=== PATIENT | male | born 1955 | race Caucasian/White ===

== ENCOUNTER 2016-08-24 08:29 | Outpatient (RCR) | payer OTHER ==
--- OUTSIDE RECORDS SUMMARY | 2016-05-29 09:39 | XMS REPORT | Continuity of Care Document ---
Author Author [facility] Organization [facility] Address Unknown Phone Unavailable Care Team Providers Care Tankage Grinder Name Role Phone AMBROSIO LILLY MD PCP Insurance Providers Payer Name Policy Number Subscriber Name Relationship [employer]IGNA [id number] Fabrice Lopez 19 Self / Same As Patient Advance Directives Directive Response Recorded Date/Time Advance Directives No 05/19/16 6:22pm Health Care Power of Law Reporter No 05/19/16 6:22pm Resuscitation Status Full Code 05/19/16 6:22pm Chief Complaint and Reason for Visit Chief Complaint Dental Problems/Pain Reason for Visit Dental abscess Problems Active Problems Medical Problem Onset Date Status Dental abscess Unknown Acute Medications Current Home Medications Medication Dose Units Route Directions Days/Qty Instructions Start Date Lisinopril 5 Mg 5 Mg Oral Daily 01/11/16 Insulin Glargine,Hum.rec.anlog 100 Unit/1 Ml 25 Unit Sub-Q Bedtime 01/11/16 Carbamazepine 200 Mg 200 Mg Oral Twice A Day 01/11/16 Insulin Glargine,Hum.rec.anlog 100 Unit/1 Ml 10 Unit Sub-Q Daily Hydrocodone/Acetaminophen 1 Each 2 Tab Oral Every 4HRS as needed for Pain 01/11/16 Omeprazole 20 Mg 20 Mg Oral Daily 01/11/16 Hydrocodone/Acetaminophen 1 Each 1 Each Oral Every 4HRS as needed for Pain 30 01/28/16 Amoxicillin/Potassium Clav 1 Each 1 Each Oral Twice A Day for Infection 20 05/19/16 Tramadol Hcl 50 Mg 50 Mg Oral Every 4HRS 20 05/19/16 Ondansetron 4 Mg 4 Mg Oral Every 4HRS for Nausea/Vomiting 10 05/19/16 Social History Social History Problem Response Recorded Date/Time Alcohol Use Denies Use 01/28/2016 9:46am Recreational Drug Use No 01/28/2016 9:46am Recent Foreign Travel No 05/19/2016 6:22pm Recent Infectious Disease Exposure No 05/19/2016 6:22pm Hospitalization with Isolation Denies 05/19/2016 6:22pm Smoking Status Current Everyday Smoker 05/19/2016 6:22pm Type Used Cigarettes 05/19/2016 6:22pm Recent Hopitalizations Yes 05/19/2016 6:22pm Hospitalization with Isolation Denies 05/19/2016 6:22pm Query Response Start Date Stop Date Smoking Status Current Everyday Smoker Hospital Discharge Instructions No hospital discharge instructions. Plan of Care Discharge Date 05/19/16 6:50pm Disposition 01 HOME, SELF-CARE Condition at Discharge Stable Instructions/Education Provided Dental Abscess (ED) Prescriptions See Medication Section Referrals ANAYA MANDEL - Primary Care Physician AMBROSIO LILLY MD - Primary Care Physician Additional Instructions/Education FREQUENT SALT WATER SWISHES TYLENOL AND MOTRIN NEEDED FOR PAIN OR FEVER FOLLOW UP WITH YOUR DR ON SUNDAY FOR FURTHER CARE All discharge instructions reviewed with patient and/or family. Voiced understanding. Functional Status No functional status results. Allergies, Adverse Reactions, Alerts No known allergies. Immunizations No immunization records. Vital Signs Acute Vital Signs Vital Response Date/Time Temperature (Fahrenheit) 97.7 degrees F (97.6 - 99.5) 05/19/2016 6:22pm Temperature (Calculated Celsius) 36.62881 degrees C (36.4 - 37.5) 05/19/2016 6:22pm Temperature Source Tympanic 05/19/2016 6:22pm Pulse Rate (adult) 103 bpm (60 - 90) 05/19/2016 6:22pm Respiratory Rate 20 bpm (12 - 24) 05/19/2016 6:22pm O2 Sat by Pulse Oximetry 96 % (88 - 100) 05/19/2016 6:22pm Blood Pressure 183/105 mm Hg 05/19/2016 6:22pm Blood Pressure Mean 131 mm Hg 05/19/2016 6:22pm Pain Numeric Pain Scale 7 05/19/2016 6:22pm Height (Feet) 5 feet 05/19/2016 6:22pm Height (Inches) 10.00 inches 05/19/2016 6:22pm Height (Calculated Centimeters) 177.586153 cm 05/19/2016 6:22pm Weight (Pounds) 200 pounds 05/19/2016 6:22pm Weight (Ounces) 0 oz 05/19/2016 6:22pm Weight (Calculated Grams) 85491.551 gm 05/19/2016 6:22pm Weight (Calculated Kilograms) 90.752380 kilograms 05/19/2016 6:22pm Calculated BMI 27.3 05/19/2016 6:22pm Capillary Refill Capillary Refill Less Than 3 Seconds 05/19/2016 6:22pm Results Laboratory Results Test Name Result Units Flags Reference Collection Date/Time Result Date/ Time Comments White Blood Count 5.2 10^3/uL 4.3-11.0 04/18/2016 1:37pm 04/18/2016 1: 51pm Red Blood Count 5.03 10^6/uL 4.35-5.85 04/18/2016 1:37pm 04/18/2016 1: 51pm Hemoglobin 15.7 G/DL 13.3-17.7 04/18/2016 1:37pm 04/18/2016 1:51pm Hematocrit 45 % 40-54 04/18/2016 1:37pm 04/18/2016 1:51pm Mean Corpuscular Volume 90 FL 80-99 04/18/2016 1:37pm 04/18/2016 1: 51pm Mean Corpuscular Hemoglobin 31 PG 25-34 04/18/2016 1:37pm 04/18/2016 1: 51pm Mean Corpuscular Hemoglobin Concent 35 G/DL 32-36 04/18/2016 1:37pm 1:51pm Red Cell Distribution Width 14.7 % H 10.0-14.5 04/18/2016 1:37pm 2015 1:51pm Platelet Count 126 10^3/uL L 130-400 04/18/2016 1:37pm 04/18/2016 1:51pm Mean Platelet Volume 9.5 FL 7.4-10.4 04/18/2016 1:37pm 04/18/2016 1: 51pm Neutrophils (%) (Auto) 39 % L 42-75 04/18/2016 1:37pm 04/18/2016 1:51pm Lymphocytes (%) (Auto) 45 % H 12-44 04/18/2016 1:37pm 04/18/2016 1:51pm Monocytes (%) (Auto) 15 % H 0-12 04/18/2016 1:37pm 04/18/2016 1:51pm Eosinophils (%) (Auto) 1 % 0-10 04/18/2016 1:37pm 04/18/2016 1:51pm Basophils (%) (Auto) 1 % 0-10 04/18/2016 1:37pm 04/18/2016 1:51pm Neutrophils # (Auto) 2.1 X 10^3 1.8-7.8 04/18/2016 1:37pm 04/18/2016 1: 51pm Lymphocytes # (Auto) 2.3 X 10^3 1.0-4.0 04/18/2016 1:37pm 04/18/2016 1: 51pm Monocytes # (Auto) 0.8 X 10^3 0.0-1.0 04/18/2016 1:37pm 04/18/2016 1: 51pm Eosinophils # (Auto) 0.0 10^3/uL 0.0-0.3 04/18/2016 1:37pm 04/18/2016 1 :51pm Basophils # (Auto) 0.0 10^3/uL 0.0-0.1 04/18/2016 1:37pm 04/18/2016 1: 51pm Sodium Level 131 MMOL/L L 135-145 04/18/2016 1:37pm 04/18/2016 2:18pm Potassium Level 4.3 MMOL/L 3.6-5.0 04/18/2016 1:37pm 04/18/2016 2:18pm Chloride Level 98 MMOL/L 98-107 04/18/2016 1:37pm 04/18/2016 2:18pm Carbon Dioxide Level 25 MMOL/L 21-32 04/18/2016 1:37pm 04/18/2016 2: 18pm Anion Gap 8 MMOL/L 5-14 04/18/2016 1:37pm 04/18/2016 2:18pm Blood Urea Nitrogen 10 MG/DL 7-18 04/18/2016 1:37pm 04/18/2016 2:18pm Creatinine 0.81 MG/DL 0.60-1.30 04/18/2016 1:37pm 04/18/2016 2:18pm BUN/Creatinine Ratio 12 04/18/2016 1:37pm 04/18/2016 2:18pm Estimat Glomerular Filtration Rate > 60 04/18/2016 1:37pm 2015 2:18pm GFR INTERPRETIVE DATA UNITS FOR ESTIMATED GFR (eGFR): mL/min/1.73 M2 REFERENCE RANGE FOR ESTIMATED GFR (eGFR) eGFR NORMAL eGFR >60 MODERATELY DECREASED eGFR 30-59 SEVERLY DECREASED eGFR 15-29 KIDNEY FAILURE <15 (OR DIALYSIS) Glucose Level 347 MG/DL H 70-105 04/18/2016 1:37pm 04/18/2016 2:18pm Calcium Level 8.8 MG/DL 8.5-10.1 04/18/2016 1:37pm 04/18/2016 2:18pm Magnesium Level 1.7 MG/DL L 1.8-2.4 03/01/2016 11:1503/01/2016 11: 42am Total Bilirubin 0.4 MG/DL 0.1-1.0 03/01/2016 11:1503/01/2016 11: 42am Alkaline Phosphatase 129 U/L 40-136 03/01/2016 11:1503/01/2016 11: 42am Aspartate Amino Transf (AST/SGOT) 30 U/L 5-34 03/01/2016 11:152015 11:42am Alanine Aminotransferase (ALT/SGPT) 40 U/L 0-55 03/01/2016 11:1501/2016 11:42am Lactate Dehydrogenase 225 U/L H 125-220 03/01/2016 11:1503/01/2016 11: 42am Total Protein 6.6 G/DL 6.4-8.2 03/01/2016 11:15am 03/01/2016 11:42am Albumin 3.6 G/DL 3.2-4.5 03/01/2016 11:15am 03/01/2016 11:42am Pending Laboratory Results Test Name Collection Date/Time Procedures No known history of procedures. Encounters Encounter Location Arrival/Admit Date Discharge/Depart Date Attending Provider Departed Emergency Room [facility] 05/19/16 5:55pm 05/19 6:50pm AMBROSIO HANSEN DO Registered Recurring [facility] 05/17/16 10:08am ANAYA MANDEL Discharged Recurring [facility] 01/26/16 9:15am 11:59pm ANAYA MANDEL Recent Diagnosis
[2016-05-30 14:42] LABS: BASOPHILS % (AUTO) 0 % (0-10); EOSINOPHILS # (AUTO) 0.1 10^3/uL (0.0-0.3); EOSINOPHILS % (AUTO) 1 % (0-10); LYMPHOCYTES # (AUTO) 2.1 X 10^3 (1.0-4.0); LYMPHOCYTES % (AUTO) 25 % (12-44); MEAN CORPUSCULAR HEMOGLOBIN 32 PG (25-34); MEAN CORPUSCULAR HGB CONC 36 G/DL (32-36); MEAN CORPUSCULAR VOLUME 89 FL (80-99); MEAN PLATELET VOLUME 9.4 FL (7.4-10.4); MONOCYTES # (AUTO) 0.9 X 10^3 (0.0-1.0); MONOCYTES % (AUTO) 11 % (0-12); NEUTROPHILS # (AUTO) 5.3 X 10^3 (1.8-7.8); NEUTROPHILS % (AUTO) 63 % (42-75); PLATELET COUNT 216 10^3/uL (130-400); RED BLOOD COUNT 4.72 10^6/uL (4.35-5.85); RED CELL DISTRIBUTION WIDTH 13.4 % (10.0-14.5); WHITE BLOOD COUNT 8.5 10^3/uL (4.3-11.0)
[2016-05-30 15:08] LABS: ALANINE AMINOTRANSFERASE 35 U/L (0-55); ALBUMIN 3.1 G/DL (3.2-4.5); ANION GAP 10 MMOL/L (5-14); ASPARTATE AMINO TRANSFERASE 28 U/L (5-34); BILIRUBIN,TOTAL 0.4 MG/DL (0.1-1.0); BLOOD UREA NITROGEN 11 MG/DL (7-18); BUN/CREATININE RATIO 14; CALCIUM 8.8 MG/DL (8.5-10.1); CARBON DIOXIDE 22 MMOL/L (21-32); CHLORIDE 99 MMOL/L (98-107); CREATININE SERUM 0.78 MG/DL (0.60-1.30); GFR ESTIMATED > 60; GLUCOSE 325 MG/DL (70-105); LACTATE DEHYDROGENASE 317 U/L (125-220); MAGNESIUM 1.8 MG/DL (1.8-2.4); POTASSIUM 4.2 MMOL/L (3.6-5.0); SODIUM 131 MMOL/L (135-145); TOTAL PROTEIN 6.4 G/DL (6.4-8.2)
[2016-06-16 10:57] LABS: BASOPHILS % (AUTO) 0 % (0-10); EOSINOPHILS % (AUTO) 0 % (0-10); LYMPHOCYTES # (AUTO) 0.5 X 10^3 (1.0-4.0); LYMPHOCYTES % (AUTO) 5 % (12-44); MEAN CORPUSCULAR HEMOGLOBIN 31 PG (25-34); MEAN CORPUSCULAR HGB CONC 35 G/DL (32-36); MEAN CORPUSCULAR VOLUME 88 FL (80-99); MEAN PLATELET VOLUME 9.6 FL (7.4-10.4); MONOCYTES # (AUTO) 0.1 X 10^3 (0.0-1.0); MONOCYTES % (AUTO) 1 % (0-12); NEUTROPHILS # (AUTO) 10.5 X 10^3 (1.8-7.8); NEUTROPHILS % (AUTO) 94 % (42-75); PLATELET COUNT 195 10^3/uL (130-400); RED BLOOD COUNT 5.48 10^6/uL (4.35-5.85); RED CELL DISTRIBUTION WIDTH 13.2 % (10.0-14.5); WHITE BLOOD COUNT 11.1 10^3/uL (4.3-11.0)
[2016-06-16 11:27] LABS: ALANINE AMINOTRANSFERASE 36 U/L (0-55); ALBUMIN 3.7 G/DL (3.2-4.5); ANION GAP 10 MMOL/L (5-14); ASPARTATE AMINO TRANSFERASE 28 U/L (5-34); BILIRUBIN,TOTAL 0.6 MG/DL (0.1-1.0); BLOOD UREA NITROGEN 18 MG/DL (7-18); BUN/CREATININE RATIO 20; CALCIUM 9.1 MG/DL (8.5-10.1); CARBON DIOXIDE 24 MMOL/L (21-32); CHLORIDE 98 MMOL/L (98-107); CREATININE SERUM 0.92 MG/DL (0.60-1.30); GFR ESTIMATED > 60; LACTATE DEHYDROGENASE 274 U/L (125-220); MAGNESIUM 1.8 MG/DL (1.8-2.4); POTASSIUM 5.1 MMOL/L (3.6-5.0); SODIUM 132 MMOL/L (135-145); TOTAL PROTEIN 7.6 G/DL (6.4-8.2)
[2016-06-16 11:30] LABS: GLUCOSE 523 MG/DL (70-105)
[2016-06-22 12:40] LABS: BASOPHILS % (AUTO) 0 % (0-10); EOSINOPHILS % (AUTO) 0 % (0-10); LYMPHOCYTES # (AUTO) 0.5 X 10^3 (1.0-4.0); LYMPHOCYTES % (AUTO) 6 % (12-44); MEAN CORPUSCULAR HEMOGLOBIN 32 PG (25-34); MEAN CORPUSCULAR HGB CONC 36 G/DL (32-36); MEAN CORPUSCULAR VOLUME 89 FL (80-99); MEAN PLATELET VOLUME 10.1 FL (7.4-10.4); MONOCYTES # (AUTO) 0.1 X 10^3 (0.0-1.0); MONOCYTES % (AUTO) 2 % (0-12); NEUTROPHILS # (AUTO) 7.9 X 10^3 (1.8-7.8); NEUTROPHILS % (AUTO) 92 % (42-75); PLATELET COUNT 170 10^3/uL (130-400); RED BLOOD COUNT 5.22 10^6/uL (4.35-5.85); RED CELL DISTRIBUTION WIDTH 12.5 % (10.0-14.5); WHITE BLOOD COUNT 8.6 10^3/uL (4.3-11.0)
[2016-06-22 12:56] LABS: ANION GAP 9 MMOL/L (5-14); BLOOD UREA NITROGEN 21 MG/DL (7-18); BUN/CREATININE RATIO 22; CARBON DIOXIDE 24 MMOL/L (21-32); CHLORIDE 96 MMOL/L (98-107); CREATININE SERUM 0.94 MG/DL (0.60-1.30); GFR ESTIMATED > 60; POTASSIUM 4.5 MMOL/L (3.6-5.0); SODIUM 129 MMOL/L (135-145)
[2016-06-22 12:59] LABS: GLUCOSE 500 MG/DL (70-105)
[2016-06-29 08:53] LABS: BASOPHILS % (AUTO) 0 % (0-10); EOSINOPHILS % (AUTO) 0 % (0-10); LYMPHOCYTES # (AUTO) 0.5 X 10^3 (1.0-4.0); LYMPHOCYTES % (AUTO) 11 % (12-44); MEAN CORPUSCULAR HEMOGLOBIN 32 PG (25-34); MEAN CORPUSCULAR HGB CONC 36 G/DL (32-36); MEAN CORPUSCULAR VOLUME 89 FL (80-99); MEAN PLATELET VOLUME 9.4 FL (7.4-10.4); MONOCYTES # (AUTO) 0.1 X 10^3 (0.0-1.0); MONOCYTES % (AUTO) 2 % (0-12); NEUTROPHILS # (AUTO) 4.2 X 10^3 (1.8-7.8); NEUTROPHILS % (AUTO) 87 % (42-75); PLATELET COUNT 159 10^3/uL (130-400); RED BLOOD COUNT 5.22 10^6/uL (4.35-5.85); RED CELL DISTRIBUTION WIDTH 13.2 % (10.0-14.5); WHITE BLOOD COUNT 4.8 10^3/uL (4.3-11.0)
[2016-06-29 09:22] LABS: ANION GAP 11 MMOL/L (5-14); BLOOD UREA NITROGEN 11 MG/DL (7-18); BUN/CREATININE RATIO 14; CALCIUM 9.3 MG/DL (8.5-10.1); CARBON DIOXIDE 20 MMOL/L (21-32); CHLORIDE 101 MMOL/L (98-107); CREATININE SERUM 0.78 MG/DL (0.60-1.30); GFR ESTIMATED > 60; GLUCOSE 279 MG/DL (70-105); POTASSIUM 4.3 MMOL/L (3.6-5.0); SODIUM 132 MMOL/L (135-145)
[2016-07-06 09:08] LABS: BASOPHILS % (AUTO) 1 % (0-10); EOSINOPHILS % (AUTO) 1 % (0-10); LYMPHOCYTES % (AUTO) 40 % (12-44); MEAN CORPUSCULAR HEMOGLOBIN 32 PG (25-34); MEAN CORPUSCULAR HGB CONC 36 G/DL (32-36); MEAN CORPUSCULAR VOLUME 90 FL (80-99); MEAN PLATELET VOLUME 9.9 FL (7.4-10.4); MONOCYTES # (AUTO) 0.4 X 10^3 (0.0-1.0); MONOCYTES % (AUTO) 14 % (0-12); NEUTROPHILS # (AUTO) 1.2 X 10^3 (1.8-7.8); NEUTROPHILS % (AUTO) 45 % (42-75); PLATELET COUNT 106 10^3/uL (130-400); RED BLOOD COUNT 4.68 10^6/uL (4.35-5.85); RED CELL DISTRIBUTION WIDTH 13.9 % (10.0-14.5); WHITE BLOOD COUNT 2.6 10^3/uL (4.3-11.0)
[2016-07-06 09:44] LABS: ANION GAP 9 MMOL/L (5-14); BLOOD UREA NITROGEN 12 MG/DL (7-18); BUN/CREATININE RATIO 16; CALCIUM 8.6 MG/DL (8.5-10.1); CARBON DIOXIDE 24 MMOL/L (21-32); CHLORIDE 101 MMOL/L (98-107); CREATININE SERUM 0.74 MG/DL (0.60-1.30); GFR ESTIMATED > 60; GLUCOSE 282 MG/DL (70-105); SODIUM 134 MMOL/L (135-145)
[2016-07-13 09:40] LABS: BASOPHILS % (AUTO) 1 % (0-10); EOSINOPHILS % (AUTO) 1 % (0-10); LYMPHOCYTES # (AUTO) 1.1 X 10^3 (1.0-4.0); LYMPHOCYTES % (AUTO) 31 % (12-44); MEAN CORPUSCULAR HEMOGLOBIN 32 PG (25-34); MEAN CORPUSCULAR HGB CONC 35 G/DL (32-36); MEAN CORPUSCULAR VOLUME 89 FL (80-99); MONOCYTES # (AUTO) 0.9 X 10^3 (0.0-1.0); MONOCYTES % (AUTO) 25 % (0-12); NEUTROPHILS # (AUTO) 1.6 X 10^3 (1.8-7.8); NEUTROPHILS % (AUTO) 43 % (42-75); PLATELET COUNT 105 10^3/uL (130-400); RED BLOOD COUNT 5.14 10^6/uL (4.35-5.85); RED CELL DISTRIBUTION WIDTH 14.3 % (10.0-14.5); WHITE BLOOD COUNT 3.7 10^3/uL (4.3-11.0)
[2016-07-13 10:08] LABS: ALANINE AMINOTRANSFERASE 45 U/L (0-55); ALBUMIN 3.6 G/DL (3.2-4.5); ANION GAP 8 MMOL/L (5-14); ASPARTATE AMINO TRANSFERASE 44 U/L (5-34); BILIRUBIN,TOTAL 0.5 MG/DL (0.1-1.0); BLOOD UREA NITROGEN 15 MG/DL (7-18); BUN/CREATININE RATIO 20; CALCIUM 8.8 MG/DL (8.5-10.1); CARBON DIOXIDE 26 MMOL/L (21-32); CHLORIDE 100 MMOL/L (98-107); CREATININE SERUM 0.76 MG/DL (0.60-1.30); GFR ESTIMATED > 60; GLUCOSE 174 MG/DL (70-105); LACTATE DEHYDROGENASE 394 U/L (125-220); MAGNESIUM 1.7 MG/DL (1.8-2.4); POTASSIUM 3.9 MMOL/L (3.6-5.0); SODIUM 134 MMOL/L (135-145)
[2016-07-19 08:53] LABS: BASOPHILS # (AUTO) 0.1 10^3/uL (0.0-0.1); BASOPHILS % (AUTO) 1 % (0-10); EOSINOPHILS # (AUTO) 0.1 10^3/uL (0.0-0.3); EOSINOPHILS % (AUTO) 1 % (0-10); LYMPHOCYTES # (AUTO) 1.1 X 10^3 (1.0-4.0); LYMPHOCYTES % (AUTO) 17 % (12-44); MEAN CORPUSCULAR HEMOGLOBIN 31 PG (25-34); MEAN CORPUSCULAR HGB CONC 35 G/DL (32-36); MEAN CORPUSCULAR VOLUME 89 FL (80-99); MONOCYTES # (AUTO) 0.5 X 10^3 (0.0-1.0); MONOCYTES % (AUTO) 8 % (0-12); NEUTROPHILS # (AUTO) 4.7 X 10^3 (1.8-7.8); NEUTROPHILS % (AUTO) 73 % (42-75); PLATELET COUNT 141 10^3/uL (130-400); RED BLOOD COUNT 4.96 10^6/uL (4.35-5.85); RED CELL DISTRIBUTION WIDTH 14.1 % (10.0-14.5); WHITE BLOOD COUNT 6.4 10^3/uL (4.3-11.0)
[2016-07-19 09:14] LABS: ANION GAP 9 MMOL/L (5-14); BLOOD UREA NITROGEN 12 MG/DL (7-18); BUN/CREATININE RATIO 16; CALCIUM 8.9 MG/DL (8.5-10.1); CARBON DIOXIDE 24 MMOL/L (21-32); CHLORIDE 102 MMOL/L (98-107); CREATININE SERUM 0.73 MG/DL (0.60-1.30); GFR ESTIMATED > 60; GLUCOSE 139 MG/DL (70-105); POTASSIUM 4.1 MMOL/L (3.6-5.0); SODIUM 135 MMOL/L (135-145)
[2016-07-27 08:50] LABS: BASOPHILS % (AUTO) 1 % (0-10); EOSINOPHILS % (AUTO) 1 % (0-10); LYMPHOCYTES # (AUTO) 1.5 X 10^3 (1.0-4.0); LYMPHOCYTES % (AUTO) 30 % (12-44); MEAN CORPUSCULAR HEMOGLOBIN 32 PG (25-34); MEAN CORPUSCULAR HGB CONC 36 G/DL (32-36); MEAN CORPUSCULAR VOLUME 89 FL (80-99); MEAN PLATELET VOLUME 9.3 FL (7.4-10.4); MONOCYTES # (AUTO) 0.6 X 10^3 (0.0-1.0); MONOCYTES % (AUTO) 12 % (0-12); NEUTROPHILS # (AUTO) 2.8 X 10^3 (1.8-7.8); NEUTROPHILS % (AUTO) 56 % (42-75); PLATELET COUNT 149 10^3/uL (130-400); RED BLOOD COUNT 4.86 10^6/uL (4.35-5.85); RED CELL DISTRIBUTION WIDTH 14.4 % (10.0-14.5)
[2016-07-27 09:13] LABS: ANION GAP 10 MMOL/L (5-14); BLOOD UREA NITROGEN 13 MG/DL (7-18); BUN/CREATININE RATIO 17; CALCIUM 8.8 MG/DL (8.5-10.1); CARBON DIOXIDE 24 MMOL/L (21-32); CHLORIDE 103 MMOL/L (98-107); CREATININE SERUM 0.76 MG/DL (0.60-1.30); GFR ESTIMATED > 60; GLUCOSE 181 MG/DL (70-105); POTASSIUM 3.7 MMOL/L (3.6-5.0); SODIUM 137 MMOL/L (135-145)
[2016-08-03 08:49] LABS: BASOPHILS % (AUTO) 1 % (0-10); EOSINOPHILS # (AUTO) 0.1 10^3/uL (0.0-0.3); EOSINOPHILS % (AUTO) 1 % (0-10); LYMPHOCYTES # (AUTO) 1.4 X 10^3 (1.0-4.0); LYMPHOCYTES % (AUTO) 26 % (12-44); MEAN CORPUSCULAR HEMOGLOBIN 32 PG (25-34); MEAN CORPUSCULAR HGB CONC 36 G/DL (32-36); MEAN CORPUSCULAR VOLUME 89 FL (80-99); MEAN PLATELET VOLUME 9.2 FL (7.4-10.4); MONOCYTES # (AUTO) 0.7 X 10^3 (0.0-1.0); MONOCYTES % (AUTO) 13 % (0-12); NEUTROPHILS # (AUTO) 3.2 X 10^3 (1.8-7.8); NEUTROPHILS % (AUTO) 59 % (42-75); PLATELET COUNT 142 10^3/uL (130-400); RED CELL DISTRIBUTION WIDTH 14.6 % (10.0-14.5); WHITE BLOOD COUNT 5.4 10^3/uL (4.3-11.0)
[2016-08-03 09:43] LABS: ANION GAP 10 MMOL/L (5-14); BLOOD UREA NITROGEN 10 MG/DL (7-18); BUN/CREATININE RATIO 14; CALCIUM 8.8 MG/DL (8.5-10.1); CARBON DIOXIDE 24 MMOL/L (21-32); CHLORIDE 103 MMOL/L (98-107); CREATININE SERUM 0.72 MG/DL (0.60-1.30); GFR ESTIMATED > 60; GLUCOSE 119 MG/DL (70-105); POTASSIUM 3.9 MMOL/L (3.6-5.0); SODIUM 137 MMOL/L (135-145)
[2016-08-10 09:40] LABS: BASOPHILS % (AUTO) 0 % (0-10); EOSINOPHILS # (AUTO) 0.1 10^3/uL (0.0-0.3); EOSINOPHILS % (AUTO) 1 % (0-10); LYMPHOCYTES # (AUTO) 1.1 X 10^3 (1.0-4.0); LYMPHOCYTES % (AUTO) 16 % (12-44); MEAN CORPUSCULAR HEMOGLOBIN 31 PG (25-34); MEAN CORPUSCULAR HGB CONC 35 G/DL (32-36); MEAN CORPUSCULAR VOLUME 88 FL (80-99); MEAN PLATELET VOLUME 9.5 FL (7.4-10.4); MONOCYTES # (AUTO) 0.9 X 10^3 (0.0-1.0); MONOCYTES % (AUTO) 12 % (0-12); NEUTROPHILS # (AUTO) 5.1 X 10^3 (1.8-7.8); NEUTROPHILS % (AUTO) 71 % (42-75); PLATELET COUNT 158 10^3/uL (130-400); RED BLOOD COUNT 5.24 10^6/uL (4.35-5.85); RED CELL DISTRIBUTION WIDTH 14.9 % (10.0-14.5); WHITE BLOOD COUNT 7.2 10^3/uL (4.3-11.0)
[2016-08-10 10:07] LABS: ALANINE AMINOTRANSFERASE 44 U/L (0-55); ALBUMIN 3.5 G/DL (3.2-4.5); ANION GAP 7 MMOL/L (5-14); ASPARTATE AMINO TRANSFERASE 49 U/L (5-34); BILIRUBIN,TOTAL 0.6 MG/DL (0.1-1.0); BLOOD UREA NITROGEN 13 MG/DL (7-18); BUN/CREATININE RATIO 15; CALCIUM 8.8 MG/DL (8.5-10.1); CARBON DIOXIDE 24 MMOL/L (21-32); CHLORIDE 103 MMOL/L (98-107); CREATININE SERUM 0.85 MG/DL (0.60-1.30); GFR ESTIMATED > 60; GLUCOSE 316 MG/DL (70-105); LACTATE DEHYDROGENASE 504 U/L (125-220); MAGNESIUM 1.7 MG/DL (1.8-2.4); POTASSIUM 4.3 MMOL/L (3.6-5.0); SODIUM 134 MMOL/L (135-145); TOTAL PROTEIN 6.5 G/DL (6.4-8.2)
[2016-08-17 09:46] LABS: BASOPHILS % (AUTO) 1 % (0-10); EOSINOPHILS # (AUTO) 0.1 10^3/uL (0.0-0.3); EOSINOPHILS % (AUTO) 2 % (0-10); LYMPHOCYTES % (AUTO) 17 % (12-44); MEAN CORPUSCULAR HEMOGLOBIN 32 PG (25-34); MEAN CORPUSCULAR HGB CONC 36 G/DL (32-36); MEAN CORPUSCULAR VOLUME 89 FL (80-99); MEAN PLATELET VOLUME 9.5 FL (7.4-10.4); MONOCYTES # (AUTO) 0.6 X 10^3 (0.0-1.0); MONOCYTES % (AUTO) 11 % (0-12); NEUTROPHILS # (AUTO) 4.1 X 10^3 (1.8-7.8); NEUTROPHILS % (AUTO) 69 % (42-75); PLATELET COUNT 150 10^3/uL (130-400); RED BLOOD COUNT 4.87 10^6/uL (4.35-5.85); RED CELL DISTRIBUTION WIDTH 14.1 % (10.0-14.5); WHITE BLOOD COUNT 5.9 10^3/uL (4.3-11.0)
[2016-08-17 10:06] LABS: ANION GAP 9 MMOL/L (5-14); BLOOD UREA NITROGEN 15 MG/DL (7-18); BUN/CREATININE RATIO 17; CALCIUM 8.6 MG/DL (8.5-10.1); CARBON DIOXIDE 25 MMOL/L (21-32); CHLORIDE 99 MMOL/L (98-107); CREATININE SERUM 0.86 MG/DL (0.60-1.30); GFR ESTIMATED > 60; GLUCOSE 331 MG/DL (70-105); POTASSIUM 4.3 MMOL/L (3.6-5.0); SODIUM 133 MMOL/L (135-145)
[~2016-08-24] VITALS: Ht 175.3 cm; Wt 88.5 kg
[~2016-08-24 08:29] MED LIST: AMOX-358 PO; APIX5TAB PO; CARB-88 PO; CARB200T2 PO; CARB400T8 PO; CARBOPLATIN IV SCH; DILT300C51 PO; FAMOTIDINE 20MG/2ML IV (CANCER CTR) IV SCH; FLUO20TA28 PO; FURO20TA4 PO; HYDR-3454 PO; HYDR-3812 PO; HYDR-757 PO; INSU100V16 SQ; INSU100V6 SQ; LISI-556 PO; NORMAL SALINE IV SCH; NS IV 1000 ML (CANCER CTR) 1,000 ML ONE; NS IV 1000 ML (CANCER CTR) IV SCH; NS IV 500 ML (CANCER CENTER) 500 ML ONE; OMEP20CA6 PO; OMEP40CA36 PO; ONDA4TAB8 PO; ONDA8TAB6 PO; ONDN4T PO; PACLITAXEL SEMI SYNTHETIC IV SCH; PALONOSETRON 0.25 MG, DEXAMETHASONE 10 MG/NS 50 ML IVPB IV PRN; SUCR1TAB PO; TRAM-42 PO; TRAM50TA2 PO; [UNRECOGNIZED DRUG - OTHER] IV SCH; diphenhydrAMINE 25 MG TAB (BENADRYL) CANCER CENTER PO SCH; diphenhydrAMINE 50 MG/ML INJ (CANCER CENTER) IV PRN; diphenhydrAMINE 50 MG/ML INJ (CANCER CENTER) ONE; inSUlin (REGULAR) HUMAN 1 UNIT/0.01 ML (CHARGE PER UNIT) SC ONE
[2016-08-24 08:47] LABS: BASOPHILS % (AUTO) 1 % (0-10); EOSINOPHILS # (AUTO) 0.1 10^3/uL (0.0-0.3); EOSINOPHILS % (AUTO) 2 % (0-10); LYMPHOCYTES # (AUTO) 1.3 X 10^3 (1.0-4.0); LYMPHOCYTES % (AUTO) 23 % (12-44); MEAN CORPUSCULAR HEMOGLOBIN 32 PG (25-34); MEAN CORPUSCULAR HGB CONC 36 G/DL (32-36); MEAN CORPUSCULAR VOLUME 89 FL (80-99); MEAN PLATELET VOLUME 9.9 FL (7.4-10.4); MONOCYTES # (AUTO) 0.6 X 10^3 (0.0-1.0); MONOCYTES % (AUTO) 11 % (0-12); NEUTROPHILS # (AUTO) 3.6 X 10^3 (1.8-7.8); NEUTROPHILS % (AUTO) 63 % (42-75); PLATELET COUNT 184 10^3/uL (130-400); RED BLOOD COUNT 4.76 10^6/uL (4.35-5.85); RED CELL DISTRIBUTION WIDTH 14.5 % (10.0-14.5); WHITE BLOOD COUNT 5.7 10^3/uL (4.3-11.0)
[2016-08-24 09:17] LABS: ANION GAP 8 MMOL/L (5-14); BLOOD UREA NITROGEN 13 MG/DL (7-18); BUN/CREATININE RATIO 19; CALCIUM 8.9 MG/DL (8.5-10.1); CARBON DIOXIDE 25 MMOL/L (21-32); CHLORIDE 98 MMOL/L (98-107); CREATININE SERUM 0.69 MG/DL (0.60-1.30); GFR ESTIMATED > 60; GLUCOSE 186 MG/DL (70-105); POTASSIUM 3.9 MMOL/L (3.6-5.0); SODIUM 131 MMOL/L (135-145)
[2016-10-06] MEDS ORDERED: FENT1PAT10 TOP (10:48)
== END 2016-08-27 | disposition home or self-care (01) ==
LOC: ONC 08:29
PROVIDERS: ATTEND Internal Medicine Hematology & Oncology
DX: Z51.11 Encounter for antineoplastic chemotherapy (principal); Z51.0 Encounter for antineoplastic radiation therapy; C34.02 Malignant neoplasm of left main bronchus; C77.1 Secondary and unspecified malignant neoplasm of intrathoracic lymph nodes; G40.909 Epilepsy, unspecified, not intractable, without status epilepticus; E11.9 Type 2 diabetes mellitus without complications; F17.210 Nicotine dependence, cigarettes, uncomplicated
CPT/HCPCS: 36415; 36591; 77336; 77412; 77417; 80048; 80053; 83615; 83735; 85025; 96372; 96375; 96413; 96417; 99213

== ENCOUNTER → 2016-08-30 | Outpatient (CLI) | payer OTHER ==
[~2016-08-30] MED LIST changes: -CARBOPLATIN IV SCH; +DILT300C36 PO; -FAMOTIDINE 20MG/2ML IV (CANCER CTR) IV SCH; +FENT1PAT10 TOP; +FENT1PAT8 TD; +FENT1PAT9 TD; +FURO-124 PO; +FURO-125 PO; +LACT10SO PO; -NORMAL SALINE IV SCH; -NS IV 1000 ML (CANCER CTR) 1,000 ML ONE; -NS IV 1000 ML (CANCER CTR) IV SCH; -NS IV 500 ML (CANCER CENTER) 500 ML ONE; +ONDA8TAB9 SL; +OXYC10TA7 PO; -PACLITAXEL SEMI SYNTHETIC IV SCH; -PALONOSETRON 0.25 MG, DEXAMETHASONE 10 MG/NS 50 ML IVPB IV PRN; +PANT40TA2 PO; +PANT40TA3 PO; +POTA-51 PO; +PROM25TA14 PO; +RELISTOR12 SQ; +SUCR1TAB36 PO; -[UNRECOGNIZED DRUG - OTHER] IV SCH; -diphenhydrAMINE 25 MG TAB (BENADRYL) CANCER CENTER PO SCH; -diphenhydrAMINE 50 MG/ML INJ (CANCER CENTER) IV PRN; -diphenhydrAMINE 50 MG/ML INJ (CANCER CENTER) ONE; -inSUlin (REGULAR) HUMAN 1 UNIT/0.01 ML (CHARGE PER UNIT) SC ONE
--- OUTSIDE RECORDS SUMMARY | 2016-08-30 06:48 | XMS REPORT | Continuity of Care Document ---
Author Author [facility] Organization [facility] Address Unknown Phone Unavailable Care Team Providers Care Dedicated Driver Name Role Phone AMBROSIO LILLY MD PCP Insurance Providers Payer Name Policy Number Subscriber Name Relationship [employer] [id number] Fabrice Lopez 19 Self / Same As Patient Advance Directives Directive Response Recorded Date/Time Advance Directives No 05/19/16 6:22pm Health Care Power of After School Caregiver No 05/19/16 6:22pm Resuscitation Status Full Code [...] - 99.5) 05/19/2016 6:22pm Temperature (Calculated Celsius) 36.29629 degrees C (36.4 - 37.5) 05/19/2016 6:22pm [...] 10.00 inches 05/19/2016 6:22pm Height (Calculated Centimeters) 177.481194 cm 05/19/2016 6:22pm Weight (Pounds) 200 pounds 05/19/2016 6:22pm Weight (Ounces) 0 oz 05/19/2016 6:22pm Weight (Calculated Grams) 45592.551 gm 05/19/2016 6:22pm Weight (Calculated Kilograms) 90.044850 kilograms 05/19/2016 6:22pm Calculated BMI 27.3 05/19/2016 [...] Date Attending Provider Departed Emergency Room [facility] 05/19/16 5:55pm 05/19 6:50pm AMBROSIO HANSEN DO Registered Recurring [facility] 05/17/16 10:08am ANAYA MANDEL Discharged Recurring [facility] 01/26/16 9:15am 11:59pm ANAYA MANDEL Recent Diagnosis
--- NOTE | 2016-08-30 11:48 | Diagnostic Imaging Report ---
PROCEDURE: US Gallbladder. INDICATION: History of small cell lung cancer. Right upper quadrant pain X3 months increasing severity. Recent CT imaging demonstrated new hepatic metastasis. TECHNIQUE: Multiple grayscale sonographic images were obtained of the right upper quadrant of the abdomen. CORRELATION STUDY: CT 08/25/2016 FINDINGS: LIVER: The liver measures 21 cm. There are multiple solid masses within the liver. There appear to be at least 3 or 4 within the right lobe and at least one within the left lobe. Largest measuring 6.0 x 4.8 x 5.0 cm. GALLBLADDER: Gallbladder is present demonstrates a rather significant gallbladder wall thickening at 7 mm. Suggestion of a mass near the gallbladder neck measuring 3.1 x 1.7 x 1.9 cm. Additional mass in the lexus hepatis that may be reflective of a lymph node measuring 3.5 x 3.7 x 4.0 cm. COMMON BILE DUCT: Upper limits of normal at 6 mm. RIGHT KIDNEY: Measures 12.7 cm. No hydronephrosis. PANCREAS: Largely obscured. OTHER: No significant right upper quadrant ascites. IMPRESSION: 1. Enlarged liver with multiple hepatic masses most compatible with metastatic disease. 2. Abnormal gallbladder wall thickening without definitive shadowing gallstones or significant bile duct dilatation. This finding is nonspecific. However there are at least 2 masses in and around the gallbladder neck and lexus hepatic region likely enlarged lymph nodes. Possibility that this results in some obstruction at the level of the gallbladder neck not excluded. If further assessment is desired, nuclear medicine HIDA scan recommended. Dictated by: Dictated on workstation # [id number]
== END ==
LOC: RAD 06:45
PROVIDERS: ATTEND Nurse Practitioner Adult Health
DX: R10.11 Right upper quadrant pain (principal); R93.8 Abnormal findings on diagnostic imaging of other specified body structures
CPT/HCPCS: 76705

== ENCOUNTER 2016-09-24 14:46 | Inpatient (IN) | payer OTHER ==
[~2016-09-24] VITALS: Ht 177.8 cm; Wt 82.6 kg
[~2016-09-24 14:46] MED LIST changes: -DILT300C36 PO; -FENT1PAT10 TOP; -FENT1PAT8 TD; -FENT1PAT9 TD; -FURO-124 PO; -FURO-125 PO; -LACT10SO PO; -ONDA8TAB9 SL; -OXYC10TA7 PO; -PANT40TA2 PO; -PANT40TA3 PO; -POTA-51 PO; -PROM25TA14 PO; -RELISTOR12 SQ; -SUCR1TAB36 PO
--- OUTSIDE RECORDS SUMMARY | 2016-09-24 14:53 | XMS REPORT | Continuity of Care Document ---
Author Author [facility] Organization [facility] Address Unknown Phone Unavailable Care Team Providers Care Street Light Lamp Cleaner Name Role Phone AMBROSIO LILLY MD PCP Insurance Providers Payer Name Policy Number Subscriber Name Relationship [employer] [id number] Fabrice Lopez 19 Self / Same As Patient Advance Directives Directive Response Recorded Date/Time Advance Directives No 05/19/16 6:22pm Health Care Power of Bible Teacher No 05/19/16 6:22pm Resuscitation Status Full Code [...] - 99.5) 05/19/2016 6:22pm Temperature (Calculated Celsius) 36.78385 degrees C (36.4 - 37.5) 05/19/2016 6:22pm [...] 10.00 inches 05/19/2016 6:22pm Height (Calculated Centimeters) 177.662675 cm 05/19/2016 6:22pm Weight (Pounds) 200 pounds 05/19/2016 6:22pm Weight (Ounces) 0 oz 05/19/2016 6:22pm Weight (Calculated Grams) 29655.551 gm 05/19/2016 6:22pm Weight (Calculated Kilograms) 90.557097 kilograms 05/19/2016 6:22pm Calculated BMI 27.3 05/19/2016 [...] Date Attending Provider Departed Emergency Room [facility] 05/19/16 5:55pm 05/19 6:50pm AMBROSIO HANSEN DO Registered Recurring [facility] 05/17/16 10:08am ANAYA MANDEL Discharged Recurring [facility] 01/26/16 9:15am 11:59pm ANAYA MANDEL Recent Diagnosis
[2016-09-24 15:29] LABS: BASOPHILS % (AUTO) 0 % (0-10); EOSINOPHILS % (AUTO) 0 % (0-10); LYMPHOCYTES # (AUTO) 1.4 X 10^3 (1.0-4.0); LYMPHOCYTES % (AUTO) 17 % (12-44); MEAN CORPUSCULAR HEMOGLOBIN 32 PG (25-34); MEAN CORPUSCULAR HGB CONC 36 G/DL (32-36); MEAN CORPUSCULAR VOLUME 89 FL (80-99); MEAN PLATELET VOLUME 9.4 FL (7.4-10.4); MONOCYTES % (AUTO) 13 % (0-12); NEUTROPHILS # (AUTO) 5.6 X 10^3 (1.8-7.8); NEUTROPHILS % (AUTO) 69 % (42-75); PLATELET COUNT 292 10^3/uL (130-400); RED BLOOD COUNT 4.86 10^6/uL (4.35-5.85); RED CELL DISTRIBUTION WIDTH 14.6 % (10.0-14.5)
[2016-09-24 15:43] LABS: ALANINE AMINOTRANSFERASE 50 U/L (0-55); ALBUMIN 3.4 G/DL (3.2-4.5); ANION GAP 12 MMOL/L (5-14); ASPARTATE AMINO TRANSFERASE 54 U/L (5-34); BLOOD UREA NITROGEN 11 MG/DL (7-18); BUN/CREATININE RATIO 14; CALCIUM 8.8 MG/DL (8.5-10.1); CARBON DIOXIDE 24 MMOL/L (21-32); CHLORIDE 96 MMOL/L (98-107); CREATININE SERUM 0.76 MG/DL (0.60-1.30); GFR ESTIMATED > 60; GLUCOSE 129 MG/DL (70-105); POTASSIUM 3.9 MMOL/L (3.6-5.0); SODIUM 132 MMOL/L (135-145); TOTAL PROTEIN 6.5 G/DL (6.4-8.2)
[2016-09-24] MEDS: NS IV 1000 ML 1,000 ML IV SCH ×2 (15:44→18:23)
[2016-09-24] MEDS ORDERED: PROMETHAZINE INJ 25 MG/ML (PHENERGAN) AMP IVP ONE (15:45)
--- NOTE | 2016-09-24 15:48 | ED General ---
General Chief Complaint: Abdominal/GI Problems Stated Complaint: VOMITING/ABD PAIN Nursing Triage Note: AMB TO ROOM PMH OF CA LUNG WITH METS TO LIVER. HAS NOT BEEN ABLE TO EAT HAS FULL FEELING IN ABD ALL TIME. Nursing Sepsis Screen: No Definite Risk Source of Information: Patient, Family Exam Limitations: No Limitations History of Present Illness Time Seen by Provider: 15:43 Initial Comments The patient is a 61-year-old white male known to me from a previous admission. 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 In addition to the lung mass and multiple nodes involved in the chest, there are increasing nodules in the right lobe of the liver. He reports that he feels nauseated all the time. When he eats he immediately feels as if he is full. He has trouble with constipation and regrets having stopped taking the MiraLAX he had been using. It is noted after reviewing the August 25 CT scan that even though he had been 12 hours or more from a feeding, his stomach appeared to be full of food matter. He has stopped taking his morphine for 5 days ago because he thought it was not helping with regard to pain and that it was making him feel more nauseated. Timing/Duration: Other (progressive for weeks) Associated Systoms: Loss of Appetite Malaise Nausea/Vomiting Weakness Allergies and Home Medications Allergies Coded Allergies: No Known Drug Allergies (Unverified , 01/11/16) Home Medications Amoxicillin/Potassium Clav 1 Each Tablet #20 1 TAB PO BID (Reported) FILLED #20 TABLETS 05-19-16 Apixaban 5 Mg Tablet #60 5 MG PO BID Prescribed by: BRANDI COLBERT on 05/24/16 1052 Carbamazepine 400 Mg Tab.er.12h 400 MG PO BID (Reported) Diltiazem HCl 300 Mg Cap.er.24h #30 300 MG PO DAILY Prescribed by: BRANDI COLBERT on 05/24/16 1052 Fluoxetine HCl 20 Mg Tablet 20 MG PO DAILY (Reported) Furosemide 20 Mg Tablet 20 MG PO DAILY PRN PRN EDEMA (Reported) Hydrocodone/Acetaminophen 1 Each Tablet 1-2 TAB PO Q4H PRN PRN PAIN (Reported) Insulin Aspart 100 Unit/1 Ml Susp SQ AC PRN PRN PER SLIDING SCALE (Reported) Insulin Glargine,Hum.rec.anlog 100 Unit/1 Ml Vial 30 UNIT SQ BID (Reported) Lisinopril 5 Mg Tablet 5 MG PO DAILY (Reported) Omeprazole 40 Mg Capsule.dr 40 MG PO DAILY (Reported) Ondansetron HCl 4 Mg Tab 4 MG PO Q4H PRN PRN NAUSEA (Reported) Sucralfate 1 Gm Tablet 1 GM PO QID (Reported) Tramadol HCl 50 Mg Tablet 50 MG PO Q4H PRN PRN PAIN (Reported) Constitutional: see HPI EENTM: no symptoms reported Respiratory: dyspnea on exertion short of breath Cardiovascular: no symptoms reported Gastrointestinal: abdominal pain constipation nausea vomiting other (early satiety) Genitourinary: decreased output Musculoskeletal: muscle weakness Skin: no symptoms reported Psychiatric/Neurological: No Symptoms Reported Past Hnddibe-Twdvjg-Kpxkps Hx Patient Social History Alcohol Use: Denies Use Recreational Drug Use: No Smoking Status: Current Everyday Smoker Type Used: Cigarettes Recent Foreign Travel: No Contact w/Someone Who Travel: No Recent Infectious Disease Expo: No Recent Hopitalizations: No Physical Abuse Screen: No Sexual Abuse: No Immunizations Up To Date Tetanus Booster (TDap): Less than 5yrs PED Vaccines UTD: Yes Date of Pneumonia Vaccine: December 25, 2012 Seasonal Allergies Seasonal Allergies: Yes Surgeries HX Surgeries: Yes (INGUINAL HERNIA, LEFT SHOULDER FX, bronchoscopy 01/10/16) Surgeries: Abdominal, Orthopedic Respiratory Hx Respiratory Disorders: Yes (SMALL CELL LUNG CANCER) Respiratory Disorders: COPD Cardiovascular Hx Cardiac Disorders: Yes Cardiac Disorders: Hypertension Neurological Hx Neurological Disorders: No Neurological Disorders: Seizure Disorder Reproductive System Hx Reproductive Disorders: No Genitourinary Hx Genitourinary Disorders: No Gastrointestinal Hx Gastrointestinal Disorders: Yes Gastrointestinal Disorders: Gastroesophageal Reflux Musculoskeletal Hx Musculoskeletal Disorders: No Endocrine Hx Endocrine Disorders: Yes Endocrine Disorders: Diabetes, Insulin dep HEENT HX ENT Disorders: No Loss of Vision: Denies Hearing Impairment: Denies Cancer Hx Cancer: Yes Cancer: Lung Psychosocial Hx Psychiatric Problems: No Integumentary HX Skin/Integumentary Disorder: No Blood Transfusions Hx Blood Disorders: No Adverse Reaction to a Blood Tr: No Family Medical History Significant Family History: Cancer Family Medial History: Diabetes mellitus 19 MOTHER, Onset:40's - 50 FH: COPD (chronic obstructive pulmonary disease) 19 FATHER, , Onset:60 years & older 19 MOTHER, Onset:60 years & older FH: stroke G8 SISTER, , Age:62, Onset:60 years & older Physical Exam Vital Signs Vital Sign - Last 12Hours 09/24/16 14:50 Temp 98.6 Pulse 83 Resp 18 B/P 137/93 Capillary Refill : Less Than 3 Seconds General Appearance: Other (appears in declining health and energy since I last saw him in June) Eyes: Bilateral Eye Normal Inspection HEENT: Normal ENT Inspection Neck: Normal Inspection Respiratory: Decreased Breath Sounds Cardiovascular: Regular Rate, Rhythm No Edema No Gallop No JVD No Murmur Normal Peripheral Pulses Gastrointestinal: Other Back: Normal Inspection Extremity: Normal Capillary Refill Normal Inspection Normal Range of Motion Non Tender No Calf Tenderness No Pedal Edema Skin: Other (sallow) Progress/Results/Core Measures Results/Orders Lab Results Laboratory Tests Test 09/24/16 15:17 Range/Units Alanine Aminotransferase (ALT/SGPT) 50 0-55 U/L Albumin 3.4 3.2-4.5 G/DL Alkaline Phosphatase 485 H 40-136 U/L Anion Gap 12 5-14 MMOL/L Aspartate Amino Transf (AST/SGOT) 54 H 5-34 U/L BUN/Creatinine Ratio 14 Basophils # (Auto) 0.0 0.0-0.1 10^3/uL Basophils (%) (Auto) 0 0-10 % Blood Urea Nitrogen 11 7-18 MG/DL Calcium Level 8.8 8.5-10.1 MG/DL Carbon Dioxide Level 24 21-32 MMOL/L Chloride Level 96 L 98-107 MMOL/L Creatinine 0.76 0.60-1.30 MG/DL Eosinophils # (Auto) 0.0 0.0-0.3 10^3/uL Eosinophils (%) (Auto) 0 0-10 % Estimat Glomerular Filtration Rate > 60 Glucose Level 129 H 70-105 MG/DL Hematocrit 43 40-54 % Hemoglobin 15.5 13.3-17.7 G/DL Lymphocytes # (Auto) 1.4 1.0-4.0 X 10^3 Lymphocytes (%) (Auto) 17 12-44 % Mean Corpuscular Hemoglobin 32 25-34 PG Mean Corpuscular Hemoglobin Concent 36 32-36 G/DL Mean Corpuscular Volume 89 80-99 FL Mean Platelet Volume 9.4 7.4-10.4 FL Monocytes # (Auto) 1.0 0.0-1.0 X 10^3 Monocytes (%) (Auto) 13 H 0-12 % Neutrophils # (Auto) 5.6 1.8-7.8 X 10^3 Neutrophils (%) (Auto) 69 42-75 % Platelet Count 292 130-400 10^3/uL Potassium Level 3.9 3.6-5.0 MMOL/L Red Blood Count 4.86 4.35-5.85 10^6/uL Red Cell Distribution Width 14.6 H 10.0-14.5 % Sodium Level 132 L 135-145 MMOL/L Total Bilirubin 2.0 H 0.1-1.0 MG/DL Total Protein 6.5 6.4-8.2 G/DL White Blood Count 8.0 4.3-11.0 10^3/uL My Orders Orders-BRANDI COLBERT MD Cbc With Automated Diff (09/24/16 15:03) Comprehensive Metabolic Panel (09/24/16 15:03) Ua Culture If Indicated (09/24/16 15:03) Saline Lock/Iv-Start (09/24/16 15:21) Promethazine Injection (Phenergan Injec (09/24/16 15:45) Ns Iv 1000 Ml (Sodium Chloride 0.9%) (09/24/16 15:45) Chest 1 View, Ap/Pa Only (09/24/16 15:38) Abdomen/Kub 1view (09/24/16 15:38) Medications Given in ED Current Medications Medications Dose Ordered Sig/Nohemy Route Start Time Stop Time Status Last Admin Dose Admin Promethazine HCl 25 mg ONCE ONCE IVP 09/24/16 15:45 09/24/16 15:46 DC 09/24/16 15:44 25 MG Vital Signs/I&O Vital Sign - Last 12Hours 09/24/16 14:50 Temp 98.6 Pulse 83 Resp 18 B/P 137/93 Blood Pressure Mean: 108 Departure Communication Progress Notes Discussed with Dr. Jesus at 1600. The patient will be admitted for hydration and pain management. 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 Referrals: AMBROSIO LILLY MD (PCP/Family) Primary Care Physician ODGERS,BRANDI K MD Sep 24, 2016 15:48
--- NOTE | 2016-09-24 16:37 | Diagnostic Imaging Report ---
INDICATION: Lung cancer with metastatic disease of the liver. Currently on chemotherapy. Unable to eat. Has full filling in abdomen all the Time. TECHNIQUE: Two supine views of the abdomen, 4:09 p.m. CORRELATION STUDY: None. FINDINGS: There are scattered gas-filled loops of bowel present. High degree obstruction does not appear to be present. However, there is suggestion of slight wall thickening about portions of the descending colon. No evidence for free intraperitoneal air on supine imaging. IMPRESSION: Scattered gas-filled loops of bowel are present in a nonobstructive pattern. There is, however, a question of wall thickening in the expected location of the descending colon, nonspecific. Dictated by: Dictated on workstation # [id number]
[2016-09-24 16:45] VITALS: BP 182/99
--- NOTE | 2016-09-24 16:55 | Diagnostic Imaging Report ---
INDICATION: Lung cancer with known metastasis to the liver. Unable to eat. Currently on chemotherapy. TECHNIQUE: Single view chest, 4:07 p.m. CORRELATION STUDY: 05/22/2016. FINDINGS: Right IJ Cpzvtx-I-[id number] catheter tip over the low SVC. The previously noted masslike density in the left hilum has significantly improved. Only slight fullness of the left hilum is present on followup. Very questionable nodular density in the right lung base. Heart size, mediastinum and vasculature are within normal limits. IMPRESSION: 1. When compared with prior chest radiograph of April 2016, left hilar mass has shown significant improvement. Very questionable nodular density in the right lung base. No infiltrate (however, it was noted on interval CT imaging of the chest that there are adverse changes of the appearance the chest. Therefore, if further assessment is desired, short-term followup repeat CT imaging would be recommended.) Dictated by: Dictated on workstation # [id number]
[2016-09-24] MEDS ORDERED: OXYC10TA7 PO (17:10)
[2016-09-24] MEDS ORDERED: APIX5TAB PO (17:10)
[2016-09-24 17:20] VITALS: BP 184/104
[2016-09-24] MEDS ORDERED: SCOPOLAMINE 1.5 MG (TRANSDERM-SCOP) PATCH TD ONE (17:30)
[2016-09-24] MEDS ORDERED: fentaNYL PATCH 25 MCG (DURAGESIC) TD SCH (17:30)
[2016-09-24] MEDS ORDERED: ONDANSETRON 4 MG/2 ML (SDV) Z0FRAN IVP PRN (17:30)
[2016-09-24] MEDS ORDERED: fentaNYL INJECTION 100 MCG/2 ML AMP IVP PRN (17:30)
[2016-09-24] MEDS ORDERED: fentaNYL PATCH 25 MCG (DURAGESIC) ONE (17:31)
[2016-09-24] MEDS ORDERED: METHYLNALTREXONE 12 MG/0.6 ML (RELISTOR) VIAL SQ ONE ×2 (17:33→21:15)
[2016-09-24] MEDS ORDERED: NS IV 1000 ML 1,000 ML IV SCH (17:35)
[2016-09-24] MEDS: NITROGLYCERIN 2% OINT 1 GM UNIT DOSE PACKET TOP SCH ×2 (17:44→23:41)
[2016-09-24] MEDS: METOCLOPRAMIDE INJ 10 MG/2 ML (REGLAN) IVP SCH ×2 (17:44→23:41)
[2016-09-24] MEDS ORDERED: METOCLOPRAMIDE INJ 10 MG/2 ML (REGLAN) IV PRN (17:45)
[2016-09-24] MEDS ORDERED: NALOXONE 0.4 MG/ML 1 ML (NARCAN) VIAL IV PRN (17:45)
[2016-09-24] MEDS ORDERED: ONDANSETRON 4 MG/2 ML (SDV) Z0FRAN IV PRN (17:45)
[2016-09-24] MEDS ORDERED: diphenhydrAMINE 50 MG/ML INJ (BENADRYL) IV PRN (17:45)
[2016-09-24] MEDS: HYDROmorphone PCA 0.2 MG/ML 30 ML (DILAUDID) IV PRN (18:22)
[2016-09-24] MEDS ORDERED: NON-FORMULARY MEDICATION 1 EA EA (Oxycodone HCl 10 MG) PO SCH (18:45)
[2016-09-24 20:00] VITALS: BP 131/62
[2016-09-24] MEDS: APIXABAN 5 MG (ELIQUIS) TABLET PO SCH (21:00)
[2016-09-24] MEDS ORDERED: CARBAMAZEPINE 400 MG PO SCH (21:00)
[2016-09-24] MEDS ORDERED: INSULIN GLARGINE HUM REC ANLOG 30 UNIT SQ SCH (21:00)
[2016-09-24] MEDS ORDERED: PROMETHAZINE INJ 25 MG/ML (PHENERGAN) AMP IV PRN (21:15)
[2016-09-25] VITALS: BP 117/55
[2016-09-25 04:00] VITALS: BP 135/68
[2016-09-25] MEDS: METOCLOPRAMIDE INJ 10 MG/2 ML (REGLAN) IVP SCH (05:26)
[2016-09-25] MEDS: NITROGLYCERIN 2% OINT 1 GM UNIT DOSE PACKET TOP SCH ×4 (05:31→23:45)
[2016-09-25] MEDS: NS IV 1000 ML 1,000 ML IV SCH ×2 (05:48→22:47)
[2016-09-25 08:00] VITALS: BP 157/84
[2016-09-25] MEDS: HYDROmorphone PCA 0.2 MG/ML 30 ML (DILAUDID) IV PRN ×2 (08:32→20:55)
[2016-09-25] MEDS: FLUoxetine HCL 20 MG (PROzac) CAP PO SCH (09:00)
[2016-09-25] MEDS: APIXABAN 5 MG (ELIQUIS) TABLET PO SCH (09:00)
[2016-09-25] MEDS ORDERED: FLUOXETINE HCL 20 MG PO SCH (09:00)
[2016-09-25] MEDS ORDERED: lisINopril 5 MG (PRINIVIL) TABLET PO SCH (09:00)
[2016-09-25] MEDS: SENNA W/DOCUSATE (SENOKOT S) TABLET PO SCH (09:00)
[2016-09-25] MEDS ORDERED: CATHETER FLUSH 10 ML SYR IV PRN (11:15)
[2016-09-25] MEDS: inSUlin DETERMIR 1 UNIT/0.01 ML (LEVEMIR) CHARGE PER UNIT SQ SCH ×2 (11:23→20:21)
[2016-09-25 12:00] VITALS: BP 155/85
--- NOTE | 2016-09-25 12:57 | History & Physical-Hospitalist ---
HPI History of Present Illness: HPI/Chief Complaint The patient's a 61-year-old white male known to me from an admission in late April. He has a small cell carcinoma of the lung. At that time it was nearly occluding his left pulmonary artery. Subsequent chemotherapy and radiation have improved that situation. He presented to the emergency room with a complaint of inability to eat, pain, and misery. He is been taking narcotics for his pain relief principally of his bony metastases. He had been taking MiraLAX previously but stopped it and now regrets this. He had also been taking morphine Contin and had stopped at about 5 days previously. He had some symptoms which seem to be that of withdrawal. He had had a CT scan for extended disease measurement on 08/25. I reviewed this and also noted that at that time despite having been 12 hours or more without eating he had a stomach full of food material and content throughout the bowel. He reports that he has been only able to take a small amount of fluid or chicken noodle soup and then feels full and may regurgitate. He was clearly dehydrated and constipated and was admitted for medication adjustment and measures to reduce his obstipation which may be narcotic induced Source: family Exam Limitations: no limitations Date Seen 09/25/16 Attending Physician Felicia Jesus Lisa A MD Referring Physician Date of Admission Sep 24, 2016 at 16:17 Home Medications & Allergies Home Medications Reviewed patient Home Medication Reconciliation Form Allergies Coded Allergies: No Known Drug Allergies (Unverified , 01/11/16) Past Jtqaoak-Tiwxhj-Wpyjpj Hx Patient Social History Alcohol Use: Denies Use Recreational Drug Use: No Smoking Status: Current Everyday Smoker Type Used: Cigarettes Physical Abuse Screen: No Sexual Abuse: No Recent Foreign Travel: No Contact w/other who traveled: No Recent Hopitalizations: No Recent Infectious Disease Expo: No Immunizations Up To Date Tetanus Booster (TDap): Less than 5yrs Date of Pneumonia Vaccine: December 25, 2012 Date of Influenza Vaccine: May 22, 2016 Seasonal Allergies Seasonal Allergies: Yes Surgeries HX Surgeries: Yes (INGUINAL HERNIA, LEFT SHOULDER FX, bronchoscopy 01/10/16) Surgeries: Abdominal, Orthopedic Respiratory Hx Respiratory Disorders: Yes (SMALL CELL LUNG CANCER) Cardiovascular Hx Cardiovascular Disorders: Yes Cardiac Disorders: Hypertension Neurological Hx Neurological Disorders: No Neurological Disorders: Seizure Disorder Reproductive System Hx Reproductive Disorders: No Genitourinary Hx Genitourinary Disorders: No Gastrointestinal Hx Gastrointestinal Disorders: Yes Gastrointestinal Disorders: Gastroesophageal Reflux Musculoskeletal Hx Musculoskeletal Disorders: No Endocrine Hx Endocrine Disorders: Yes Endocrine Disorders: Diabetes, Insulin dep HEENT HX ENT Disorders: No Loss of Vision: Denies Hearing Impairment: Denies Cancer Hx Cancer: Yes Cancer: Liver, Lung Psychosocial Hx Psychiatric Problems: No Behavioral Health Disorders: Depression Integumentary HX Skin/Integumentary Disorder: No Blood Transfusions Hx Blood Disorders: No Adverse Reaction to a Blood Tr: No Family Medical History Significant Family History: Cancer Family Hx: Diabetes mellitus 19 MOTHER, Onset:40's - 50 FH: COPD (chronic obstructive pulmonary disease) 19 FATHER, , Onset:60 years & older 19 MOTHER, Onset:60 years & older FH: stroke G8 SISTER, , Age:62, Onset:60 years & older Review of Systems Constitutional: see HPI EENTM: no symptoms reported Respiratory: dyspnea on exertion Cardiovascular: no symptoms reported Gastrointestinal: constipation loss of appetite nausea vomiting Genitourinary: decreased output Musculoskeletal: no symptoms reported Skin: no symptoms reported Psychiatric/Neurological: Depressed Physical Exam Physical Exam Vital Signs Vital Sign - Last 12Hours 09/24/16 09/24/16 14:50 16:39 Temp 98.6 Pulse 83 Resp 18 B/P 137/93 Pulse Ox 96 O2 Delivery Room Air Capillary Refill : Less Than 3 Seconds General Appearance: Mild Distress Eyes: Bilateral Eye Normal Inspection HEENT: Normal ENT Inspection Neck: Normal Inspection Respiratory: Decreased Breath Sounds (distant) Cardiovascular: Regular Rate, Rhythm No Edema No Gallop No JVD No Murmur Normal Peripheral Pulses Gastrointestinal: Other (the abdomen appeared distended. Bowel sounds were hypoactive. There is generalized tenderness to palpation.) Back: Normal Inspection No CVA Tenderness No Vertebral Tenderness Extremity: Normal Capillary Refill Normal Inspection Normal Range of Motion Non Tender No Calf Tenderness No Pedal Edema Neurologic/Psychiatric: Alert Oriented x3 No Motor/Sensory Deficits Normal Mood/Affect Skin: Normal Color Warm/Dry Lymphatic: No Adenopathy Results Results/Procedures Lab Laboratory Tests 09/24/16 15:17 Assessment/Plan Admission Diagnosis 1.small cell carcinoma lung with metastases. 2.chronic pain secondary to number 1. 3.dehydration. 4.suspect narcotic related constipation. Assessment and Plan Adjustment of medications for better pain relief and better ability to eat and stool Clinical Quality Measures DVT/VTE Risk/Contraindication: Risk Factor Score Per Nursin RFS Level Per Nursing on Admit: 4+=Very High BRANDI COLBERT MD Sep 25, 2016 12:56
[2016-09-25] MEDS: inSUlin ASPART (NovoLOG) 1 UNIT/0.01 ML (CHARGE PER UNIT) SC SCH ×2 (15:00→19:30)
--- NOTE | 2016-09-25 16:07 | Consultation ---
History of Present Illness History of Present Illness Patient Consulted On(aayush/time) 09/25/16 15:54 Date of Admission 09/24/16 History of Present Illness This is a 61 year old male who was seen with Dr. Cabral. Patient reports that in December 2015 he was diagnosed with small cell lung cancer and has had radiation treatment as well as ongoing chemotherapy. He reports that a CT scan in July 2016 showed liver metastasis and increasing size of lung masses. He reports that approx 1 week ago he started to feel ill with fatigue and loss of appetite. He reports that this progressed to episodes of Nausea and vomiting 5 days ago. He also reports epigastric fullness sensation and therefore has not felt like eating much. He denies any hematemesis as well as no blood or dark stools. He does report issues with constipation but reports that he has been on narcotic pain medication. He reports that he does have reflux and will have episodes of regurgitation. He did have a gallbladder U/S performed which he reports was negative other than 2 liver masses near his gallbladder. Patient reports that he gets full with small amounts of food or liquids. He reports today that he is feeling better and did have a BM yesterday as well today. Patient also says that he has RUQ pain but says that is the side he has the liver masses on. He denies any fever/chills. He is ambulating without difficulty. He reports that he continues to smoke 2-3 ppd. Allergies and Home Medications Allergies Coded Allergies: No Known Drug Allergies (Unverified , 01/11/16) Home Medications Apixaban 5 Mg Tablet 2.5 MG PO BID (Reported) takes 1/2 tab of 5 mg tabs BID Carbamazepine 400 Mg Tab.er.12h 400 MG PO BID (Reported) Fluoxetine HCl 20 Mg Tablet 20 MG PO DAILY (Reported) Insulin Aspart 100 Unit/1 Ml Susp SQ AC PRN PRN PER SLIDING SCALE (Reported) Insulin Glargine,Hum.rec.anlog 100 Unit/1 Ml Vial 30 UNIT SQ BID (Reported) Lisinopril 5 Mg Tablet 5 MG PO DAILY (Reported) Oxycodone HCl 10 Mg Tablet 10 MG PO Q6H (Reported) takes at 06,12,18,00 Past Xxknqrn-Euayca-Yfsbkw Hx Patient Social History Alcohol Use: Denies Use Recreational Drug Use: No Smoking Status: Current Everyday Smoker Type Used: Cigarettes Recent Foreign Travel: No Contact w/Someone Who Travel: No Recent Infectious Disease Expo: No Recent Hopitalizations: No Physical Abuse Screen: No Sexual Abuse: No Immunizations Up To Date Tetanus Booster (TDap): Less than 5yrs PED Vaccines UTD: Yes Date of Pneumonia Vaccine: December 25, 2012 Date of Influenza Vaccine: May 22, 2016 Seasonal Allergies Seasonal Allergies: Yes Surgeries HX Surgeries: Yes (INGUINAL HERNIA, LEFT SHOULDER FX, bronchoscopy 01/10/16) Surgeries: Abdominal, Orthopedic Respiratory Hx Respiratory Disorders: Yes (SMALL CELL LUNG CANCER) Respiratory Disorders: COPD Cardiovascular Hx Cardiac Disorders: Yes Cardiac Disorders: Hypertension Neurological Hx Neurological Disorders: No Neurological Disorders: Seizure Disorder Reproductive System Hx Reproductive Disorders: No Genitourinary Hx Genitourinary Disorders: No Gastrointestinal Hx Gastrointestinal Disorders: Yes Gastrointestinal Disorders: Gastroesophageal Reflux Musculoskeletal Hx Musculoskeletal Disorders: No Endocrine Hx Endocrine Disorders: Yes Endocrine Disorders: Diabetes, Insulin dep HEENT HX ENT Disorders: No Loss of Vision: Denies Hearing Impairment: Denies Cancer Hx Cancer: Yes Cancer: Liver, Lung Psychosocial Hx Psychiatric Problems: No Behavioral Health Disorders: Depression Integumentary HX Skin/Integumentary Disorder: No Blood Transfusions Hx Blood Disorders: No Adverse Reaction to a Blood Tr: No Family Medical History Significant Family History: Cancer Family Medial History: Diabetes mellitus 19 MOTHER, Onset:40's - 50 FH: COPD (chronic obstructive pulmonary disease) 19 FATHER, , Onset:60 years & older 19 MOTHER, Onset:60 years & older FH: stroke G8 SISTER, , Age:62, Onset:60 years & older Review of Systems-General Constitutional: No chills, No fever, other (Fatigue) EENTM: no symptoms reported Respiratory: no symptoms reported Cardiovascular: no symptoms reported Gastrointestinal: abdominal pain (RUQ) constipationNo hematemesis, heartburn loss of appetiteNo melena, nausea vomiting Genitourinary: no symptoms reported Musculoskeletal: no symptoms reported Skin: no symptoms reported Psychiatric/Neurological: No Symptoms Reported Physical Exam-General Problems Physical Exam Vital Signs Vital Sign - Last 12Hours 09/24/16 09/24/16 14:50 16:39 Temp 98.6 Pulse 83 Resp 18 B/P 137/93 Pulse Ox 96 O2 Delivery Room Air Capillary Refill : Less Than 3 Seconds General Appearance: WD/WN no apparent distress HEENT: PERRL/EOMI Neck: non-tender full range of motion supple Respiratory: no respiratory distress no accessory muscle use Cardiovascular: regular rate, rhythm Gastrointestinal: soft tenderness (RUQ) Back: normal inspection no CVA tenderness Extremities: normal range of motion normal inspection no pedal edema normal capillary refill Neurologic/Psychiatric: alert oriented x 3 Skin: normal color warm/dry Assessment/Plan Assessment/Plan Admission Diagnosis/Plan A 61 year old male with small cell lung cancer with liver metastasis, GERD, RUQ pain, N/V, constipation, Early Satiety. VSS. IV fluids. Pain and nausea medication. PUD prophylaxis. clear liquids. Hold anticoag. Will schedule for EGD with possible dilatation, possible PEG tube tomorrow. Clinical Quality Measures DVT/VTE Risk/Contraindication: Risk Factor Score Per Nursin RFS Level Per Nursing on Admit: 4+=Very High Copy Copies To 1: ANETA CABRAL MD Copies To 2: AMBROSIO LILLY MD, DUSTIN L APRN Sep 25, 2016 4:06 pm
[2016-09-25 16:30] VITALS: BP 158/86
[2016-09-25] MEDS: lisINopril 5 MG (PRINIVIL) TABLET PO SCH (18:30)
[2016-09-25] MEDS ORDERED: PATIENT MAY USE OWN MED,SINGLE MED PO SCH (18:30)
[2016-09-25 19:30] VITALS: BP 142/78
[2016-09-25] MEDS: PANTOPRAZOLE 40 MG/10 ML (PROTONIX) VIAL IV SCH (20:20)
[2016-09-25] MEDS: CARBAMAZEPINE 400 MG PO SCH (20:20)
[2016-09-26] VITALS: BP 157/81
[2016-09-26 04:00] VITALS: BP 130/82
[2016-09-26] MEDS: inSUlin ASPART (NovoLOG) 1 UNIT/0.01 ML (CHARGE PER UNIT) SC SCH ×4 (05:03→21:10)
[2016-09-26] MEDS: NITROGLYCERIN 2% OINT 1 GM UNIT DOSE PACKET TOP SCH ×4 (06:09→23:52)
[2016-09-26 08:00] VITALS: BP 156/87
[2016-09-26] MEDS: PANTOPRAZOLE 40 MG/10 ML (PROTONIX) VIAL IV SCH ×2 (08:40→21:10)
[2016-09-26] MEDS: NS IV 1000 ML 1,000 ML IV SCH (08:40)
[2016-09-26] MEDS ORDERED: PATIENT MAY USE OWN MED,SINGLE MED PO SCH ×2 (09:00)
[2016-09-26] MEDS: D5 NS 1000 ML IV SOLUTION 1,000 ML IV SCH ×2 (10:34→21:10)
[2016-09-26] MEDS: HYDROmorphone PCA 0.2 MG/ML 30 ML (DILAUDID) IV PRN ×2 (11:22→23:59)
[2016-09-26 12:00] VITALS: BP 178/88
--- NOTE | 2016-09-26 12:31 | Progress Note-Hospitalist ---
Standard Progress Note Progress Notes/Assess & Plan Date Seen 09/26/16 Diagnosis 1.small cell carcinoma lung with metastases. 2.chronic pain secondary to number 1. 3.dehydration. 4.suspect narcotic related constipation. Assess & Plan/Chief Complaint The patient seems to be in better spirits today. He has been fearful of eating to this point although he has been taking clear liquids. He is to have a upper endoscopy by Dr. Montes this afternoon. Hopefully this will clear up any issues about obstruction. He reports he is still passing gas but has had no stools. Physical exam: He is in good spirits. Lungs are distant but clear. CV showed a tachycardia with the rate in the 110 range. Abdomen was soft and no tympany was noted. Bowel sounds remain hypoactive. Impression: Small cell carcinoma lung with metastases 2.chronic pain secondary to number 1. 3.narcotic bowel versus extrinsic obstruction of the esophagus. 4.diabetes mellitus. Plan: EGD this afternoon. 2.hold insulin until cleared by Dr. Montes. Labs Laboratory Tests 09/24/16 15:17 BRANDI COLBERT MD Sep 26, 2016 12:31
--- NOTE | 2016-09-26 12:33 | Conscious Sedation/ASA ---
Conscious Sedation Pre-Proced Time Reviewed: 12:00 ASA Class: 3 Airway Mallampati Classification: (venetie ira appropriate class) I. II. III, IV Lungs Heart ASA score ASA 1: a normal healthy patient ASA 2: a patient with a mild systemic disease (mid diabetes, controlled hypertension, obesity ASA 3: a patient with a severe systemic disease that limits activity (angina , COPD, prior Myocardial infarction) ASA 4: a patient with an incapacitating disease that is a constant threat to life (CHF, renal failure) ASA 5: a moribund patient not expected to survive 24 hrs. (ruptured aneurysm) ASA 6: a declared brain patient whose organs are being harvested. For emergent operations, add the letter E after the classification Grade 2 Sedation Plan: Analgesia, Amnesia, Plan communicated to team members, Discussed options with patient/fam, Discussed risks with patient/fam Note The patient is an appropriate candidate to undergo the planned procedure, sedation, and anesthesia. The patient immediately re-assessed prior to indication. ANETA CABRAL MD Sep 26, 2016 12:33 pm
--- NOTE | 2016-09-26 12:33 | Progress Note-Pre Operative ---
Pre-Operative Progress Note H&P Reviewed The H&P was reviewed, patient examined and no changes noted. Date H&P Reviewed: Sep 26, 2016 Time H&P Reviewed: 12:00 Pre-Operative Diagnosis: dysphagia with hx metastatic lung cancer ANETA CABRAL MD Sep 26, 2016 12:33 pm
[2016-09-26] MEDS: MIDAZOLAM 10 MG/2 ML (VERSED) VIAL IV PRN ×2 (12:35→12:40)
[2016-09-26] MEDS ORDERED: MIDAZOLAM 2 MG/2 ML (VERSED) VIAL ONE ×3 (12:38)
--- NOTE | 2016-09-26 13:16 | Progress Note-Post Operative ---
Post-Operative Progess Note Pre-Operative Diagnosis dysphagia with hx metastatic lung cancer Post-Operative Diagnosis reflux esophagitis(class B-C), small-moderate HH(2.5cm), moderate gastritis. no tumors/obstruction. Post-Op Procedure Note Date of Procedure: Sep 26, 2016 Name of Procedure: EGD with bx Anesthesia Type CS Estimated blood loss (mL): minimal Specimen(s) collected GE jxn, antrum ANETA CABRAL MD Sep 26, 2016 1:16 pm
[2016-09-26] MEDS ORDERED: HURRICAINE EXT TUBE (BENZOCAINE) XX ONE (14:15)
[2016-09-26] MEDS: lisINopril 5 MG (PRINIVIL) TABLET PO SCH (14:17)
[2016-09-26] MEDS: CARBAMAZEPINE 400 MG PO SCH ×2 (14:17→21:14)
[2016-09-26] MEDS: FLUoxetine HCL 20 MG (PROzac) CAP PO SCH (14:26)
[2016-09-26] MEDS: SENNA W/DOCUSATE (SENOKOT S) TABLET PO SCH (14:26)
[2016-09-26 16:25] VITALS: BP 147/76
[2016-09-26] MEDS: SUCRALFATE 1 GM (CARAFATE) TAB PO SCH ×2 (16:38→21:09)
[2016-09-26] MEDS ORDERED: ACETAMINOPHEN 325 MG TABLET/CAPLET (TYLENOL) PO PRN (16:45)
[2016-09-26] MEDS ORDERED: FURO-125 PO (18:04)
[2016-09-26] MEDS ORDERED: FUROSEMIDE 20 MG (LASIX) TAB PO PRN (18:15)
[2016-09-26 19:30] VITALS: BP 142/82
[2016-09-26] MEDS: APIXABAN 5 MG (ELIQUIS) TABLET PO SCH (21:00)
[2016-09-26] MEDS: inSUlin DETERMIR 1 UNIT/0.01 ML (LEVEMIR) CHARGE PER UNIT SQ SCH (21:10)
[2016-09-27] VITALS: BP 105/60
[2016-09-27 04:00] VITALS: BP 146/71
[2016-09-27] MEDS: inSUlin ASPART (NovoLOG) 1 UNIT/0.01 ML (CHARGE PER UNIT) SC SCH ×2 (06:00→10:17)
[2016-09-27] MEDS: SUCRALFATE 1 GM (CARAFATE) TAB PO SCH ×2 (06:02→11:32)
[2016-09-27] MEDS: NITROGLYCERIN 2% OINT 1 GM UNIT DOSE PACKET TOP SCH (06:02)
[2016-09-27] MEDS: D5 NS 1000 ML IV SOLUTION 1,000 ML IV SCH (06:08)
[2016-09-27 08:00] VITALS: BP 141/85
[2016-09-27] MEDS: inSUlin DETERMIR 1 UNIT/0.01 ML (LEVEMIR) CHARGE PER UNIT SQ SCH (08:48)
[2016-09-27] MEDS: SENNA W/DOCUSATE (SENOKOT S) TABLET PO SCH (08:53)
[2016-09-27] MEDS: PANTOPRAZOLE 40 MG/10 ML (PROTONIX) VIAL IV SCH (08:53)
[2016-09-27] MEDS: APIXABAN 5 MG (ELIQUIS) TABLET PO SCH (08:54)
[2016-09-27] MEDS: CARBAMAZEPINE 400 MG PO SCH (08:55)
[2016-09-27] MEDS: lisINopril 5 MG (PRINIVIL) TABLET PO SCH (08:56)
[2016-09-27] MEDS: FLUoxetine HCL 20 MG (PROzac) CAP PO SCH (08:57)
[2016-09-27] MEDS ORDERED: METHYLNALTREXONE 12 MG/0.6 ML (RELISTOR) VIAL SQ SCH (09:00)
[2016-09-27] MEDS ORDERED: RELISTOR12 SQ (11:01)
[2016-09-27] MEDS ORDERED: FENT1PAT8 TD (11:01)
[2016-09-27] MEDS ORDERED: HEParin (CENTRAL IV FLUSH) 500 UNIT/5 ML SYR IV NR (11:40)
--- NOTE | 2016-09-27 12:01 | OPERATIVE REPORT ---
PROCEDURE PHYSICIAN: ANETA MONTES DATE OF PROCEDURE: 09/24/2016 ATTENDING PRIMARY CARE PHYSICIAN: Dr. Danitza Barnes. ADMITTING PHYSICIAN: Dr. Jesus. PREOPERATIVE DIAGNOSIS: Metastatic small cell lung cancer with dysphagia. POSTOPERATIVE DIAGNOSES: 1. Reflux esophagitis, between class B and C. 2. Small to moderate sized hiatal hernia, 2.5 cm in size. 3. Moderate severity gastritis. 4. The pylorus and duodenum appeared normal with no distal obstructions. PROCEDURE: EGD with biopsy. SURGEON: Dr. Montes. ANESTHESIA: Conscious sedation. ESTIMATED BLOOD LOSS: Minimal. FINDINGS: 1. Reflux esophagitis, between class B and C. 2. Small to moderate size hiatal hernia, approximately 2.5 cm in size. There were no ulcers or strictures throughout the esophagus, as well as no tumors. 3. Moderate severity gastritis. 4. The pylorus and duodenum appeared normal with no distal obstructions. DISPOSITION: The patient tolerated the procedure well. BRIEF HISTORY: Mr. Fabrice Noriega is a 61-year-old male who developed a cough, sputum production, as well as chest discomfort around December 2015. He was found to have a small cell lung cancer. He then underwent chemotherapy as well as radiation. He reports that he had initial responsive, however, this second round the chemotherapy he did not. Follow-up CT scan did show worsening disease of bilateral lung, as well as to the liver. He reports that he has had a long-standing history of smoking and does smoke 2 to 3 packs a day and continues to smoke. He does have a history of gastroesophageal reflux disease as well. She reports in the past several months he has had worsening dysphagia and states that he will take in a food bolus and will feel a sensation of early satiety, as well as epigastric and substernal pressure sensation which was then reduced over time. He does not report any episodes of sridhar nausea or vomiting as well as no hematemesis, no coffee-ground emesis. PROCEDURE: The patient was brought to the endoscopy suite, laid in left lateral decubitus position. After adequate IV pain and sedative medications and conscious sedation anesthesia, the mouthpiece was applied. The endoscope was placed in the mouth, visualizing the pharynx and hypopharyngeal region. Vocal cords, epiglottis and vallecula identified and appeared to be normal. The endoscope was then gently intubated into the esophageal opening and the esophagus insufflated. The endoscope was then advanced through the first, second, and 3rd portions of the esophagus. There was no extrinsic compressive type of symptoms for many mediastinal tumors, as well as no strictures or any obvious tumors. At the GE junction, the GE junction was intrathoracic consistent with a hiatal hernia. There was no distal esophageal stricture. There was a reflux esophagitis, between class B and C. A biopsy was taken with forceps and electrocautery with visualization of good hemostasis. The endoscope was then easily advanced in the stomach and endoscope retroflexed visualizing a hiatal hernia which was small to moderate in size and approximately 2.5 cm. Again, no strictures identified, as well as no tumors. There was moderate severity gastritis. There were no ulcers, polyps or any neoplasms identified. A biopsy was taken of the stomach antrum, with forceps and cautery with visualization of good hemostasis. The endoscope was then advanced through the pylorus and the first and second portions of duodenum which appeared normal with no distal obstructions. The endoscope was then slowly withdrawn while taking a second look and suctioning residual air with no additional findings. The patient tolerated well. We will have him continue with medical management with the necessary lifestyle and diet accommodation including smoking cessation as well as avoidance of caffeinated beverages, spicy, greasy and acidic foods. He also needs to take in small, more frequent meals, avoidance of eating at night, as well as head elevation while lying supine. There is a possibility that he has developed a motility disorder from his previous chemotherapy as well as a tumor within the mediastinum causing traction however and if his symptoms worsened then he may need an upper GI swallow study. In the meantime we will increase his Protonix to 40 mg b.i.d. as well as start Carafate 1 gram q.i.d. for the next 2 weeks then on a p.r.n. basis. Job ID: [id number] Dictated Date: 09/26/2016 13:11:00 Inspector Scales Date: 09/27/2016 11:48:44 / marco
[2016-09-27 12:10] VITALS: BP 141/85
--- NOTE | 2016-09-28 14:25 | Physician Query-General Query ---
Physician Query-General Query to Physician: Please give final diagnosis thank you PHYSICIAN RESPONSE: Based on the clinical findings in the record, please respond to the query above on this document as an addendum. Possible, probable, or questionable diagnosis can be coded for INPATIENTS ONLY. Physician Response: Physician Response Small cell carcinoma of the lung with multiple bony metastases. 2.chronic pain secondary to number 1. 3.opiate-induced bowel hypomotility and distention. 4.dehydration secondary to number 3 If you have questions please contact: Shop Welder: Ext: Thank you for your time and cooperation. Clinical Credit Department Manager/Shop Welder This is a permanent part of the medical record BRENNAN ADAIR Sep 28, 2016 14:25 BRANDI COLBERT MD Oct 18, 2016 11:46
--- NOTE | 2016-10-18 15:32 | Discharge Summary-Hospitalist ---
Diagnosis/Chief Complaint Date of Admission Sep 24, 2016 at 16:45 Date of Discharge Sep 27, 2016 at 12:10 Discharge Date: Sep 27, 2016 Admission Diagnosis 1.small cell carcinoma lung with metastases. 2.chronic pain secondary to number 1. 3.dehydration. 4.suspect narcotic related constipation. Discharge Diagnosis Adjustment of medications for better pain relief and better ability to eat and stool Reason Hospital Visit/Course The patient's a 61-year-old white male known to me from an admission in late April. He has a small cell carcinoma of the lung. At that time it was nearly occluding his left pulmonary artery. Subsequent chemotherapy and radiation have improved that situation. He presented to the emergency room with a complaint of inability to eat, pain, and misery. He is been taking narcotics for his pain relief principally of his bony metastases. He had been taking MiraLAX previously but stopped it and now regrets this. He had also been taking morphine Contin and had stopped at about 5 days previously. He had some symptoms which seem to be that of withdrawal. He had had a CT scan for extent of disease measurement on 08/25. I reviewed this and also noted that at that time despite having been 12 hours or more without eating he had a stomach full of food material and content throughout the bowel. He reports that he has been only able to take a small amount of fluid or chicken noodle soup and then feels full and may regurgitate. He was clearly dehydrated and constipated and was admitted for medication adjustment and measures to reduce his obstipation which may be narcotic induced The patient was seen in consultation by Dr. Montes of the surgery service. He was placed on Relistor hoping to improve his bowel performance. His pain medications were addressed. Dr. Montes performed upper endoscopy on 09/27 and found evidence of distal esophagitis and also of gastritis. The patient reported that he felt considerably better and was ready for a trial to return to his home. The only addition to his medication was that of the Relistor and a PPI. He was to follow-up with oncology as previously scheduled. Discharge Summary Discharge Physical Examination Allergies: Coded Allergies: No Known Drug Allergies (Unverified , 01/11/16) Discharge Home Medications: Active Scripts Active Promethazine Tablet (Promethazine HCl) 25 Mg Tablet 25 Mg PO Q6H PRN Zofran Odt (Ondansetron) 8 Mg Tab.rapdis 8 Mg SL Q6H PRN Fentanyl Patch 75MCG (Fentanyl) 1 Each Patch.td72 150 Mcg TOP Q72H 30 Days Potassium Chloride 20 Meq Tablet.er 20 Meq PO DAILY Lasix (Furosemide) 40 Mg Tablet 40 Mg PO DAILY Cardizem Cd (Diltiazem HCl) 300 Mg Cap.er.24h 300 Mg PO DAILY Reported Zofran (Ondansetron HCl) 4 Mg Tab 4 Mg PO Q4H PRN Oxycodone HCl 10 Mg Tablet 10 Mg PO 0000,0600,1200,1800 Carafate (Sucralfate) 1 Gm Tablet 1 Gm PO ACHS PRN Protonix (Pantoprazole Sodium) 40 Mg Tablet.dr 40 Mg PO DAILY Lactulose 10 Gm/15 Ml Solution 15-30 Ml PO DAILY PRN NEW MEDICATION, HAS NOT STARTED Eliquis (Apixaban) 5 Mg Tablet 2.5 Mg PO BID takes 1/2 tab of 5 mg tabs BID Carbamazepine ER (Carbamazepine) 400 Mg Tab.er.12h 400 Mg PO BID Fluoxetine HCl 20 Mg Tablet 20 Mg PO DAILY Lisinopril 5 Mg Tablet 5 Mg PO DAILY LAST FILLED 05-08-16 #90 Instructions to patient/family Please see electonic discharge instructions given to patient. Clinical Quality Measures DVT/VTE Risk/Contraindication: Risk Factor Score Per Nursin RFS Level Per Nursing on Admit: 4+=Very High BRANDI COLBERT MD Oct 18, 2016 15:32
== END 2016-09-27 12:10 | disposition home or self-care (01) | DRG 181 ==
LOC: EDUNIT# 14:46 → ER 14:48 → UNDOADMOB 16:17 → 4TH 16:17 → UNDOADMIN 16:45 → OBSVTOIN 16:45 → 4TH 16:45 → INTOOBSV 16:45 → UNDODISIN 09-27 12:10
PROVIDERS: ADMIT Internal Medicine; ATTEND Internal Medicine
PROC: 0DB Gastrointestinal System, Excision (ICD-10-PCS; principal; 2016-09-24)
PROC: 0DB64ZX Excision of Stomach, Percutaneous Endoscopic Approach, Diagnostic (ICD-10-PCS; 2016-09-24)
DX: C34.12 Malignant neoplasm of upper lobe, left bronchus or lung (principal); C79.51 Secondary malignant neoplasm of bone; C78.7 Secondary malignant neoplasm of liver and intrahepatic bile duct; G89.3 Neoplasm related pain (acute) (chronic); K59.03 Drug induced constipation; T40.605A Adverse effect of unspecified narcotics, initial encounter; E86.0 Dehydration; K21.0 Gastro-esophageal reflux disease with esophagitis; K44.9 Diaphragmatic hernia without obstruction or gangrene; K29.70 Gastritis, unspecified, without bleeding; J44.9 Chronic obstructive pulmonary disease, unspecified; I10 Essential (primary) hypertension; G40.909 Epilepsy, unspecified, not intractable, without status epilepticus; E11.9 Type 2 diabetes mellitus without complications; F17.210 Nicotine dependence, cigarettes, uncomplicated; Z79.4 Long term (current) use of insulin
CPT/HCPCS: 36415; 71010; 74000; 80053; 82962; 85025; 88305; 96361; 96374

== ENCOUNTER 2016-09-30 11:49 | Inpatient (IN) | payer OTHER ==
[~2016-09-30] VITALS: Ht 177.8 cm; Wt 82.3 kg
[~2016-09-30 11:49] MED LIST changes: +FENT1PAT8 TD; +FURO-125 PO; +OXYC10TA7 PO; +RELISTOR12 SQ
--- OUTSIDE RECORDS SUMMARY | 2016-09-30 11:53 | XMS REPORT | Continuity of Care Document ---
Author Author [facility] Organization [facility] Address Unknown Phone Unavailable Care Team Providers Care Implementation Specialist Name Role Phone AMBROSIO LILLY MD PCP Insurance Providers Payer Name Policy Number Subscriber Name Relationship [employer] [id number] Fabrice Lopez 19 Self / Same As Patient Advance Directives Directive Response Recorded Date/Time Advance Directives No 05/19/16 6:22pm Health Care Power of Social Sciences Chair No 05/19/16 6:22pm Resuscitation Status Full Code [...] - 99.5) 05/19/2016 6:22pm Temperature (Calculated Celsius) 36.00110 degrees C (36.4 - 37.5) 05/19/2016 6:22pm [...] 10.00 inches 05/19/2016 6:22pm Height (Calculated Centimeters) 177.129609 cm 05/19/2016 6:22pm Weight (Pounds) 200 pounds 05/19/2016 6:22pm Weight (Ounces) 0 oz 05/19/2016 6:22pm Weight (Calculated Grams) 21084.551 gm 05/19/2016 6:22pm Weight (Calculated Kilograms) 90.621278 kilograms 05/19/2016 6:22pm Calculated BMI 27.3 05/19/2016 [...] Date Attending Provider Departed Emergency Room [facility] 05/19/16 5:55pm 05/19 6:50pm AMBROSIO HANSEN DO Registered Recurring [facility] 05/17/16 10:08am ANAYA MANDEL Discharged Recurring [facility] 01/26/16 9:15am 11:59pm ANAYA MANDEL Recent Diagnosis
[2016-09-30] MEDS ORDERED: ONDANSETRON 4 MG/2 ML (SDV) Z0FRAN ONE (12:04)
[2016-09-30] MEDS ORDERED: NS IV 1000 ML 1,000 ML IV SCH (12:15)
[2016-09-30] MEDS ORDERED: ONDANSETRON 4 MG/2 ML (SDV) Z0FRAN IVP ONE (12:15)
--- NOTE | 2016-09-30 12:31 | Diagnostic Imaging Report ---
INDICATION: Generalized abdominal pain. COMPARISON: 09/24/2016. FINDINGS: Acute abdominal series demonstrates new atelectasis in the right base. Small effusion is noted. Underlying infiltrate not excluded. There is no pneumothorax. The bowel gas pattern is nondistended. There is no free air. The osseous structures are age-appropriate. No abnormal calcifications. IMPRESSION: 1. Small effusion atelectasis and likely infiltrate, right lung base. Followup recommended. 2. Nondistended bowel gas pattern without evidence of free air. Dictated by: Dictated on workstation # [id number]
--- NOTE | 2016-09-30 12:43 | ED Cough/URI ---
General Chief Complaint: Respiratory Problems Stated Complaint: SOA Nursing Triage Note: PT AMBULATED TO ROOM 5 CO OF SOA, PEDAL EDEMA, ABD PAIN CONSTIPATION. PT HAS LUNG CA. PT WAS RELEASED FROM HOSPITAL ON SUNDAY OF THIS WEEK Source: patient, family Exam Limitations: no limitations History of Present Illness Time seen by provider: 12:46 Initial Comments This 61-year-old white male presents with complaint of peripheral edema, shortness of breath and constipation that has been present for the last 3 days. Patient has a history of cancer of the lung. Patient was discharged from the hospital 4 days ago. The patient denies fever, chills, productive cough, hematemesis or black or tarry stools. The patient has had small stools over the last 3 days. However he feels constipated. Patient has had nausea and benign emesis. Allergies and Home Medications Allergies Coded Allergies: No Known Drug Allergies (Unverified , 01/11/16) Home Medications Apixaban 5 Mg Tablet 2.5 MG PO BID (Reported) takes 1/2 tab of 5 mg tabs BID Carbamazepine 400 Mg Tab.er.12h 400 MG PO BID (Reported) Fentanyl 1 Each Patch.td72 15Days 50 MCG TD Q72H Prescribed by: BRANDI COLBERT on 09/27/16 1101 Fluoxetine HCl 20 Mg Tablet 20 MG PO DAILY (Reported) Furosemide 20 Mg Tablet #1 20 MG PO PRN Prescribed by: DAGOBERTO CHONG on 09/26/16 1804 Insulin Aspart 100 Unit/1 Ml Susp SQ AC PRN PRN PER SLIDING SCALE (Reported) Lisinopril 5 Mg Tablet 5 MG PO DAILY (Reported) Methylnaltrexone 12 Mg/0.6 Ml Vial 15Days 12 MG SQ Q48H@09 Prescribed by: BRANDI COLBERT on 09/27/16 1101 Oxycodone HCl 10 Mg Tablet 10 MG PO Q6H (Reported) takes at 06,12,18,00 Constitutional: No chills, No fever, weakness EENTM: No ear pain, No hearing loss, No hoarseness Respiratory: cough short of breath Cardiovascular: No chest pain, No palpitations Gastrointestinal: abdominal painNo diarrhea, nausea vomiting Genitourinary: dysuria frequency Musculoskeletal: back pain joint pain Skin: rash Psychiatric/Neurological: No Symptoms Reported Hematologic/Lymphatic: See HPI Easy Bleeding Past Hwaenht-Xwesxd-Mzsmhr Hx Patient Social History Alcohol Use: Denies Use Recreational Drug Use: No Smoking Status: Current Everyday Smoker Type Used: Cigarettes Recent Foreign Travel: No Contact w/Someone Who Travel: No Recent Infectious Disease Expo: No Recent Hopitalizations: No Immunizations Up To Date Tetanus Booster (TDap): Less than 5yrs PED Vaccines UTD: Yes Date of Pneumonia Vaccine: December 25, 2012 Date of Influenza Vaccine: May 22, 2016 Seasonal Allergies Seasonal Allergies: Yes Surgeries HX Surgeries: Yes (INGUINAL HERNIA, LEFT SHOULDER FX, bronchoscopy 01/10/16) Surgeries: Abdominal, Orthopedic Respiratory Hx Respiratory Disorders: Yes (SMALL CELL LUNG CANCER) Respiratory Disorders: COPD Cardiovascular Hx Cardiac Disorders: Yes Cardiac Disorders: Hypertension Neurological Hx Neurological Disorders: No Neurological Disorders: Seizure Disorder Reproductive System Hx Reproductive Disorders: No Genitourinary Hx Genitourinary Disorders: No Gastrointestinal Hx Gastrointestinal Disorders: Yes Gastrointestinal Disorders: Gastroesophageal Reflux Musculoskeletal Hx Musculoskeletal Disorders: No Endocrine Hx Endocrine Disorders: Yes Endocrine Disorders: Diabetes, Insulin dep HEENT HX ENT Disorders: No Loss of Vision: Denies Hearing Impairment: Denies Cancer Hx Cancer: Yes Cancer: Liver, Lung Psychosocial Hx Psychiatric Problems: No Behavioral Health Disorders: Depression Integumentary HX Skin/Integumentary Disorder: No Blood Transfusions Hx Blood Disorders: No Adverse Reaction to a Blood Tr: No Family Medical History Significant Family History: Cancer Family Medial History: Diabetes mellitus 19 MOTHER, Onset:40's - 50 FH: COPD (chronic obstructive pulmonary disease) 19 FATHER, , Onset:60 years & older 19 MOTHER, Onset:60 years & older FH: stroke G8 SISTER, , Age:62, Onset:60 years & older Physical Exam Vital Signs Vital Sign - Last 12Hours 09/30/16 11:50 Temp 97.8 Pulse 107 Resp 18 B/P 144/108 Pulse Ox 96 O2 Delivery Room Air Capillary Refill : Less Than 3 Seconds General Appearance: cachetic moderate distress Eyes: Bilateral Eye Normal Inspection HEENT: normal ENT inspection Neck: supple normal inspection Respiratory: decreased breath sounds Cardiovascular: regular rate, rhythm no murmur Gastrointestinal: distended tenderness Extremities: normal range of motion non-tender Neurologic/Psychiatric: no motor/sensory deficits normal mood/affect oriented x 3 Skin: normal color warm/dry Progress/Results/Core Measures Results/Orders Lab Results Laboratory Tests Test 09/30/16 12:00 09/30/16 12:46 09/30/16 13:02 Range/Units B-Type Natriuretic Peptide 51.5 <100.0 PG/ML Basophils # (Auto) 0.0 0.0-0.1 10^3/uL Basophils (%) (Auto) 0 0-10 % Eosinophils # (Auto) 0.0 0.0-0.3 10^3/uL Eosinophils (%) (Auto) 1 0-10 % Hematocrit 43 40-54 % Hemoglobin 15.7 13.3-17.7 G/DL Lymphocytes # (Auto) 1.0 1.0-4.0 X 10^3 Lymphocytes (%) (Auto) 12 12-44 % Mean Corpuscular Hemoglobin 32 25-34 PG Mean Corpuscular Hemoglobin Concent 36 32-36 G/DL Mean Corpuscular Volume 89 80-99 FL Mean Platelet Volume 9.0 7.4-10.4 FL Monocytes # (Auto) 1.3 H 0.0-1.0 X 10^3 Monocytes (%) (Auto) 15 H 0-12 % Neutrophils # (Auto) 6.1 1.8-7.8 X 10^3 Neutrophils (%) (Auto) 73 42-75 % Platelet Count 325 130-400 10^3/uL Red Blood Count 4.89 4.35-5.85 10^6/uL Red Cell Distribution Width 13.8 10.0-14.5 % White Blood Count 8.4 4.3-11.0 10^3/uL Alanine Aminotransferase (ALT/SGPT) 34 0-55 U/L Albumin 3.3 3.2-4.5 G/DL Alkaline Phosphatase 430 H 40-136 U/L Anion Gap 16 H 5-14 MMOL/L Aspartate Amino Transf (AST/SGOT) 43 H 5-34 U/L BUN/Creatinine Ratio 11 Blood Urea Nitrogen 7 7-18 MG/DL Calcium Level 8.8 8.5-10.1 MG/DL Carbon Dioxide Level 26 21-32 MMOL/L Chloride Level 94 L 98-107 MMOL/L Creatinine 0.62 0.60-1.30 MG/DL Estimat Glomerular Filtration Rate > 60 Glucose Level 113 H 70-105 MG/DL Lipase 12 8-78 U/L Potassium Level 3.1 L 3.6-5.0 MMOL/L Sodium Level 136 135-145 MMOL/L Total Bilirubin 1.4 H 0.1-1.0 MG/DL Total Protein 6.5 6.4-8.2 G/DL D-Dimer 1.01 H 0.00-0.49 UG/ML INR Comment 0.8-1.4 Lactic Acid Level 1.3 0.5-2.0 MMOL/L Prothrombin Time > 100.0 *H 12.2-14.7 SEC My Orders Orders-MATT ROCHA MD Ondansetron Injection (Zofran Injectio (09/30/16 12:04) Acute Abd Series (09/30/16 12:06) Ua Culture If Indicated (09/30/16 12:06) Protime With Inr (09/30/16 12:06) BNP (09/30/16 12:06) Fibrin Degradation Products (09/30/16 12:06) Ondansetron Injection (Zofran Injectio (09/30/16 12:15) Ns Iv 1000 Ml (Sodium Chloride 0.9%) (09/30/16 12:15) Cbc With Automated Diff (09/30/16 12:41) Blood Culture (09/30/16 12:44) Lactic Acid Analyzer (09/30/16 12:44) Fentanyl Injection (Sublimaze Injection (09/30/16 13:00) Fentanyl Injection (Sublimaze Injection (09/30/16 12:49) Comprehensive Metabolic Panel (09/30/16 12:46) Lipase (09/30/16 12:46) Ceftriaxone Injection (Rocephin Injectio (09/30/16 15:30) Azithromycin 500 Mg Iv (1x Dos (09/30/16 15:30) Medications Given in ED Current Medications Medications Dose Ordered Sig/Nohemy Route Start Time Stop Time Status Last Admin Dose Admin Fentanyl Citrate 50 mcg ONCE ONCE IVP 09/30/16 13:00 09/30/16 13:01 DC 09/30/16 13:02 50 MCG Ondansetron HCl 8 mg ONCE ONCE IVP 09/30/16 12:15 09/30/16 12:16 DC 09/30/16 12:12 8 MG Vital Signs/I&O Vital Sign - Last 12Hours 09/30/16 11:50 Temp 97.8 Pulse 107 Resp 18 B/P 144/108 Pulse Ox 96 O2 Delivery Room Air Blood Pressure Mean: 120 Progress Note : Time: 15:23 Progress Note The patient had a right lower lobe infiltrate. His pro time was greater than 100 and his INR was greater than 15. Telephone consultation was undertaken with Dr. Crum who is kind enough to admit the patient. Departure Communication Time/Spoke to Admitting Phy: 15:[address] Crum. Impression Impression: Primary Impression: Pneumonia Qualified Code: J18.1 - Lobar pneumonia, unspecified organism Additional Impression: PT prolonged Disposition: ADMITTED INPATIENT Condition: Improved Decision to Admit Reason: Admit from ER (General) Decision to Admit/Date: Sep 30, 2016 Time/Decision to Admit Time: 15:25 Departure-Patient Inst. Referrals: AMBROSIO LILLY MD (PCP/Family) Primary Care Physician MATT ROCHA MD Sep 30, 2016 12:43
[2016-09-30] MEDS ORDERED: fentaNYL INJECTION 100 MCG/2 ML AMP ONE (12:49)
[2016-09-30 13:00] LABS: MEAN CORPUSCULAR VOLUME 89 FL (80-99)
[2016-09-30] MEDS ORDERED: fentaNYL INJECTION 100 MCG/2 ML AMP IVP ONE (13:00)
[2016-09-30 13:01] LABS: RED CELL DISTRIBUTION WIDTH 13.8 % (10.0-14.5)
[2016-09-30 13:02] LABS: BASOPHILS % (AUTO) 0 % (0-10)
[2016-09-30 13:04] LABS: EOSINOPHILS % (AUTO) 1 % (0-10)
[2016-09-30 13:18] LABS: WHITE BLOOD COUNT 8.4 10^3/uL (4.3-11.0)
[2016-09-30 13:19] LABS: RED BLOOD COUNT 4.89 10^6/uL (4.35-5.85)
[2016-09-30 13:22] LABS: MEAN CORPUSCULAR HEMOGLOBIN 32 PG (25-34); MEAN CORPUSCULAR HGB CONC 36 G/DL (32-36); PLATELET COUNT 325 10^3/uL (130-400)
[2016-09-30 13:23] LABS: LYMPHOCYTES % (AUTO) 12 % (12-44); MONOCYTES % (AUTO) 15 % (0-12); NEUTROPHILS % (AUTO) 73 % (42-75)
[2016-09-30 13:24] LABS: MONOCYTES # (AUTO) 1.3 X 10^3 (0.0-1.0); NEUTROPHILS # (AUTO) 6.1 X 10^3 (1.8-7.8)
[2016-09-30 13:36] LABS: PROTHROMBIN TIME PATIENT > 100.0 SEC (12.2-14.7)
[2016-09-30 13:45] LABS: ALANINE AMINOTRANSFERASE 34 U/L (0-55); ALBUMIN 3.3 G/DL (3.2-4.5); ANION GAP 16 MMOL/L (5-14); ASPARTATE AMINO TRANSFERASE 43 U/L (5-34); BILIRUBIN,TOTAL 1.4 MG/DL (0.1-1.0); BLOOD UREA NITROGEN 7 MG/DL (7-18); BUN/CREATININE RATIO 11; CALCIUM 8.8 MG/DL (8.5-10.1); CARBON DIOXIDE 26 MMOL/L (21-32); CHLORIDE 94 MMOL/L (98-107); CREATININE SERUM 0.62 MG/DL (0.60-1.30); GFR ESTIMATED > 60; GLUCOSE 113 MG/DL (70-105); POTASSIUM 3.1 MMOL/L (3.6-5.0); SODIUM 136 MMOL/L (135-145); TOTAL PROTEIN 6.5 G/DL (6.4-8.2)
[2016-09-30 14:01] LABS: LIPASE 12 U/L (8-78)
[2016-09-30] MEDS ORDERED: cefTRIAXone INJECTION 2,000 MG in NS (IVPB) 50 ML IV ONE (15:30)
[2016-09-30] MEDS ORDERED: AZITHROMYCIN IV ADD-VANTAGE 500 MG in SODIUM CHLORIDE (ADD-VANTAGE) 250 ML IV ONE (15:30)
[2016-09-30] MEDS ORDERED: NS (IVPB) 0 ML ONE (15:48)
[2016-09-30 16:15] VITALS: BP 176/80
[2016-09-30] MEDS: NS IV 1000 ML 1,000 ML IV SCH ×2 (16:30→20:18)
[2016-09-30] MEDS ORDERED: PANT40TA3 PO (17:06)
[2016-09-30] MEDS ORDERED: SUCR1TAB36 PO (17:09)
[2016-09-30] MEDS: AZITHROMYCIN IV ADD-VANTAGE 500 MG in SODIUM CHLORIDE (ADD-VANTAGE) 250 ML IV SCH (17:11)
[2016-09-30] MEDS ORDERED: LACT10SO PO (17:17)
[2016-09-30] MEDS ORDERED: ONDN4T PO (17:17)
[2016-09-30] MEDS: PSYLLIUM POWDER (METAMUCIL) 5.8 GM PACKET PO SCH ×2 (17:34→20:20)
[2016-09-30] MEDS ORDERED: fentaNYL PATCH 25 MCG (DURAGESIC) TD SCH (19:15)
[2016-09-30] MEDS ORDERED: NON-FORMULARY MEDICATION 1 EA EA (Oxycodone HCl 10 MG) PO SCH (19:15)
[2016-09-30 19:39] VITALS: BP 147/86
[2016-09-30] MEDS: SUCRALFATE 1 GM (CARAFATE) TAB PO SCH (20:18)
[2016-09-30] MEDS ORDERED: APIXABAN 5 MG (ELIQUIS) TABLET PO SCH (21:00)
[2016-09-30] MEDS: inSUlin (REGULAR) HUMAN 1 UNIT/0.01 ML (CHARGE PER UNIT) SC SCH (21:00)
[2016-09-30] MEDS ORDERED: CARBAMAZEPINE 400 MG PO SCH (21:00)
[2016-09-30] MEDS: carBAMazepine 200 MG (TEGretol) TAB PO SCH (21:56)
[2016-09-30 23:30] VITALS: BP 171/94
[2016-10-01] MEDS ORDERED: NON-FORMULARY MEDICATION 1 EA EA (Oxycodone HCl 10 MG) PO SCH
[2016-10-01 04:00] VITALS: BP 147/85
[2016-10-01] MEDS: NS IV 1000 ML 1,000 ML IV SCH ×2 (05:32→16:18)
[2016-10-01 05:41] LABS: BASOPHILS % (AUTO) 0 % (0-10); EOSINOPHILS % (AUTO) 1 % (0-10); LYMPHOCYTES # (AUTO) 1.2 X 10^3 (1.0-4.0); LYMPHOCYTES % (AUTO) 17 % (12-44); MEAN CORPUSCULAR HEMOGLOBIN 31 PG (25-34); MEAN CORPUSCULAR HGB CONC 35 G/DL (32-36); MEAN CORPUSCULAR VOLUME 89 FL (80-99); MEAN PLATELET VOLUME 8.8 FL (7.4-10.4); MONOCYTES # (AUTO) 1.2 X 10^3 (0.0-1.0); MONOCYTES % (AUTO) 18 % (0-12); NEUTROPHILS # (AUTO) 4.5 X 10^3 (1.8-7.8); NEUTROPHILS % (AUTO) 65 % (42-75); PLATELET COUNT 293 10^3/uL (130-400); RED BLOOD COUNT 4.54 10^6/uL (4.35-5.85)
[2016-10-01 05:53] LABS: PROTHROMBIN TIME PATIENT 12.6 SEC (12.2-14.7)
[2016-10-01 06:00] LABS: ALANINE AMINOTRANSFERASE 33 U/L (0-55); ALBUMIN 3.1 G/DL (3.2-4.5); ANION GAP 11 MMOL/L (5-14); ASPARTATE AMINO TRANSFERASE 43 U/L (5-34); BILIRUBIN,TOTAL 1.3 MG/DL (0.1-1.0); BLOOD UREA NITROGEN 5 MG/DL (7-18); BUN/CREATININE RATIO 8; CALCIUM 8.5 MG/DL (8.5-10.1); CARBON DIOXIDE 28 MMOL/L (21-32); CHLORIDE 97 MMOL/L (98-107); CREATININE SERUM 0.61 MG/DL (0.60-1.30); GFR ESTIMATED > 60; GLUCOSE 78 MG/DL (70-105); SODIUM 136 MMOL/L (135-145)
[2016-10-01] MEDS: inSUlin (REGULAR) HUMAN 1 UNIT/0.01 ML (CHARGE PER UNIT) SC SCH ×4 (06:00→22:02)
--- NOTE | 2016-10-01 07:37 | Diagnostic Imaging Report ---
CLINICAL INDICATION: Followup pneumonia. Exam: Chest x-ray PA and lateral views. Comparisons: Chest x-ray dated 09/24/2016. Findings: There is interval decreased conspicuity of the previously seen nodular area in the right lung base. Stable appearance of the bilateral hilar regions with no developing mass like changes seen. There is interval development of mild atelectasis versus infiltrate in the lateral right lung base. Remainder of the lungs are clear. There is no pleural effusion or pneumothorax. Pulmonary vasculature and cardiac silhouette is within normal limits. Again seen [id number] overlying right chest with tip in the distal superior vena cava region. There are small degenerative spurs involving the thoracic spine. IMPRESSION: 1: There is interval development of a small area of atelectasis versus infiltrate in the lateral right lung base. 2: Decreased conspicuity involving the nodular area overlying the right lung base. 3: The remainder of this exam shows no significant interval change compared to the prior study of comparison. Dictated by: Dictated on workstation # [id number]
[2016-10-01 08:00] VITALS: BP 171/85
[2016-10-01] MEDS: fentaNYL INJECTION 100 MCG/2 ML AMP IVP PRN ×6 (08:18→23:36)
[2016-10-01] MEDS: cefTRIAXone 1 GM/NS 50 ML IVPB IV SCH ×2 (09:42)
[2016-10-01] MEDS: PSYLLIUM POWDER (METAMUCIL) 5.8 GM PACKET PO SCH (09:42)
[2016-10-01] MEDS: PANTOPRAZOLE 40 MG (PROTONIX) TAB PO SCH (09:42)
[2016-10-01] MEDS: SUCRALFATE 1 GM (CARAFATE) TAB PO SCH ×4 (09:42→22:02)
[2016-10-01] MEDS: lisINopril 5 MG (PRINIVIL) TABLET PO SCH (09:43)
[2016-10-01] MEDS: carBAMazepine 200 MG (TEGretol) TAB PO SCH ×4 (09:43→21:59)
[2016-10-01] MEDS: BISACODYL 10 MG SUPP (DULCOLAX) PR SCH (09:43)
[2016-10-01] MEDS ORDERED: IOHEXOL 350 MG/ML 100 ML (OMNIPAQUE 350) VIAL IV ONE (11:30)
[2016-10-01] MEDS ORDERED: NS 100 ML (IVPB) BAG IV ONE (11:30)
[2016-10-01 12:00] VITALS: BP 157/90
[2016-10-01] MEDS: NYSTATIN ORAL SUSP 5 ML UDC PO SCH ×2 (12:20→16:29)
--- NOTE | 2016-10-01 12:44 | Diagnostic Imaging Report ---
CLINICAL INDICATION: Patient complains of abdominal pain and nausea. Patient has history of small cell lung cancer stage IV. EXAM: CT scan of the chest, abdomen, and pelvis performed without and with 100 cc of Omnipaque 350 IV contrast. Portal venous phases were obtained and delayed phases. Coronal reformatted images were created. COMPARISON: CT scan of the chest, abdomen, and pelvis dated 08/25/2016. FINDINGS: CHEST: There is interval development of a moderate sized right pleural effusion and small left pleural effusion. Emphysematous lung disease is seen. There is interval increased size of the spiculated nodule in the medial left lung apex which currently measures 1.9 cm x 3.0 cm compared to the prior study measured at 1.5 cm x 2.6 cm. Relatively stable size spiculated nodule in the superior left perihilar/left upper lobe region which currently measures 2.7 cm x 1.5 cm and is not significantly changed. Stable nodular thickening involving the anterior aspect of the left upper lobe with adjacent parenchymal stranding. There is interval development of small parenchymal bands involving the right lung base likely related to atelectasis. There is no gross nodularity involving the pleural surface or within the pleural effusion. There is interval progression of markedly enlarged lower neck, mediastinum, and bilateral hilar lymph nodes. Marker lymph node in the low left neck just posterior to the left thyroid gland currently measures 1.5 cm x 2.1 cm compared to the prior study measured at 1.2 cm x 1.3 cm. This lesion is measured on series 3, image 5. Other marker enlarged lymph node is seen between the left common carotid artery and left subclavian artery just above the aortic arch seen on series 3, image 15. This lymph node currently measures 2.3 cm x 3.4 cm compared to the prior study measured at 1.2 cm x 1.5 cm. Another marker enlarged lymph node is seen in the precarinal region which currently measures 2.5 cm x 4.1 cm compared to the prior study measured at 2.5 cm x 3.1 cm. Again, all the other mediastinum and paraesophageal lymph nodes have also increased in size. There is interval increased size of the retrocrural lymph node which is just right of the aorta which currently measures 2.5 cm x 3.0 cm compared to the prior study measured at 2.3 cm x 2.3 cm and is seen on series 3, image 52. There are degenerative spurs involving the thoracic spine. There is no gross bony destructive changes seen. The aortic arch and pulmonary arteries are patent, as visualized. Thyroid gland is unremarkable. There is no significant axillary lymphadenopathy. Hxkndm-z-[id number] seen overlying the right chest with tip in the distal superior vena cava. ABDOMEN AND PELVIS: There is interval development of diffuse and conglomerative lymphadenopathy seen adjacent to the celiac artery, SMA, and in the right lexus hepatis region. A marker lymph node is seen just anterior to the bifurcation of the celiac artery seen on series 3, image 64 which currently measures 4.3 cm x 5.1 cm compared to the prior study measured at 3.0 cm x 3.8 cm. There is also enlarged periaortic conglomerative lymph nodes in the retrocrural region and periaortic region of the upper abdomen. There is interval increased size of the multiple metastatic masses throughout the liver. The largest marker lesion is seen in the inferior tip of the right lobe of the liver and currently measures 5.6 cm x 4.9 cm compared to the prior study measured at 4.2 cm x 4.2 cm. The remainder of the abdomen and pelvis has not significantly changed in the interim. 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 The spleen, pancreas, and adrenal glands have not significantly changed. Stable thickening of the left adrenal gland. Both kidneys are unremarkable with no hydronephrosis or mass seen. Gallbladder demonstrates stable gallbladder wall thickening, but is partially fluid-filled. There is no evidence of intestinal obstruction. The bladder is fluid distended with no gross abnormalities seen. There is no intra-abdominal free air or free fluid. The extraabdominal and extrapelvic soft tissue structures are stable with no significant interval abnormality. Stable fat-containing left inguinal hernia. IMPRESSION: 1: Overall, there is interval progression of diffuse metastatic disease involving the chest and upper abdomen with metastasis to the liver and diffuse conglomerative lymphadenopathy. This is described in detail above. 2: There is interval development of a moderate size right pleural effusion and small left pleural effusion. 3: There is increased size of the left lung apex spiculated nodule. 4. There is stable sized superior left perihilar/left upper lobe spiculated nodule. 5: Stable gallbladder wall thickening. The gallbladder is partially fluid distended. 6: The remainder of this exam shows no significant interval change compared to the prior study of comparison. Dictated by: Dictated on workstation # [id number]
[2016-10-01 16:00] VITALS: BP 186/93
[2016-10-01] MEDS: AZITHROMYCIN IV ADD-VANTAGE 500 MG in SODIUM CHLORIDE (ADD-VANTAGE) 250 ML IV SCH (16:28)
[2016-10-01 20:00] VITALS: BP 174/95
[2016-10-01] MEDS ORDERED: APIXABAN 5 MG (ELIQUIS) TABLET PO SCH (21:00)
[2016-10-01] MEDS: APIXABAN 2.5 MG (ELIQUIS) TABLET PO SCH (22:40)
[2016-10-02] VITALS (7 sets, daily range): BP systolic 130–170; BP diastolic 76–103
[2016-10-02] MEDS: fentaNYL INJECTION 100 MCG/2 ML AMP IVP PRN ×8 (03:05→23:57)
[2016-10-02] MEDS: inSUlin (REGULAR) HUMAN 1 UNIT/0.01 ML (CHARGE PER UNIT) SC SCH ×4 (05:22→21:51)
[2016-10-02] MEDS: NS IV 1000 ML 1,000 ML IV SCH ×2 (05:22→15:45)
[2016-10-02] MEDS: NYSTATIN ORAL SUSP 5 ML UDC PO SCH ×5 (05:22→23:56)
[2016-10-02 05:54] LABS: BASOPHILS % (AUTO) 0 % (0-10); EOSINOPHILS % (AUTO) 1 % (0-10); LYMPHOCYTES # (AUTO) 1.2 X 10^3 (1.0-4.0); LYMPHOCYTES % (AUTO) 14 % (12-44); MEAN CORPUSCULAR HEMOGLOBIN 31 PG (25-34); MEAN CORPUSCULAR HGB CONC 35 G/DL (32-36); MEAN CORPUSCULAR VOLUME 89 FL (80-99); MEAN PLATELET VOLUME 8.9 FL (7.4-10.4); MONOCYTES # (AUTO) 1.3 X 10^3 (0.0-1.0); MONOCYTES % (AUTO) 16 % (0-12); NEUTROPHILS # (AUTO) 5.8 X 10^3 (1.8-7.8); NEUTROPHILS % (AUTO) 69 % (42-75); PLATELET COUNT 296 10^3/uL (130-400); RED BLOOD COUNT 4.65 10^6/uL (4.35-5.85); WHITE BLOOD COUNT 8.4 10^3/uL (4.3-11.0)
[2016-10-02 06:13] LABS: ALANINE AMINOTRANSFERASE 31 U/L (0-55); ALBUMIN 3.2 G/DL (3.2-4.5); ANION GAP 11 MMOL/L (5-14); ASPARTATE AMINO TRANSFERASE 38 U/L (5-34); BILIRUBIN,TOTAL 1.3 MG/DL (0.1-1.0); BLOOD UREA NITROGEN 5 MG/DL (7-18); BUN/CREATININE RATIO 8; CALCIUM 8.5 MG/DL (8.5-10.1); CARBON DIOXIDE 27 MMOL/L (21-32); CHLORIDE 97 MMOL/L (98-107); CREATININE SERUM 0.66 MG/DL (0.60-1.30); GFR ESTIMATED > 60; GLUCOSE 191 MG/DL (70-105); POTASSIUM 3.3 MMOL/L (3.6-5.0); SODIUM 135 MMOL/L (135-145); TOTAL PROTEIN 6.3 G/DL (6.4-8.2)
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
[2016-10-02] MEDS: BISACODYL 10 MG SUPP (DULCOLAX) PR SCH (09:00)
[2016-10-02] MEDS: cefTRIAXone 1 GM/NS 50 ML IVPB IV SCH ×2 (09:03)
[2016-10-02] MEDS: APIXABAN 2.5 MG (ELIQUIS) TABLET PO SCH ×2 (09:05→21:51)
[2016-10-02] MEDS: PANTOPRAZOLE 40 MG (PROTONIX) TAB PO SCH (09:05)
[2016-10-02] MEDS: lisINopril 5 MG (PRINIVIL) TABLET PO SCH (09:05)
[2016-10-02] MEDS: carBAMazepine 200 MG (TEGretol) TAB PO SCH ×4 (09:05→21:51)
[2016-10-02] MEDS: SUCRALFATE 1 GM (CARAFATE) TAB PO SCH ×5 (09:05→21:51)
[2016-10-02] MEDS: PSYLLIUM POWDER (METAMUCIL) 5.8 GM PACKET PO SCH (10:06)
[2016-10-02] MEDS ORDERED: OXYC10TA7 PO (11:58)
[2016-10-02] MEDS ORDERED: PANT40TA2 PO (11:58)
[2016-10-02] MEDS ORDERED: SUCR1TAB36 PO (11:58)
[2016-10-02] MEDS ORDERED: LACT10SO PO (11:58)
[2016-10-02] MEDS ORDERED: ONDN4T PO (11:58)
[2016-10-02] MEDS ORDERED: FENT1PAT9 TD (11:58)
[2016-10-02] MEDS: AZITHROMYCIN IV ADD-VANTAGE 500 MG in SODIUM CHLORIDE (ADD-VANTAGE) 250 ML IV SCH (15:45)
--- NOTE | 2016-10-02 16:22 | Progress Note-Standard ---
Standard Progress Note Progress Notes/Assess & Plan Progress/Assessment & Plan 61-year-old male with metastatic small cell lung cancer and on outpatient palliative chemotherapy, admitted with low-grade fever and new lung infiltrate. Patient has also been complaining of increased abdominal discomfort. He is on broad-spectrum antibiotics with azithromycin and cefepime day # 2. No temperature spikes. Continues to have abdominal pain which requires fentanyl 25 g every 3 hours. Today patient complained that the effect of the pain medicine is not lasting 3 hours and he is in pain before the next dose is due. He had a bowel movement today and ate better than before. Patient had restaging CT scans of the chest, abdomen and pelvis yesterday which showed evidence of progressive disease in lungs, liver and upper abdominal lymphadenopathy. I reviewed this data with the patient and his . I'll stop chemotherapy with topotecan. After another few days of IV antibiotics, I' ll discharge the patient home when he is feeling better. I'll plan on starting a new line of chemotherapy with Irinotecan starting early next week. I also discussed the option of no active treatment with best supportive care but patient was not ready for this yet. Today I will change the fentanyl to 25 g every 2 hours as needed for pain control. If this is controlling the pain, I will change the dose of fentanyl patch to 100 g per hour starting tomorrow. ANAYA MANDEL Oct 02, 2016 16:22
[2016-10-03] MEDS: fentaNYL INJECTION 100 MCG/2 ML AMP IVP PRN ×10 (01:58→22:31)
[2016-10-03 03:41] LABS: BILIRUBIN,URINE NEGATIVE (NEGATIVE); KETONES,URINE NEGATIVE (NEGATIVE); LEUKOCYTE ESTERASE ,URINE NEGATIVE (NEGATIVE); NITRITE,URINE NEGATIVE (NEGATIVE); PH,URINE 7 (5-9); PROTEIN,URINE 3+ (NEGATIVE); UROBILINOGEN,URINE NORMAL (NORMAL)
[2016-10-03 03:48] LABS: SQUAMOUS EPITHELIAL CELL,UR RARE /HPF
[2016-10-03] MEDS: NS IV 1000 ML 1,000 ML IV SCH ×2 (03:52→14:39)
[2016-10-03 04:00] VITALS: BP 165/90
[2016-10-03] MEDS: inSUlin (REGULAR) HUMAN 1 UNIT/0.01 ML (CHARGE PER UNIT) SC SCH ×4 (06:00→22:31)
[2016-10-03] MEDS: NYSTATIN ORAL SUSP 5 ML UDC PO SCH ×3 (06:04→18:02)
[2016-10-03 08:00] VITALS: BP 185/95
[2016-10-03] MEDS: cefTRIAXone 1 GM/NS 50 ML IVPB IV SCH ×2 (08:50)
[2016-10-03] MEDS: carBAMazepine 200 MG (TEGretol) TAB PO SCH ×4 (08:50→20:25)
[2016-10-03] MEDS: PANTOPRAZOLE 40 MG (PROTONIX) TAB PO SCH (08:51)
[2016-10-03] MEDS: SUCRALFATE 1 GM (CARAFATE) TAB PO SCH ×4 (08:51→20:25)
[2016-10-03] MEDS: APIXABAN 2.5 MG (ELIQUIS) TABLET PO SCH ×2 (08:51→20:25)
[2016-10-03] MEDS: lisINopril 5 MG (PRINIVIL) TABLET PO SCH (08:51)
[2016-10-03] MEDS: BISACODYL 10 MG SUPP (DULCOLAX) PR SCH (09:00)
[2016-10-03] MEDS: PSYLLIUM POWDER (METAMUCIL) 5.8 GM PACKET PO SCH (09:00)
[2016-10-03] MEDS ORDERED: FENTANYL PATCH REMOVAL TP SCH (11:29)
[2016-10-03] MEDS ORDERED: fentaNYL PATCH 25 MCG (DURAGESIC) TD SCH (11:30)
[2016-10-03] MEDS ORDERED: fentaNYL INJECTION 100 MCG/2 ML AMP IVP PRN (11:30)
[2016-10-03] MEDS ORDERED: fentaNYL PATCH 100 MCG (DURAGESIC) TOP SCH (11:30)
[2016-10-03 12:00] VITALS: BP 168/89
[2016-10-03] MEDS ORDERED: RT-ALBUTEROL/IPRATROPIUM 3 ML (DUONEB) VIAL INH ONE (12:15)
--- NOTE | 2016-10-03 16:05 | Progress Note-Standard ---
Standard Progress Note Progress Notes/Assess & Plan Progress/Assessment & Plan 61-year-old male with metastatic small cell lung cancer and on outpatient palliative chemotherapy, admitted with low-grade fever and new lung infiltrate. Patient has also been complaining of increased abdominal discomfort. He is on broad-spectrum antibiotics with azithromycin and cefepime day # 3. No temperature spikes. increased pain today and required fentanyl 50 g IV bolus to control this. I have increased the fentanyl transdermal patch to 100 mcg/h and he is feeling better this afternoon. He is still unable to lie down because of shortness of breath and pain. I will add in nebulizer treatments with bronchodilators as it helped him earlier today. I will repeat lab work and chest x-ray tomorrow morning and decide on further course. Continue IV antibiotics. I'll plan on starting a new line of chemotherapy with Irinotecan starting early next week. I also discussed the option of no active treatment with best supportive care but patient was not ready for this yet. ANAYA MANDEL Oct 03, 2016 16:05
[2016-10-03 16:14] VITALS: BP 159/92
[2016-10-03] MEDS: AZITHROMYCIN IV ADD-VANTAGE 500 MG in SODIUM CHLORIDE (ADD-VANTAGE) 250 ML IV SCH (16:19)
[2016-10-03 17:20] VITALS: BP 159/92
[2016-10-03 20:00] VITALS: BP 178/85
[2016-10-03] MEDS: RT-ALBUTEROL/IPRATROPIUM 3 ML (DUONEB) VIAL INH SCH (21:09)
[2016-10-04] VITALS: BP 166/88
[2016-10-04] MEDS: fentaNYL INJECTION 100 MCG/2 ML AMP IVP PRN ×10 (00:31→21:56)
[2016-10-04] MEDS: NYSTATIN ORAL SUSP 5 ML UDC PO SCH ×4 (00:31→18:44)
[2016-10-04] MEDS: NS IV 1000 ML 1,000 ML IV SCH (02:26)
[2016-10-04 04:00] VITALS: BP 148/86
[2016-10-04 07:05] LABS: BASOPHILS % (AUTO) 0 % (0-10); EOSINOPHILS % (AUTO) 0 % (0-10); LYMPHOCYTES % (AUTO) 14 % (12-44); MEAN CORPUSCULAR HEMOGLOBIN 31 PG (25-34); MEAN CORPUSCULAR HGB CONC 35 G/DL (32-36); MEAN CORPUSCULAR VOLUME 89 FL (80-99); MEAN PLATELET VOLUME 9.1 FL (7.4-10.4); MONOCYTES # (AUTO) 1.2 X 10^3 (0.0-1.0); MONOCYTES % (AUTO) 17 % (0-12); NEUTROPHILS # (AUTO) 4.9 X 10^3 (1.8-7.8); NEUTROPHILS % (AUTO) 69 % (42-75); PLATELET COUNT 229 10^3/uL (130-400); RED BLOOD COUNT 4.28 10^6/uL (4.35-5.85); WHITE BLOOD COUNT 7.1 10^3/uL (4.3-11.0)
[2016-10-04 07:32] LABS: ALANINE AMINOTRANSFERASE 26 U/L (0-55); ALBUMIN 2.8 G/DL (3.2-4.5); ANION GAP 11 MMOL/L (5-14); ASPARTATE AMINO TRANSFERASE 29 U/L (5-34); BLOOD UREA NITROGEN 6 MG/DL (7-18); BUN/CREATININE RATIO 10; CALCIUM 7.7 MG/DL (8.5-10.1); CARBON DIOXIDE 22 MMOL/L (21-32); CHLORIDE 103 MMOL/L (98-107); GFR ESTIMATED > 60; GLUCOSE 239 MG/DL (70-105); POTASSIUM 3.3 MMOL/L (3.6-5.0); SODIUM 136 MMOL/L (135-145); TOTAL PROTEIN 5.6 G/DL (6.4-8.2)
[2016-10-04] MEDS: inSUlin (REGULAR) HUMAN 1 UNIT/0.01 ML (CHARGE PER UNIT) SC SCH ×4 (07:49→21:57)
[2016-10-04 08:15] VITALS: BP 160/87
[2016-10-04] MEDS: RT-ALBUTEROL/IPRATROPIUM 3 ML (DUONEB) VIAL INH SCH ×3 (08:59→19:36)
[2016-10-04] MEDS: BISACODYL 10 MG SUPP (DULCOLAX) PR SCH (09:00)
[2016-10-04] MEDS: PSYLLIUM POWDER (METAMUCIL) 5.8 GM PACKET PO SCH (09:00)
[2016-10-04] MEDS: cefTRIAXone 1 GM/NS 50 ML IVPB IV SCH ×2 (09:14)
[2016-10-04] MEDS: APIXABAN 2.5 MG (ELIQUIS) TABLET PO SCH ×2 (09:15→21:57)
[2016-10-04] MEDS: carBAMazepine 200 MG (TEGretol) TAB PO SCH ×4 (09:15→21:57)
[2016-10-04] MEDS: SUCRALFATE 1 GM (CARAFATE) TAB PO SCH ×4 (09:15→21:57)
[2016-10-04] MEDS: PANTOPRAZOLE 40 MG (PROTONIX) TAB PO SCH (09:15)
[2016-10-04] MEDS: lisINopril 5 MG (PRINIVIL) TABLET PO SCH (09:15)
--- NOTE | 2016-10-04 09:43 | Diagnostic Imaging Report ---
EXAMINATION: PA and lateral views of the chest. COMPARISON: 10/01/2016. FINDINGS: There is mild right basilar infiltrate or atelectasis without significant change from the prior exam. There is a small right pleural effusion. A medial left upper lobe lung mass is seen. This is unchanged also from the previous study. The heart size is normal. No pneumothorax. IMPRESSION: Persistent small right pleural effusion with adjacent right basilar atelectasis or infiltrate. Medial left upper lobe lung mass. No change from the prior exam. Dictated by: Dictated on workstation # [id number]
[2016-10-04] MEDS: NS W/KCL 20 MEQ/L 1,000 ML IV SCH (09:51)
[2016-10-04 12:00] VITALS: BP 164/76
--- NOTE | 2016-10-04 14:22 | Progress Note-Standard ---
Standard Progress Note Progress Notes/Assess & Plan Progress/Assessment & Plan 61-year-old male with metastatic small cell lung cancer and on outpatient palliative chemotherapy, admitted with low-grade fever and new lung infiltrate. Patient has also been complaining of increased abdominal discomfort. He is on broad-spectrum antibiotics with azithromycin and cefepime day # 4. No temperature spikes. Feels much better today and pain under better control. Still needing Fentanyl 25 mcg IV every 2 hours for breakthrough pain. I will increase the fentanyl transdermal patch to 150 mcg/h today. Nebulizer treatments with bronchodilators are helping also. Continue IV antibiotics. I' ll plan on starting a new line of chemotherapy with Irinotecan starting early next week if he is stable. I also discussed the option of no active treatment with best supportive care but patient was not ready for this yet. Home soon if stable. ANAYA MANDEL Oct 04, 2016 14:22
[2016-10-04] MEDS ORDERED: fentaNYL PATCH 75 MCG (DURAGESIC) TOP SCH (14:30)
[2016-10-04 15:35] VITALS: BP 173/95
[2016-10-04] MEDS: AZITHROMYCIN IV ADD-VANTAGE 500 MG in SODIUM CHLORIDE (ADD-VANTAGE) 250 ML IV SCH (16:38)
[2016-10-04 20:00] VITALS: BP 166/85
[2016-10-05] VITALS: BP 158/74
[2016-10-05] MEDS: NYSTATIN ORAL SUSP 5 ML UDC PO SCH ×4 (00:30→17:09)
[2016-10-05] MEDS: fentaNYL INJECTION 100 MCG/2 ML AMP IVP PRN ×7 (00:37→15:46)
[2016-10-05 04:00] VITALS: BP 173/84
[2016-10-05 05:07] LABS: BASOPHILS % (AUTO) 0 % (0-10); EOSINOPHILS % (AUTO) 0 % (0-10); LYMPHOCYTES # (AUTO) 1.1 X 10^3 (1.0-4.0); LYMPHOCYTES % (AUTO) 14 % (12-44); MEAN CORPUSCULAR HEMOGLOBIN 31 PG (25-34); MEAN CORPUSCULAR HGB CONC 35 G/DL (32-36); MEAN CORPUSCULAR VOLUME 89 FL (80-99); MEAN PLATELET VOLUME 8.8 FL (7.4-10.4); MONOCYTES # (AUTO) 1.2 X 10^3 (0.0-1.0); MONOCYTES % (AUTO) 15 % (0-12); NEUTROPHILS # (AUTO) 5.4 X 10^3 (1.8-7.8); NEUTROPHILS % (AUTO) 71 % (42-75); PLATELET COUNT 223 10^3/uL (130-400); RED BLOOD COUNT 4.36 10^6/uL (4.35-5.85); WHITE BLOOD COUNT 7.7 10^3/uL (4.3-11.0)
[2016-10-05] MEDS: inSUlin (REGULAR) HUMAN 1 UNIT/0.01 ML (CHARGE PER UNIT) SC SCH ×4 (06:00→21:00)
[2016-10-05] MEDS: NS W/KCL 20 MEQ/L 1,000 ML IV SCH (07:03)
[2016-10-05] MEDS: RT-ALBUTEROL/IPRATROPIUM 3 ML (DUONEB) VIAL INH SCH ×3 (07:53→18:50)
[2016-10-05 08:00] VITALS: BP 171/99
[2016-10-05] MEDS: BISACODYL 10 MG SUPP (DULCOLAX) PR SCH ×2 (09:00→11:01)
[2016-10-05] MEDS: cefTRIAXone 1 GM/NS 50 ML IVPB IV SCH ×2 (09:28)
[2016-10-05] MEDS: APIXABAN 2.5 MG (ELIQUIS) TABLET PO SCH ×2 (09:28→22:42)
[2016-10-05] MEDS: lisINopril 5 MG (PRINIVIL) TABLET PO SCH (09:29)
[2016-10-05] MEDS: PANTOPRAZOLE 40 MG (PROTONIX) TAB PO SCH (09:29)
[2016-10-05] MEDS: SUCRALFATE 1 GM (CARAFATE) TAB PO SCH ×4 (09:29→22:42)
[2016-10-05] MEDS: carBAMazepine 200 MG (TEGretol) TAB PO SCH ×4 (09:36→22:42)
[2016-10-05] MEDS: PSYLLIUM POWDER (METAMUCIL) 5.8 GM PACKET PO SCH (09:37)
[2016-10-05 12:00] VITALS: BP 174/77
[2016-10-05] MEDS: AZITHROMYCIN IV ADD-VANTAGE 500 MG in SODIUM CHLORIDE (ADD-VANTAGE) 250 ML IV SCH (15:34)
[2016-10-05 16:00] VITALS: BP 167/86
--- NOTE | 2016-10-05 17:13 | Progress Note-Standard ---
Standard Progress Note Progress Notes/Assess & Plan Progress/Assessment & Plan 61-year-old male with metastatic small cell lung cancer and on outpatient palliative chemotherapy, admitted with low-grade fever and new lung infiltrate. Patient has also been complaining of increased abdominal discomfort. He is on broad-spectrum antibiotics with azithromycin and cefepime day # 4. No temperature spikes. Feels better today but still requiring Fentanyl 25 mcg IV every 2 hours for breakthrough pain. I will d/c Fentanyl IV and start Dilaudid 2 mg po every 4 hours as needed for breakthrough pain. I will d/c IV fluids as oral intake is better. D/c IV antibiotics. I'll plan on starting a new line of chemotherapy with Irinotecan starting early next week if he is stable. I also discussed the option of no active treatment with best supportive care but patient was not ready for this yet. Home tomorrow if pain under control and stable. ANAYA MANDEL Oct 05, 2016 17:13
[2016-10-05] MEDS: HYDROmorphone (DILAUDID) 2 MG TAB PO PRN ×2 (18:53→22:42)
[2016-10-05 20:00] VITALS: BP 159/92
[2016-10-06] VITALS: BP 141/91
[2016-10-06] MEDS: NYSTATIN ORAL SUSP 5 ML UDC PO SCH ×2 (00:18→05:57)
[2016-10-06 04:00] VITALS: BP 157/97
[2016-10-06] MEDS ORDERED: NITROGLYCERIN SUBLINGUAL 0.4 MG TAB (NITROSTAT) SL ONE (04:15)
[2016-10-06 04:47] LABS: BASOPHILS % (AUTO) 0 % (0-10); EOSINOPHILS % (AUTO) 1 % (0-10); LYMPHOCYTES # (AUTO) 0.8 X 10^3 (1.0-4.0); LYMPHOCYTES % (AUTO) 10 % (12-44); MEAN CORPUSCULAR HEMOGLOBIN 32 PG (25-34); MEAN CORPUSCULAR HGB CONC 35 G/DL (32-36); MEAN CORPUSCULAR VOLUME 90 FL (80-99); MEAN PLATELET VOLUME 9.2 FL (7.4-10.4); MONOCYTES # (AUTO) 1.1 X 10^3 (0.0-1.0); MONOCYTES % (AUTO) 13 % (0-12); NEUTROPHILS # (AUTO) 6.6 X 10^3 (1.8-7.8); NEUTROPHILS % (AUTO) 77 % (42-75); PLATELET COUNT 251 10^3/uL (130-400); RED BLOOD COUNT 4.41 10^6/uL (4.35-5.85); RED CELL DISTRIBUTION WIDTH 14.1 % (10.0-14.5); WHITE BLOOD COUNT 8.6 10^3/uL (4.3-11.0)
[2016-10-06 05:03] LABS: ANION GAP 12 MMOL/L (5-14); CARBON DIOXIDE 26 MMOL/L (21-32); CHLORIDE 96 MMOL/L (98-107); POTASSIUM 3.7 MMOL/L (3.6-5.0); SODIUM 134 MMOL/L (135-145)
[2016-10-06 05:04] LABS: BLOOD UREA NITROGEN 6 MG/DL (7-18); BUN/CREATININE RATIO 10; CALCIUM 8.5 MG/DL (8.5-10.1); CREATININE SERUM 0.59 MG/DL (0.60-1.30); GFR ESTIMATED > 60; GLUCOSE 206 MG/DL (70-105)
[2016-10-06] MEDS: inSUlin (REGULAR) HUMAN 1 UNIT/0.01 ML (CHARGE PER UNIT) SC SCH ×2 (05:56→12:00)
[2016-10-06] MEDS: HYDROmorphone (DILAUDID) 2 MG TAB PO PRN (05:57)
[2016-10-06] MEDS: RT-ALBUTEROL/IPRATROPIUM 3 ML (DUONEB) VIAL INH SCH (06:33)
[2016-10-06 08:00] VITALS: BP 188/91
--- NOTE | 2016-10-06 08:47 | Consultation-Cardiology ---
HPI-Cardiology Cardiology Consultation: Date of Consultation 10/06/16 Date of Admission 09-30-16 Attending Physician Anaya Mena Admitting Physician Danitza Barnes MD Consulting Physician Barbra Berger MD HPI: Chief Complaint: Chest pain Mr. Lopez is a 61 year old male admitted with pneumonia on 09-30-16. He reports yesterday he had an episode of mid-sternal chest discomfort which lasted for a few minutes and then moved to his abdomen. He states he drank some prune juice and has had a BM. He reports no further chest discomfort since then. He reports no c/o palpitations, syncope or near syncope. He reports he has chronic bilat LE edema which is better when legs are elevated. He wants to go home today. Review of Systems-Cardiology Review of Systems Constitutional: As described under HPI Eyes: No blurred vision, No drainage, No pain, No vision change Ears/Nose/Throat: No ear discharge, No ear pain, No nasal drainage, No ulcerations Respiratory: As described under HPI Cardiovascular: As described under HPI Gastrointestinal: No constipation, No diarrhea, No nausea, No vomiting, No stool coloration changes Genitourinary: No dysuria, No discharge, No frequency, No hematuria, No urgency Skin: No rash, No skin related problems, No ulcerations Psychiatric/Neurological: No anxiety, No depression, No focal weakness, No seizure, No syncope Hematologic: No bleeding abnormalities XRS-Dqynll-Tcenkg Hx Patient Social History Alcohol Use: Denies Use Recreational Drug Use: No Smoking Status: Current Everyday Smoker Type Used: Cigarettes Recent Foreign Travel: No Recent Infectious Disease Expo: No Hospitalization with Isolation: Denies Physical Abuse Screen: No Sexual Abuse: No Immunizations Up To Date Tetanus Booster (TDap): Less than 5yrs Date of Pneumonia Vaccine: December 25, 2012 Date of Influenza Vaccine: May 22, 2016 Past Medical History PMH As described under Assessment. Family Medical History Family Medical History: Reports no family h/o CAD. Reports sister had a CVA. Family History: 19 FATHER, FH: COPD (chronic obstructive pulmonary disease), Onset:60 years & older 19 MOTHER FH: COPD (chronic obstructive pulmonary disease), Onset:60 years & older Diabetes mellitus, Onset:40's - 50 G8 SISTER, , Age:62 FH: stroke, Onset:60 years & older Allergies and Home Medications Allergies Coded Allergies: No Known Drug Allergies (Unverified , 01/11/16) Home Medications Apixaban 5 Mg Tablet 2.5 MG PO BID (Reported) takes 1/2 tab of 5 mg tabs BID Carbamazepine 400 Mg Tab.er.12h 400 MG PO BID (Reported) Diltiazem HCl 300 Mg Cap.er.24h #30 300 MG PO DAILY Prescribed by: QUITA ROUSE on 10/06/16920 Fentanyl 1 Each Patch.td72 30Days 150 MCG TOP Q72H Prescribed by: ANAYA MENA on 10/06/16 1048 Fluoxetine HCl 20 Mg Tablet 20 MG PO DAILY (Reported) Furosemide 40 Mg Tablet #30 40 MG PO DAILY Prescribed by: QUITA ROUSE on 10/06/16920 Lactulose 10 Gm/15 Ml Solution 15-30 ML PO DAILY PRN PRN CONSTIPATION (Reported ) NEW MEDICATION, HAS NOT STARTED Lisinopril 5 Mg Tablet 5 MG PO DAILY (Reported) LAST FILLED 05-08-16 #90 Ondansetron HCl 4 Mg Tab 4 MG PO Q4H PRN PRN NAUSEA/VOMITING (Reported) Oxycodone HCl 10 Mg Tablet 10 MG PO 0000,0600,1200,1800 (Reported) Pantoprazole Sodium 40 Mg Tablet.dr 40 MG PO DAILY (Reported) Potassium Chloride 20 Meq Tablet.er #30 20 MEQ PO DAILY Prescribed by: QUITA ROUSE on 10/06/16920 Sucralfate 1 Gm Tablet 1 GM PO ACHS PRN PRN STOMACH UPSET (Reported) Physical Exam-Cardiology Physical Exam Vital Signs/I&O Vital Sign - Last 12Hours 10/06/16 10/06/16 10/06/16 10/06/16 04:00 08:00 08:00 12:39 Temp 98.0 96.5 Pulse 102 98 98 Resp 18 20 20 B/P 157/97 188/91 188/91 Pulse Ox 100 99 99 O2 Delivery Nasal Cannula Room Air Room Air O2 Flow Rate 3.00 3.00 Intake and Output 10/06/16 00:00 Intake Total 3040 ml Output Total 600 ml Balance 2440 ml Capillary Refill : Less Than 3 Seconds Constitutional: appears stated ageNo apparent distress, well-developed well- nourished HEENT: PERRLNo discharge, hearing is well preserved oral hygience is goodNo ulceration, No xanthelasmas are seen Neck: No carotid bruit, carotid pulses are 2 + bilaterally Respiratory: No accessory muscle use, No respiratory distress, other ( diminished lung sounds) Cardiovascular: irregularly irregularNo JVD Gastrointestinal: No tender, soft roundNo spleenomegaly Extremities: No clubbing, No cyanosis, significant edema (2 + LE edema bilat) Neurologic/Psychiatric: alert oriented x 3 power is 5/5 both on sides Skin: No rash, No ulcerations Data Review Labs Laboratory Tests 10/05/16 16:10: Glucometer 239H 10/05/16 21:16: Glucometer 200H 10/06/16 04:25: Anion Gap 12, BUN/Creatinine Ratio 10, Basophils # (Auto) 0.0, Basophils (%) ( Auto) 0, Blood Urea Nitrogen 6L, Calcium Level 8.5, Carbon Dioxide Level 26, Chloride Level 96L, Creatinine 0.59L, Eosinophils # (Auto) 0.0, Eosinophils (%) (Auto) 1, Estimat Glomerular Filtration Rate > 60, Glucose Level 206H, Hematocrit 40, Hemoglobin 13.9, Lymphocytes # (Auto) 0.8L, Lymphocytes (%) (Auto ) 10L, Mean Corpuscular Hemoglobin 32, Mean Corpuscular Hemoglobin Concent 35, Mean Corpuscular Volume 90, Mean Platelet Volume 9.2, Monocytes # (Auto) 1.1H, Monocytes (%) (Auto) 13H, Neutrophils # (Auto) 6.6, Neutrophils (%) (Auto) 77H, Platelet Count 251, Potassium Level 3.7, Red Blood Count 4.41, Red Cell Distribution Width 14.1, Sodium Level 134L, Troponin I < 0.30, White Blood Count 8.6 10/06/16 11:17: Glucometer 226H Microbiology 09/30/16 Blood Culture - Final, Complete No growth Radiology NAME: KWAME LOPEZ [facility] REC#: [id number] PT STATUS: ADM IN : 1955 PHYSICIAN: ANAYA MENA MD ADMIT DATE: 09/30/16 Signed Date of Exam: 10/01/16 CT CHEST W/ABDOMEN-PELVIS W WO CLINICAL INDICATION: Patient complains of abdominal pain and nausea. Patient has history of small cell lung cancer stage IV. EXAM: CT scan of the chest, abdomen, and pelvis performed without and with 100 cc of Omnipaque 350 IV contrast. Portal venous phases were obtained and delayed phases. Coronal reformatted images were created. COMPARISON: CT scan of the chest, abdomen, and pelvis dated 08/25/2016. FINDINGS: CHEST: There is interval development of a moderate sized right pleural effusion and small left pleural effusion. Emphysematous lung disease is seen. There is interval increased size of the spiculated nodule in the medial left lung apex which currently measures 1.9 cm x 3.0 cm compared to the prior study measured at 1.5 cm x 2.6 cm. Relatively stable size spiculated nodule in the superior left perihilar/left upper lobe region which currently measures 2.7 cm x 1.5 cm and is not significantly changed. Stable nodular thickening involving the anterior aspect of the left upper lobe with adjacent parenchymal stranding. There is interval development of small parenchymal bands involving the right lung base likely related to atelectasis. There is no gross nodularity involving the pleural surface or within the pleural effusion. There is interval progression of markedly enlarged lower neck, mediastinum, and bilateral hilar lymph nodes. Marker lymph node in the low left neck just posterior to the left thyroid gland currently measures 1.5 cm x 2.1 cm compared to the prior study measured at 1.2 cm x 1.3 cm. This lesion is measured on series 3, image 5. Other marker enlarged lymph node is seen between the left common carotid artery and left subclavian artery just above the aortic arch seen on series 3, image 15. This lymph node currently measures 2.3 cm x 3.4 cm compared to the prior study measured at 1.2 cm x 1.5 cm. Another marker enlarged lymph node is seen in the precarinal region which currently measures 2.5 cm x 4.1 cm compared to the prior study measured at 2.5 cm x 3.1 cm. Again, all the other mediastinum and paraesophageal lymph nodes have also increased in size. There is interval increased size of the retrocrural lymph node which is just right of the aorta which currently measures 2.5 cm x 3.0 cm compared to the prior study measured at 2.3 cm x 2.3 cm and is seen on series 3, image 52. There are degenerative spurs involving the thoracic spine. There is no gross bony destructive changes seen. The aortic arch and pulmonary arteries are patent, as visualized. Thyroid gland is unremarkable. There is no significant axillary lymphadenopathy. Dpkpak-x-Kjta seen overlying the right chest with tip in the distal superior vena cava. ABDOMEN AND PELVIS: There is interval development of diffuse and conglomerative lymphadenopathy seen adjacent to the celiac artery, SMA, and in the right lexus hepatis region. A marker lymph node is seen just anterior to the bifurcation of the celiac artery seen on series 3, image 64 which currently measures 4.3 cm x 5.1 cm compared to the prior study measured at 3.0 cm x 3.8 cm. There is also enlarged periaortic conglomerative lymph nodes in the retrocrural region and periaortic region of the upper abdomen. There is interval increased size of the multiple metastatic masses throughout the liver. The largest marker lesion is seen in the inferior tip of the right lobe of the liver and currently measures 5.6 cm x 4.9 cm compared to the prior study measured at 4.2 cm x 4.2 cm. The remainder of the abdomen and pelvis has not significantly changed in the interim. 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 The spleen, pancreas, and adrenal glands have not significantly changed. Stable thickening of the left adrenal gland. Both kidneys are unremarkable with no hydronephrosis or mass seen. Gallbladder demonstrates stable gallbladder wall thickening, but is partially fluid-filled. There is no evidence of intestinal obstruction. The bladder is fluid distended with no gross abnormalities seen. There is no intra-abdominal free air or free fluid. The extraabdominal and extrapelvic soft tissue structures are stable with no significant interval abnormality. Stable fat-containing left inguinal hernia. IMPRESSION: 1: Overall, there is interval progression of diffuse metastatic disease involving the chest and upper abdomen with metastasis to the liver and diffuse conglomerative lymphadenopathy. This is described in detail above. 2: There is interval development of a moderate size right pleural effusion and small left pleural effusion. 3: There is increased size of the left lung apex spiculated nodule. 4. There is stable sized superior left perihilar/left upper lobe spiculated nodule. 5: Stable gallbladder wall thickening. The gallbladder is partially fluid distended. 6: The remainder of this exam shows no significant interval change compared to the prior study of comparison. Dictated by: Dictated on workstation # [id number] Dict: 10/01/16 1203 Trans: 10/01/16 1401 [id number] Interpreted by: GABRIELE HERMAN MD Electronically signed by:GABRIELE HERMAN MD 10/01/16 1404 NAME: KWAME LOPEZ [facility] REC#: [id number] PT STATUS: ADM IN : 1955 PHYSICIAN: ANAYA MENA MD ADMIT DATE: 09/30/16 Signed Date of Exam: 10/04/16 CHEST PA/LAT (2 VIEW) EXAMINATION: PA and lateral views of the chest. COMPARISON: 10/01/2016. FINDINGS: There is mild right basilar infiltrate or atelectasis without significant change from the prior exam. There is a small right pleural effusion. A medial left upper lobe lung mass is seen. This is unchanged also from the previous study. The heart size is normal. No pneumothorax. IMPRESSION: Persistent small right pleural effusion with adjacent right basilar atelectasis or infiltrate. Medial left upper lobe lung mass. No change from the prior exam. Dictated by: Dictated on workstation # [id number] Dict: 10/04/16 0914 Trans: 10/04/16 1349 [id number] Interpreted by: KAYLENE MILNER MD Electronically signed by:KAYLENE MILNER MD 10/04/16 1351 ECG Impression ECG Initial ECG Impression: Atrial Fibrillation A/P-Cardiology Assessment/Admission Diagnosis Nonspecific chest discomfort for which he desires no further work up, currently stable Echocardiogram of 06-07-16 showed LVEF 60%. Trivial MR and TR. No evidence of valvular stenosis. PASP noted to be 20-25mmHG L-sided small cell CA of the L lung (metastatic to mediastinal LN and liver) for which he is receiving radiation and chemo Brief runs of paroxysmal atrial flutter - HR controlled Apixaban stroke prophylaxis, noncompliance because of nosebleeds on a few occ ( 2.5mg BID d/t propensity to bleeding, h/o low platelet count and rec of oncology services) DM II Hypertension Chronic tobacco use Discussion and Recomendations No further c/o chest discomfort. No evidence of ACS. HR is not well controlled. He was previously taking Cardizem CD, but it seems he not taking it at this time. He states he believes he was still taking it at home. We will restart Cardizem for rate control. He has PRN Lasix which he has not been taking. We will restart PRN Lasix for LE edema. Cardiac status clinically stable for discharge from cardiac stand point. We will see him as an outpt. We would like to thank Dr. Mena for this consult. This consult is being scribed by Airam Rouse APRN on behalf of Dr. Berger after discussion regarding plan of care. Clinical Quality Measures DVT/VTE Risk/Contraindication: Risk Factor Score Per Nursin RFS Level Per Nursing on Admit: 4+=Very High Physician Assessment Physician Assessment Lungs: fair to good bilat air entry Cor: irreg A&R * As documented in our note above * I spoke with him in detail and answered questions QUITA ROUSE Oct 06, 2016 08:47 BARBRA BERGER MD FACP FAC CCDS Oct 06, 2016 14:01
[2016-10-06] MEDS ORDERED: FUROSEMIDE 40 MG (LASIX) TAB PO NR (09:15)
[2016-10-06] MEDS ORDERED: DILTIAZEM 300 MG (CARDIZEM CD) CAP PO NR (09:15)
[2016-10-06] MEDS ORDERED: KCL 20 MEQ TAB (K-DUR) PO NR (09:15)
[2016-10-06] MEDS ORDERED: FURO-124 PO (09:21)
[2016-10-06] MEDS ORDERED: DILT300C36 PO (09:21)
[2016-10-06] MEDS ORDERED: POTA-51 PO (09:21)
[2016-10-06] MEDS ORDERED: FENT1PAT10 TOP (10:48)
--- NOTE | 2016-10-06 10:54 | Discharge Inst-Simple/Standard ---
Discharge Inst-Standard Discharge Medications New, Converted or Re-Newed RX: RX Given to Pt/Family Patient Instructions/Follow Up Plan of Care/Instructions/FU: F/u at cancer center on 10/12/2016 @ 1400 hrs for chemotherapy. Activity as Tolerated: Yes Discharge Diet: No Restrictions, ADA Diet ANAYA MANDEL Oct 06, 2016 10:54
[2016-10-06] MEDS: PANTOPRAZOLE 40 MG (PROTONIX) TAB PO SCH (10:58)
[2016-10-06] MEDS: BISACODYL 10 MG SUPP (DULCOLAX) PR SCH (10:58)
[2016-10-06] MEDS: SUCRALFATE 1 GM (CARAFATE) TAB PO SCH (10:59)
[2016-10-06] MEDS: lisINopril 5 MG (PRINIVIL) TABLET PO SCH (10:59)
[2016-10-06] MEDS: carBAMazepine 200 MG (TEGretol) TAB PO SCH (10:59)
[2016-10-06] MEDS: PSYLLIUM POWDER (METAMUCIL) 5.8 GM PACKET PO SCH (11:01)
[2016-10-06] MEDS: APIXABAN 2.5 MG (ELIQUIS) TABLET PO SCH (11:01)
[2016-10-06] MEDS: cefTRIAXone 1 GM/NS 50 ML IVPB IV SCH ×2 (11:11)
[2016-10-06 12:39] VITALS: BP 188/91
[2016-10-07] MEDS ORDERED: KCL 20 MEQ TAB (K-DUR) PO SCH (07:00)
[2016-10-07] MEDS ORDERED: DILTIAZEM 300 MG (CARDIZEM CD) CAP PO SCH (09:00)
[2016-10-07] MEDS ORDERED: FUROSEMIDE 40 MG (LASIX) TAB PO SCH (09:00)
[2016-10-07] MEDS ORDERED: FENTANYL PATCH REMOVAL TP SCH (14:29)
--- NOTE | 2016-10-08 09:04 | DISCHARGE SUMMARY ---
DATE OF ADMISSION: 09/30/2016 DATE OF DISCHARGE: 10/06/2016 The patient was admitted to Room 421 FINAL DIAGNOSES: 1. Right lower lobe pneumonia. 2. Metastatic small cell lung cancer with progressive disease. 3. Upper abdominal pain due to progressive small cell lung cancer and lymphadenopathy. 4. Paroxysmal atrial flutter. BRIEF HISTORY AND HOSPITAL COURSE: Mr. Noriega is a 61-year-old male with history of metastatic small cell lung cancer diagnosed in early 2015 and on outpatient chemotherapy. He was admitted to the hospital with increasing shortness of breath and upper abdominal pain. Chest x-ray showed a new area of atelectasis in the right lower lobe and was admitted to the hospital for broad spectrum antibiotic coverage for a possible pneumonia. He was started on antibiotics did not have any temperature spikes. He was also started on pain medications with the dose titrated for comfort. He was complaining of constipation which was controlled with laxatives and stool softeners. With continued upper abdominal discomfort, restaging CT scans were obtained, which showed progressive small cell lung cancer, both in the lung and mediastinum, as well as liver and upper abdomen with significant lymphadenopathy, which was felt to be the reason for his upper abdominal pain. The fentanyl transdermal patch was titrated and increased from 50 to 100 and then to 150. He was on fentanyl injections IV for breakthrough pain and this was switched over to Dilaudid 2 mg but patient could not tolerate this well because of heartburn-like symptoms. Previously he was on oxycodone for breakthrough pain which he was tolerating this well and was instructed to continue this. 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 An EKG showed atrial flutter/PACs. He was given one dose of nitroglycerin with some relief. Cardiology consultation was obtained as well as cardiac enzymes. The cardiac enzymes were unremarkable. Cardiology evaluation felt there was no acute coronary syndrome. He has history of paroxysmal atrial flutter/fibrillation and has been on low-dose anticoagulation. He could not tolerate the full dose anticoagulation for stroke prophylaxis because of nose bleeds. They readjusted his medications and restarted him on Cardizem and Lasix with potassium. He is being discharged on 10/06/2016 with the following instructions. His fentanyl patch will be 150 mcg every 3 days and a prescription for 75 mcg patch; two of them every 72 hours with a 30 day supply was given to him. After 5 days of antibiotics the antibiotics was discontinued. He also had evidence of oral candidiasis and was on nystatin which will also be discontinued. He will continue the rest of his home medications. He is to follow-up at the Cancer [facility] on 10/12/2016 at 1400 hours for chemotherapy teaching and probable chemotherapy with Irinotecan. Prior to this, if he is having any new or unusual symptoms he was instructed to contact us. He will follow-up with Dr. Berger as instructed. Job ID: [id number] Dictated Date: 10/06/2016 11:04:30 Hr Business Partner Date: 10/08/2016 08:49:26/marco NEGRON
== END 2016-10-06 12:43 | disposition home or self-care (01) | DRG 190 ==
LOC: EDUNIT# 11:49 → ER 11:49 → 4TH 15:40
PROVIDERS: ADMIT Internal Medicine Hematology & Oncology; ATTEND Internal Medicine Hematology & Oncology
DX: J44.0 Chronic obstructive pulmonary disease with (acute) lower respiratory infection (principal); J18.9 Pneumonia, unspecified organism; C34.12 Malignant neoplasm of upper lobe, left bronchus or lung; C78.7 Secondary malignant neoplasm of liver and intrahepatic bile duct; C78.1 Secondary malignant neoplasm of mediastinum; G89.3 Neoplasm related pain (acute) (chronic); R59.1 Generalized enlarged lymph nodes; R62.7 Adult failure to thrive; E87.6 Hypokalemia; K59.00 Constipation, unspecified; I48.92 Unspecified atrial flutter; B37.0 Candidal stomatitis; R60.0 Localized edema; I10 Essential (primary) hypertension; G40.909 Epilepsy, unspecified, not intractable, without status epilepticus; E11.9 Type 2 diabetes mellitus without complications; K21.9 Gastro-esophageal reflux disease without esophagitis; F32.9 Major depressive disorder, single episode, unspecified; F17.210 Nicotine dependence, cigarettes, uncomplicated; R07.89 Other chest pain; Z79.4 Long term (current) use of insulin
CPT/HCPCS: 36415; 71020; 71260; 74022; 74178; 80048; 80053; 81000; 82962; 83605; 83690; 83880; 84484; 85025; 85379; 85610; 87040; 93005; 94640; 94760; 96374; 96375

== ENCOUNTER 2016-10-10 09:34 | Emergency (ER) | payer OTHER ==
[~2016-10-10] VITALS: Ht 175.3 cm; Wt 90.7 kg
[~2016-10-10 09:34] MED LIST changes: +DILT300C36 PO; +FENT1PAT10 TOP; +FENT1PAT9 TD; +FURO-124 PO; +LACT10SO PO; +PANT40TA2 PO; +PANT40TA3 PO; +POTA-51 PO; +SUCR1TAB36 PO
--- OUTSIDE RECORDS SUMMARY | 2016-10-10 09:41 | XMS REPORT | Continuity of Care Document ---
Author Author [facility] Organization [facility] Address Unknown Phone Unavailable Care Team Providers Care Plow Holder Name Role Phone AMBROSIO LILLY MD PCP Insurance Providers Payer Name Policy Number Subscriber Name Relationship [employer] [id number] Fabrice Lopez 19 Self / Same As Patient Advance Directives Directive Response Recorded Date/Time Advance Directives No 05/19/16 6:22pm Health Care Power of Jawbone Breaker No 05/19/16 6:22pm Resuscitation Status Full Code [...] - 99.5) 05/19/2016 6:22pm Temperature (Calculated Celsius) 36.34031 degrees C (36.4 - 37.5) 05/19/2016 6:22pm [...] 10.00 inches 05/19/2016 6:22pm Height (Calculated Centimeters) 177.649726 cm 05/19/2016 6:22pm Weight (Pounds) 200 pounds 05/19/2016 6:22pm Weight (Ounces) 0 oz 05/19/2016 6:22pm Weight (Calculated Grams) 31920.551 gm 05/19/2016 6:22pm Weight (Calculated Kilograms) 90.546322 kilograms 05/19/2016 6:22pm Calculated BMI 27.3 05/19/2016 [...] Date Attending Provider Departed Emergency Room [facility] 05/19/16 5:55pm 05/19 6:50pm AMBROSIO HANSEN DO Registered Recurring [facility] 05/17/16 10:08am ANAYA MANDEL Discharged Recurring [facility] 01/26/16 9:15am 11:59pm ANAYA MANDEL Recent Diagnosis
[2016-10-10] MEDS ORDERED: ONDANSETRON 4 MG/2 ML (SDV) Z0FRAN IVP ONE (10:00)
[2016-10-10 10:03] LABS: BASOPHILS % (AUTO) 0 % (0-10); EOSINOPHILS % (AUTO) 0 % (0-10); LYMPHOCYTES # (AUTO) 0.6 X 10^3 (1.0-4.0); LYMPHOCYTES % (AUTO) 4 % (12-44); MEAN CORPUSCULAR HEMOGLOBIN 32 PG (25-34); MEAN CORPUSCULAR HGB CONC 35 G/DL (32-36); MEAN CORPUSCULAR VOLUME 90 FL (80-99); MEAN PLATELET VOLUME 9.2 FL (7.4-10.4); MONOCYTES # (AUTO) 1.6 X 10^3 (0.0-1.0); MONOCYTES % (AUTO) 11 % (0-12); NEUTROPHILS # (AUTO) 11.6 X 10^3 (1.8-7.8); NEUTROPHILS % (AUTO) 84 % (42-75); PLATELET COUNT 242 10^3/uL (130-400); RED BLOOD COUNT 4.44 10^6/uL (4.35-5.85); RED CELL DISTRIBUTION WIDTH 13.8 % (10.0-14.5); WHITE BLOOD COUNT 13.7 10^3/uL (4.3-11.0)
[2016-10-10] MEDS ORDERED: NS IV 1000 ML 1,000 ML IV ONE (10:06)
[2016-10-10] MEDS ORDERED: HYDROmorphone (DILAUDID) 2 MG/ML VIAL IVP STA ×2 (10:06→12:59)
--- NOTE | 2016-10-10 10:20 | ED Abdominal Pain ---
General Chief Complaint: Abdominal/GI Problems Stated Complaint: ABD PAIN Nursing Triage Note: PT CO OF ABD PAIN PT HAS HX LUNG AND LIVER CA, PT IS ON FENTYL PATCH AND OXYCODONE FOR PAIN. 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 He has been using 150 g of fentanyl patches as well as oral oxycodone 4 times a day. This has not been sufficient for managing his pain. He feels significant abdominal pressure as if he is constipated but feels this may be due to tumor burden. He did have a bowel movement yesterday after use of bowel regimens such as enema. According to his chart his chemotherapy and radiation treatments have been palliative. He has not presently undergoing any therapy but was potentially going to restart chemotherapy this week. He was recently discharged from the hospital on October 06 after being treated for left lower lobe pneumonia. He is afebrile at present. He rates his current pain as 5 or 6. Allergies and Home Medications Allergies Coded Allergies: No Known Drug Allergies (Unverified , 01/11/16) Home Medications Apixaban 5 Mg Tablet 2.5 MG PO BID (Reported) takes 1/2 tab of 5 mg tabs BID Carbamazepine 400 Mg Tab.er.12h 400 MG PO BID (Reported) Diltiazem HCl 300 Mg Cap.er.24h #30 300 MG PO DAILY Prescribed by: QUITA VALIENTE on 10/06/16 0921 Fentanyl 1 Each Patch.td72 30Days 150 MCG TOP Q72H Prescribed by: ANAYA MANDEL on 10/06/16 1048 Fluoxetine HCl 20 Mg Tablet 20 MG PO DAILY (Reported) Furosemide 40 Mg Tablet #30 40 MG PO DAILY Prescribed by: QUITA VALIENTE on 10/06/16 0921 Lactulose 10 Gm/15 Ml Solution 15-30 ML PO DAILY PRN PRN CONSTIPATION (Reported ) NEW MEDICATION, HAS NOT STARTED Lisinopril 5 Mg Tablet 5 MG PO DAILY (Reported) LAST FILLED 05-08-16 #90 Ondansetron 8 Mg Tab.rapdis #30 8 MG SL Q6H PRN PRN NAUSEA/VOMITING Prescribed by: JUAN WESLEY on 10/10/16 1222 Ondansetron HCl 4 Mg Tab 4 MG PO Q4H PRN PRN NAUSEA/VOMITING (Reported) Oxycodone HCl 10 Mg Tablet 10 MG PO 0000,0600,1200,1800 (Reported) Pantoprazole Sodium 40 Mg Tablet.dr 40 MG PO DAILY (Reported) Potassium Chloride 20 Meq Tablet.er #30 20 MEQ PO DAILY Prescribed by: QUITA VALIENTE on 10/06/16 0921 Promethazine HCl 25 Mg Tablet #30 25 MG PO Q6H PRN PRN NAUSEA/VOMITING Prescribed by: JUAN WESLEY on 10/10/16 1222 Sucralfate 1 Gm Tablet 1 GM PO ACHS PRN PRN STOMACH UPSET (Reported) Review of Systems Constitutional: no symptoms reported EENTM: No Symptoms Reported Respiratory: See HPI Cardiovascular: No Symptoms Reported Gastrointestinal: See HPI Genitourinary: No Symptoms Reported Musculoskeletal: no symptoms reported Skin: no symptoms reported Psychiatric/Neurological: No Symptoms Reported Endocrine: No Symptoms Reported Hematologic/Lymphatic: See HPI Past Ngdwoqs-Tmfmss-Yvhurw Hx Patient Social History Alcohol Use: Denies Use Recreational Drug Use: No Smoking Status: Former Smoker Type Used: Cigarettes Recent Foreign Travel: No Contact w/Someone Who Travel: No Recent Infectious Disease Expo: No Recent Hopitalizations: Yes (1 WEEK AGO WITH DEHYDRATION) Immunizations Up To Date Tetanus Booster (TDap): Less than 5yrs PED Vaccines UTD: No Date of Pneumonia Vaccine: December 25, 2012 Date of Influenza Vaccine: May 22, 2016 Seasonal Allergies Seasonal Allergies: No Surgeries HX Surgeries: Yes (INGUINAL HERNIA, LEFT SHOULDER FX, bronchoscopy 01/10/16) Surgeries: Abdominal, Orthopedic Respiratory Hx Respiratory Disorders: Yes (SMALL CELL LUNG CANCER) Respiratory Disorders: COPD Cardiovascular Hx Cardiac Disorders: Yes Cardiac Disorders: Atrial Fibrillation (paroxysmal atrial flutter), Hypertension Neurological Hx Neurological Disorders: Yes Neurological Disorders: Seizure Disorder Reproductive System Hx Reproductive Disorders: No Genitourinary Hx Genitourinary Disorders: No Gastrointestinal Hx Gastrointestinal Disorders: Yes Gastrointestinal Disorders: Gastroesophageal Reflux Musculoskeletal Hx Musculoskeletal Disorders: No Endocrine Hx Endocrine Disorders: Yes Endocrine Disorders: Diabetes, Insulin dep HEENT HX ENT Disorders: No Loss of Vision: Denies Hearing Impairment: Denies Cancer Hx Cancer: Yes Cancer: Liver (small cell lung cancer primary), Lung (progressive metastatic small cell lung cancer) Psychosocial Hx Psychiatric Problems: No Behavioral Health Disorders: Depression Integumentary HX Skin/Integumentary Disorder: No Blood Transfusions Hx Blood Disorders: No Adverse Reaction to a Blood Tr: No Family Medical History Significant Family History: Cancer Family Medial History: Diabetes mellitus 19 MOTHER, Onset:40's - 50 FH: COPD (chronic obstructive pulmonary disease) 19 FATHER, , Onset:60 years & older 19 MOTHER, Onset:60 years & older FH: stroke G8 SISTER, , Age:62, Onset:60 years & older Physical Exam Vital Signs VS - Last 72 Hours, by Label 10/10/16 10/10/16 09:35 13:16 Temp 98.7 Pulse 17 93 Resp 20 20 B/P 158/84 Pulse Ox 94 93 O2 Delivery Room Air Capillary Refill : Less Than 3 Seconds General Appearance: WD/WN moderate distress HEENT: PERRL/EOMI normal ENT inspection pharynx normal Neck: normal inspection Respiratory: lungs clear normal breath sounds no respiratory distress no accessory muscle use Cardiovascular: regular rate, rhythm no edema no murmur Gastrointestinal: normal bowel sounds distended tenderness (generalized) Extremities: normal inspection no pedal edema Neurologic/Psychiatric: manual tester II-XII nml as tested no motor/sensory deficits alert normal mood/affect oriented x 3 Skin: normal color warm/dry Progress/Results/Core Measures Results/Orders Lab Results Laboratory Tests Test 10/10/16 09:55 10/10/16 11:26 Range/Units Alanine Aminotransferase (ALT/SGPT) 26 0-55 U/L Albumin 2.9 L 3.2-4.5 G/DL Alkaline Phosphatase 394 H 40-136 U/L Anion Gap 11 5-14 MMOL/L Aspartate Amino Transf (AST/SGOT) 48 H 5-34 U/L BUN/Creatinine Ratio 15 Band Neutrophils 3 % Basophils # (Auto) 0.0 0.0-0.1 10^3/uL Basophils % (Manual) 0 % Basophils (%) (Auto) 0 0-10 % Blood Morphology Comment NORMAL Blood Urea Nitrogen 9 7-18 MG/DL Calcium Level 8.6 8.5-10.1 MG/DL Carbon Dioxide Level 26 21-32 MMOL/L Chloride Level 93 L 98-107 MMOL/L Creatinine 0.61 0.60-1.30 MG/DL Eosinophils # (Auto) 0.0 0.0-0.3 10^3/uL Eosinophils % (Manual) 0 % Eosinophils (%) (Auto) 0 0-10 % Estimat Glomerular Filtration Rate > 60 Glucose Level 190 H 70-105 MG/DL Hematocrit 40 40-54 % Hemoglobin 14.0 13.3-17.7 G/DL Lipase 8 8-78 U/L Lymphocytes # (Auto) 0.6 L 1.0-4.0 X 10^3 Lymphocytes % (Manual) 3 % Lymphocytes (%) (Auto) 4 L 12-44 % Mean Corpuscular Hemoglobin 32 25-34 PG Mean Corpuscular Hemoglobin Concent 35 32-36 G/DL Mean Corpuscular Volume 90 80-99 FL Mean Platelet Volume 9.2 7.4-10.4 FL Monocytes # (Auto) 1.6 H 0.0-1.0 X 10^3 Monocytes % (Manual) 9 % Monocytes (%) (Auto) 11 0-12 % Neutrophils # (Auto) 11.6 H 1.8-7.8 X 10^3 Neutrophils % (Manual) 85 % Neutrophils (%) (Auto) 84 H 42-75 % Platelet Count 242 130-400 10^3/uL Potassium Level 3.8 3.6-5.0 MMOL/L Red Blood Count 4.44 4.35-5.85 10^6/uL Red Cell Distribution Width 13.8 10.0-14.5 % Sodium Level 130 L 135-145 MMOL/L Total Bilirubin 1.8 H 0.1-1.0 MG/DL Total Protein 6.1 L 6.4-8.2 G/DL White Blood Count 13.7 H 4.3-11.0 10^3/uL Urine Bacteria NEGATIVE /HPF Urine Bilirubin 2+ H NEGATIVE Urine Casts NONE /LPF Urine Clarity CLEAR Urine Color NICK H Urine Crystals NONE /LPF Urine Culture Indicated NO Urine Glucose (UA) 1+ H NEGATIVE Urine Ketones 3+ H NEGATIVE Urine Leukocyte Esterase 1+ H NEGATIVE Urine Mucus NEGATIVE /LPF Urine Nitrite NEGATIVE NEGATIVE Urine Protein 3+ H NEGATIVE Urine RBC 0-2 /HPF Urine RBC (Auto) 2+ H NEGATIVE Urine Specific [place] 1.020 1.016-1.022 Urine Urobilinogen 4 H NORMAL MG/DL Urine WBC RARE /HPF Urine pH 6 5-9 My Orders Brandi-JUAN ACUÑA MD Saline Lock/Iv-Start (10/10/16 09:38) Cbc With Automated Diff (10/10/16 09:38) Comprehensive Metabolic Panel (10/10/16 09:38) Lipase (10/10/16 09:38) Ua Culture If Indicated (10/10/16 09:38) Ondansetron Injection (Zofran Injectio (10/10/16 10:00) Manual Differential (10/10/16 09:55) Abdomen, Flat & Upright/Decub (10/10/16 10:06) Hydromorphone Injection (Dilaudid Inject (10/10/16 10:06) Ns Iv 1000 Ml (Sodium Chloride 0.9%) (10/10/16 10:06) Chest Pa/Lat (2 View) (10/10/16 10:22) Promethazine Injection (Phenergan Injec (10/10/16 10:45) Ns Iv 500 Ml (Sodium Chloride 0.9%) (10/10/16 11:52) Hydromorphone Injection (Dilaudid Inject (10/10/16 12:54) Hydromorphone Injection (Dilaudid Inject (10/10/16 12:59) Heparin (Central Iv Flush) (Heparin (Elizabeth (10/10/16 13:00) Medications Given in ED Current Medications Medications Dose Ordered Sig/Nohemy Route Start Time Stop Time Status Last Admin Dose Admin Heparin Sodium (Porcine) 500 unit STK-MED ONCE .ROUTE 10/10/16 13:00 10/10/16 13:02 DC 10/10/16 13:05 500 UNIT Ondansetron HCl 8 mg 8 mg ONCE ONCE IVP 10/10/16 10:00 10/10/16 10:03 DC 10/10/16 10:01 8 MG Promethazine HCl 25 mg 25 mg ONCE ONCE IVP 10/10/16 10:45 10/10/16 10:46 DC 10/10/16 10:45 25 MG Sodium Chloride 500 ml @ 0 mls/hr Q0M ONCE IV 10/10/16 11:52 10/10/16 11:53 DC 10/10/16 12:22 500 MLS/HR Sodium Chloride 1,000 ml @ 0 mls/hr Q0M ONCE IV 10/10/16 10:06 10/10/16 10:14 DC 10/10/16 10:27 1,000 MLS/HR Vital Signs/I&O Vital Sign - Last 12Hours 10/10/16 10/10/16 09:35 13:16 Temp 98.7 Pulse 17 93 Resp 20 20 B/P 158/84 Pulse Ox 94 93 O2 Delivery Room Air Blood Pressure Mean: 108 Progress Note #1: Time: 10:20 Progress Note Patient seen and examined. Dilaudid ordered for further pain management. Zofran 8 mg IV ordered for nausea. Progress Note #2: Time: 12:13 Progress Note IV Dilaudid worked well for pain management in the ER. Phenergan worked well for nausea management. A liter of IV fluids has been infused. Urine was rather concentrated and patient's oral intake is poor. An additional 500 mL of fluids will be administered before discharge. Case was reviewed with Dr. Crum. He stated oral Dilaudid was not well tolerated on his last hospital admission. He recommended increasing the oxycodone from 10 mg to 20 mg if needed. A new prescription can be arranged through his office at the follow-up appointment tomorrow if necessary. I will prescribe Phenergan as an alternative or additional nausea medication. I did discuss the potential for hospice. Patient was to continue with palliative chemotherapy for now as long as his pain can be controlled. He is aware of the hospice option should he decide to go that route. Patient did have a leukocytosis but was afebrile and no source of infection was found. Patient had made comments earlier in the day about contemplating shooting himself because of his pain. He reportedly does not have access to firearms. Now that his symptoms are better controlled, he no longer has these sentiments. Diagnostic Imaging Diagonstic Imaging: Xray Plain Films/CT/US/NM/MRI: chest Comments Chest x-ray viewed by me and report reviewed. See report below: NAME: KWAME LOPEZ [facility] REC#: [id number] PT STATUS: REG ER : 1955 PHYSICIAN: JUAN ACUÑA MD ADMIT DATE: 10/10/16/ER Draft Date of Exam:10/10/16 CHEST PA/LAT (2 VIEW) EXAMINATION: PA and lateral views of the chest. INDICATION: Chest pain. FINDINGS: There is a small right pleural effusion and right basilar infiltrate or atelectasis, slightly increased from 10/04/2016. The left lung is clear with a minimal effusion seen. The heart size is normal. There is no pneumothorax. A 4 cm mass projecting above the aortic knob is noted. An infusion port with the tip at the upper right atrium is seen. IMPRESSION: 1. Increased right basilar atelectasis or infiltrate. Small bilateral effusions, more on the right side. 2. Stable mass in the medial left upper lobe. Dictated on workstation # [id number] Dict: 10/10/16 1034 Trans: 10/10/16 1041 ANNAMARIE [phone] Interpreted by: KAYLENE MILNER MD Diagonstic Imaging: Xray Plain Films/CT/US/NM/MRI: abdomen, pelvis Comments KUB and upright abdominal films viewed by me and report reviewed. See report below: NAME: KWAME LOPEZ [facility] REC#: [id number] PT STATUS: REG ER : 1955 PHYSICIAN: JUAN ACUÑA MD ADMIT DATE: 10/10/16/ER Draft Date of Exam:10/10/16 ABDOMEN, FLAT UPRIGHT/DECUB EXAMINATION: Upright and supine views of the abdomen. INDICATION: Abdominal pain. FINDINGS: There are bilateral small pleural effusions. The liver appears enlarged. There is no pneumoperitoneum and no dilated bowel loops to suggest obstruction. IMPRESSION: Suggestion of hepatomegaly. Small bilateral pleural effusions. Dictated on workstation # [id number] Dict: 10/10/16 1036 Trans: 10/10/16 1051 ANNAMARIE [phone] Interpreted by: KAYLENE MILNER MD Departure Impression Impression: Primary Impression: Chronic pain due to neoplasm Additional Impressions: Nausea Hypovolemia Disposition: 01 HOME, SELF-CARE Condition: Improved Departure-Patient Inst. Decision time for Depature: 12:00 Referrals: AMBROSIO LILLY MD (PCP/Family) Primary Care Physician Patient Instructions: CHRONIC PAIN Add. Discharge Instructions: You may increase your oxycodone to 10-20 mg (1 to 2 tablets) every 6 hours as needed for pain. Continue using the fentanyl patches for background pain control. For nausea use Zofran (ondansetron) tablets or dissolvable tablets. Follow Zofran with Phenergan (promethazine) 10-15 minutes later for nausea not controlled by Zofran. All discharge instructions reviewed with patient and/or family. Voiced understanding. Scripts Promethazine HCl (Promethazine Tablet)25 Mg [id number] Mg PO Q6H PRN NAUSEA/ VOMITING #30 TAB Prov:JUAN ACUÑA MD 10/10/16 Ondansetron (Zofran Odt)8 Mg Tab.rapdis8 Mg SL Q6H PRN NAUSEA/VOMITING #30 TAB Prov:JUAN ACUÑA MD 10/10/16 Copy Copies To 1: ANAYA MANDEL JOSHUA T MD Oct 10, 2016 10:20
[2016-10-10 10:25] LABS: ALANINE AMINOTRANSFERASE 26 U/L (0-55); ALBUMIN 2.9 G/DL (3.2-4.5); ANION GAP 11 MMOL/L (5-14); ASPARTATE AMINO TRANSFERASE 48 U/L (5-34); BILIRUBIN,TOTAL 1.8 MG/DL (0.1-1.0); BLOOD UREA NITROGEN 9 MG/DL (7-18); BUN/CREATININE RATIO 15; CALCIUM 8.6 MG/DL (8.5-10.1); CARBON DIOXIDE 26 MMOL/L (21-32); CHLORIDE 93 MMOL/L (98-107); CREATININE SERUM 0.61 MG/DL (0.60-1.30); GFR ESTIMATED > 60; GLUCOSE 190 MG/DL (70-105); LIPASE 8 U/L (8-78); POTASSIUM 3.8 MMOL/L (3.6-5.0); SODIUM 130 MMOL/L (135-145); TOTAL PROTEIN 6.1 G/DL (6.4-8.2)
[2016-10-10 10:36] LABS: BAND NEUTROPHILS 3 %; BASOPHILS % (MANUAL) 0 %; EOSINOPHILS % (MANUAL) 0 %; LYMPHOCYTES % (MANUAL) 3 %; NEUTROPHILS % (MANUAL) 85 %
--- NOTE | 2016-10-10 10:41 | Diagnostic Imaging Report ---
EXAMINATION: PA and lateral views of the chest. INDICATION: Chest pain. FINDINGS: There is a small right pleural effusion and right basilar infiltrate or atelectasis, slightly increased from 10/04/2016. The left lung is clear with a minimal effusion seen. The heart size is normal. There is no pneumothorax. A 4 cm mass projecting above the aortic knob is noted. An infusion port with the tip at the upper right atrium is seen. IMPRESSION: 1. Increased right basilar atelectasis or infiltrate. Small bilateral effusions, more on the right side. 2. Stable mass in the medial left upper lobe. Dictated by: Dictated on workstation # [id number]
[2016-10-10] MEDS ORDERED: PROMETHAZINE INJ 25 MG/ML (PHENERGAN) AMP IVP ONE (10:45)
--- NOTE | 2016-10-10 10:51 | Diagnostic Imaging Report ---
EXAMINATION: Upright and supine views of the abdomen. INDICATION: Abdominal pain. FINDINGS: There are bilateral small pleural effusions. The liver appears enlarged. There is no pneumoperitoneum and no dilated bowel loops to suggest obstruction. IMPRESSION: Suggestion of hepatomegaly. Small bilateral pleural effusions. Dictated by: Dictated on workstation # [id number]
[2016-10-10 11:36] LABS: KETONES,URINE 3+ (NEGATIVE); LEUKOCYTE ESTERASE ,URINE 1+ (NEGATIVE); NITRITE,URINE NEGATIVE (NEGATIVE); PH,URINE 6 (5-9); PROTEIN,URINE 3+ (NEGATIVE); UROBILINOGEN,URINE 4 MG/DL (NORMAL)
[2016-10-10 11:48] LABS: BILIRUBIN,URINE 2+ (NEGATIVE); WBC,URINE RARE /HPF
[2016-10-10] MEDS ORDERED: NS IV 500 ML 500 ML IV ONE (11:52)
[2016-10-10] MEDS ORDERED: PROM25TA14 PO (12:22)
[2016-10-10] MEDS ORDERED: ONDA8TAB9 SL (12:22)
[2016-10-10] MEDS ORDERED: HYDROmorphone (DILAUDID) 2 MG/ML VIAL ONE (12:54)
[2016-10-10] MEDS ORDERED: HEParin (CENTRAL IV FLUSH) 500 UNIT/5 ML SYR ONE (13:00)
[2016-10-10 13:16] VITALS: BP 156/92
== END 2016-10-10 13:16 | disposition home or self-care (01) ==
LOC: EDUNIT# 09:34 → ER 09:37
DX: G89.3 Neoplasm related pain (acute) (chronic) (principal); E86.1 Hypovolemia; R11.0 Nausea; C34.10 Malignant neoplasm of upper lobe, unspecified bronchus or lung; C22.9 Malignant neoplasm of liver, not specified as primary or secondary; C79.89 Secondary malignant neoplasm of other specified sites; J90 Pleural effusion, not elsewhere classified; J44.9 Chronic obstructive pulmonary disease, unspecified; I10 Essential (primary) hypertension; I48.0 Paroxysmal atrial fibrillation; Z87.891 Personal history of nicotine dependence; Z79.01 Long term (current) use of anticoagulants; Z79.899 Other long term (current) drug therapy
CPT/HCPCS: 36415; 71020; 74020; 80053; 81000; 83690; 85007; 85027; 96361; 96374; 96375; 96376

== ENCOUNTER 2016-10-12 13:01 | Outpatient (RCR) | payer OTHER ==
--- OUTSIDE RECORDS SUMMARY | 2016-08-29 15:38 | XMS REPORT | Continuity of Care Document ---
Author Author [facility] Organization [facility] Address Unknown Phone Unavailable Care Team Providers Care Showplace Manager Name Role Phone AMBROSIO LILLY MD PCP Insurance Providers Payer Name Policy Number Subscriber Name Relationship [employer]NA [id number] Fabrice Lopez 19 Self / Same As Patient Advance Directives Directive Response Recorded Date/Time Advance Directives No 05/19/16 6:22pm Health Care Power of Proj Mgr No 05/19/16 6:22pm Resuscitation Status Full Code [...] - 99.5) 05/19/2016 6:22pm Temperature (Calculated Celsius) 36.87702 degrees C (36.4 - 37.5) 05/19/2016 6:22pm [...] 10.00 inches 05/19/2016 6:22pm Height (Calculated Centimeters) 177.834979 cm 05/19/2016 6:22pm Weight (Pounds) 200 pounds 05/19/2016 6:22pm Weight (Ounces) 0 oz 05/19/2016 6:22pm Weight (Calculated Grams) 73369.551 gm 05/19/2016 6:22pm Weight (Calculated Kilograms) 90.001722 kilograms 05/19/2016 6:22pm Calculated BMI 27.3 05/19/2016 [...] Date Attending Provider Departed Emergency Room [facility] 05/19/16 5:55pm 05/19 6:50pm AMBROSIO HANSEN DO Registered Recurring [facility] 05/17/16 10:08am ANAYA MANDEL Discharged Recurring [facility] 01/26/16 9:15am 11:59pm ANAYA MANDEL Recent Diagnosis
[2016-09-01 11:15] LABS: KETONES,URINE NEGATIVE (NEGATIVE); LEUKOCYTE ESTERASE ,URINE 1+ (NEGATIVE); NITRITE,URINE NEGATIVE (NEGATIVE); PH,URINE 5 (5-9); PROTEIN,URINE 3+ (NEGATIVE); UROBILINOGEN,URINE 4 MG/DL (NORMAL)
[2016-09-01 11:16] LABS: BILIRUBIN,URINE 1+ (NEGATIVE); SQUAMOUS EPITHELIAL CELL,UR RARE /HPF; WBC,URINE RARE /HPF
[2016-09-04 08:55] LABS: BASOPHILS % (AUTO) 0 % (0-10); EOSINOPHILS % (AUTO) 0 % (0-10); LYMPHOCYTES % (AUTO) 12 % (12-44); MEAN CORPUSCULAR HEMOGLOBIN 32 PG (25-34); MEAN CORPUSCULAR HGB CONC 36 G/DL (32-36); MEAN CORPUSCULAR VOLUME 89 FL (80-99); MEAN PLATELET VOLUME 9.2 FL (7.4-10.4); MONOCYTES # (AUTO) 1.3 X 10^3 (0.0-1.0); MONOCYTES % (AUTO) 14 % (0-12); NEUTROPHILS # (AUTO) 6.5 X 10^3 (1.8-7.8); NEUTROPHILS % (AUTO) 74 % (42-75); PLATELET COUNT 193 10^3/uL (130-400); RED BLOOD COUNT 5.03 10^6/uL (4.35-5.85); RED CELL DISTRIBUTION WIDTH 14.5 % (10.0-14.5); WHITE BLOOD COUNT 8.9 10^3/uL (4.3-11.0)
[2016-09-04 09:33] LABS: ALANINE AMINOTRANSFERASE 40 U/L (0-55); ALBUMIN 3.5 G/DL (3.2-4.5); ANION GAP 13 MMOL/L (5-14); ASPARTATE AMINO TRANSFERASE 44 U/L (5-34); BLOOD UREA NITROGEN 8 MG/DL (7-18); BUN/CREATININE RATIO 11; CALCIUM 8.8 MG/DL (8.5-10.1); CARBON DIOXIDE 21 MMOL/L (21-32); CHLORIDE 99 MMOL/L (98-107); CREATININE SERUM 0.72 MG/DL (0.60-1.30); GFR ESTIMATED > 60; GLUCOSE 157 MG/DL (70-105); LACTATE DEHYDROGENASE 720 U/L (125-220); POTASSIUM 3.6 MMOL/L (3.6-5.0); SODIUM 133 MMOL/L (135-145); TOTAL PROTEIN 6.7 G/DL (6.4-8.2)
[2016-09-11 14:34] LABS: BASOPHILS % (AUTO) 0 % (0-10); EOSINOPHILS % (AUTO) 0 % (0-10); LYMPHOCYTES % (AUTO) 20 % (12-44); MEAN CORPUSCULAR HEMOGLOBIN 31 PG (25-34); MEAN CORPUSCULAR HGB CONC 35 G/DL (32-36); MEAN CORPUSCULAR VOLUME 90 FL (80-99); MEAN PLATELET VOLUME 9.3 FL (7.4-10.4); MONOCYTES # (AUTO) 0.1 X 10^3 (0.0-1.0); MONOCYTES % (AUTO) 3 % (0-12); NEUTROPHILS # (AUTO) 3.9 X 10^3 (1.8-7.8); NEUTROPHILS % (AUTO) 77 % (42-75); PLATELET COUNT 107 10^3/uL (130-400); RED BLOOD COUNT 4.45 10^6/uL (4.35-5.85); RED CELL DISTRIBUTION WIDTH 13.9 % (10.0-14.5); WHITE BLOOD COUNT 5.1 10^3/uL (4.3-11.0)
[2016-09-11 15:28] LABS: ANION GAP 6 MMOL/L (5-14); BLOOD UREA NITROGEN 15 MG/DL (7-18); BUN/CREATININE RATIO 19; CALCIUM 8.7 MG/DL (8.5-10.1); CARBON DIOXIDE 27 MMOL/L (21-32); CHLORIDE 100 MMOL/L (98-107); CREATININE SERUM 0.78 MG/DL (0.60-1.30); GFR ESTIMATED > 60; GLUCOSE 389 MG/DL (70-105); POTASSIUM 4.4 MMOL/L (3.6-5.0); SODIUM 133 MMOL/L (135-145)
[2016-09-18 14:14] LABS: BASOPHILS % (AUTO) 0 % (0-10); EOSINOPHILS % (AUTO) 1 % (0-10); LYMPHOCYTES # (AUTO) 1.4 X 10^3 (1.0-4.0); LYMPHOCYTES % (AUTO) 30 % (12-44); MEAN CORPUSCULAR HEMOGLOBIN 32 PG (25-34); MEAN CORPUSCULAR HGB CONC 36 G/DL (32-36); MEAN CORPUSCULAR VOLUME 89 FL (80-99); MEAN PLATELET VOLUME 10.3 FL (7.4-10.4); MONOCYTES # (AUTO) 0.6 X 10^3 (0.0-1.0); MONOCYTES % (AUTO) 13 % (0-12); NEUTROPHILS # (AUTO) 2.6 X 10^3 (1.8-7.8); NEUTROPHILS % (AUTO) 57 % (42-75); PLATELET COUNT 70 10^3/uL (130-400); RED BLOOD COUNT 4.49 10^6/uL (4.35-5.85); RED CELL DISTRIBUTION WIDTH 14.6 % (10.0-14.5); WHITE BLOOD COUNT 4.6 10^3/uL (4.3-11.0)
[2016-09-18 15:01] LABS: ANION GAP 10 MMOL/L (5-14); BLOOD UREA NITROGEN 9 MG/DL (7-18); BUN/CREATININE RATIO 13; CALCIUM 8.8 MG/DL (8.5-10.1); CARBON DIOXIDE 25 MMOL/L (21-32); CHLORIDE 97 MMOL/L (98-107); CREATININE SERUM 0.72 MG/DL (0.60-1.30); GFR ESTIMATED > 60; GLUCOSE 128 MG/DL (70-105); POTASSIUM 3.7 MMOL/L (3.6-5.0); SODIUM 132 MMOL/L (135-145)
[2016-09-21 13:51] LABS: BASOPHILS % (AUTO) 0 % (0-10); EOSINOPHILS % (AUTO) 0 % (0-10); LYMPHOCYTES # (AUTO) 1.2 X 10^3 (1.0-4.0); LYMPHOCYTES % (AUTO) 22 % (12-44); MEAN CORPUSCULAR HEMOGLOBIN 31 PG (25-34); MEAN CORPUSCULAR HGB CONC 36 G/DL (32-36); MEAN CORPUSCULAR VOLUME 88 FL (80-99); MEAN PLATELET VOLUME 9.7 FL (7.4-10.4); MONOCYTES # (AUTO) 0.9 X 10^3 (0.0-1.0); MONOCYTES % (AUTO) 16 % (0-12); NEUTROPHILS # (AUTO) 3.3 X 10^3 (1.8-7.8); NEUTROPHILS % (AUTO) 62 % (42-75); PLATELET COUNT 190 10^3/uL (130-400); WHITE BLOOD COUNT 5.3 10^3/uL (4.3-11.0)
[2016-09-21 14:04] LABS: KETONES,URINE NEGATIVE (NEGATIVE); LEUKOCYTE ESTERASE ,URINE 1+ (NEGATIVE); NITRITE,URINE NEGATIVE (NEGATIVE); PH,URINE 7 (5-9); PROTEIN,URINE 4+ (NEGATIVE); UROBILINOGEN,URINE 4 MG/DL (NORMAL)
[2016-09-21 14:13] LABS: BILIRUBIN,URINE 1+ (NEGATIVE); WBC,URINE 0-2 /HPF
[2016-09-21 14:14] LABS: HYALINE CASTS, URINE 25-50 /LPF
[2016-09-21 14:15] LABS: ALANINE AMINOTRANSFERASE 59 U/L (0-55); ALBUMIN 3.6 G/DL (3.2-4.5); ANION GAP 10 MMOL/L (5-14); ASPARTATE AMINO TRANSFERASE 58 U/L (5-34); BILIRUBIN,TOTAL 2.2 MG/DL (0.1-1.0); BLOOD UREA NITROGEN 8 MG/DL (7-18); BUN/CREATININE RATIO 10; CALCIUM 9.1 MG/DL (8.5-10.1); CARBON DIOXIDE 26 MMOL/L (21-32); CHLORIDE 94 MMOL/L (98-107); CREATININE SERUM 0.79 MG/DL (0.60-1.30); GFR ESTIMATED > 60; GLUCOSE 252 MG/DL (70-105); POTASSIUM 3.7 MMOL/L (3.6-5.0); SODIUM 130 MMOL/L (135-145); TOTAL PROTEIN 6.8 G/DL (6.4-8.2)
[~2016-10-12] VITALS: Ht 175.3 cm; Wt 90.3 kg
[~2016-10-12 13:01] MED LIST changes: +FAMOTIDINE 20MG/2ML IV (CANCER CTR) IV SCH; +NORMAL SALINE IV SCH; +NS (IVPB) CANCER CENTER 250 ML ONE; +NS IV 1000 ML (CANCER CTR) IV SCH; +NS IV 500 ML (CANCER CENTER) 500 ML ONE; +NS IV SCH; +ONDA8TAB9 SL; +ONDANSETRON 16 MG, DEXAMETHASONE 10 MG/NS 50 ML IVPB IV SCH; +PACLITAXEL SEMI SYNTHETIC IV SCH; +PALONOSETRON 0.25 MG, DEXAMETHASONE 10 MG/NS 50 ML IVPB IV PRN; +PROM25TA14 PO; +TOPOTECAN HCL IV SCH; +diphenhydrAMINE 25 MG TAB (BENADRYL) CANCER CENTER PO SCH; +morphine INJ 10 MG/ML 1ML (CANCER CENTER) IV PRN; +morphine INJ 4 MG/ML 1 ML (CANCER CTR) IV PRN
[2016-10-12] MEDS ORDERED: fentaNYL INJ 100 MCG/2 ML (CANCER CENTER) ONE (13:42)
[2016-10-12 13:48] LABS: BASOPHILS % (AUTO) 0 % (0-10); EOSINOPHILS % (AUTO) 0 % (0-10); LYMPHOCYTES # (AUTO) 0.5 X 10^3 (1.0-4.0); LYMPHOCYTES % (AUTO) 5 % (12-44); MEAN CORPUSCULAR HEMOGLOBIN 30 PG (25-34); MEAN CORPUSCULAR HGB CONC 34 G/DL (32-36); MEAN CORPUSCULAR VOLUME 90 FL (80-99); MEAN PLATELET VOLUME 8.9 FL (7.4-10.4); MONOCYTES # (AUTO) 1.2 X 10^3 (0.0-1.0); MONOCYTES % (AUTO) 11 % (0-12); NEUTROPHILS # (AUTO) 8.7 X 10^3 (1.8-7.8); NEUTROPHILS % (AUTO) 84 % (42-75); PLATELET COUNT 287 10^3/uL (130-400); RED BLOOD COUNT 4.47 10^6/uL (4.35-5.85); WHITE BLOOD COUNT 10.3 10^3/uL (4.3-11.0)
[2016-10-12 14:25] LABS: ALANINE AMINOTRANSFERASE 29 U/L (0-55); ALBUMIN 2.8 G/DL (3.2-4.5); ANION GAP 12 MMOL/L (5-14); ASPARTATE AMINO TRANSFERASE 52 U/L (5-34); BILIRUBIN,TOTAL 1.8 MG/DL (0.1-1.0); BLOOD UREA NITROGEN 6 MG/DL (7-18); BUN/CREATININE RATIO 10; CALCIUM 8.5 MG/DL (8.5-10.1); CARBON DIOXIDE 26 MMOL/L (21-32); CHLORIDE 95 MMOL/L (98-107); GFR ESTIMATED > 60; GLUCOSE 153 MG/DL (70-105); LACTATE DEHYDROGENASE 1051 U/L (125-220); POTASSIUM 4.1 MMOL/L (3.6-5.0); SODIUM 133 MMOL/L (135-145)
[2016-10-12] MEDS ORDERED: ONDANSETRON MDV (CANCER CENTER 8 MG, DEXAMETHASONE INJ (CANCER CTR) 4 MG in NS (IVPB) C... IV NR (15:15)
== END 2016-11-27 | disposition home or self-care (01) ==
LOC: ONC 13:01
PROVIDERS: ATTEND Internal Medicine Hematology & Oncology
DX: Z51.11 Encounter for antineoplastic chemotherapy (principal); C34.02 Malignant neoplasm of left main bronchus; C77.1 Secondary and unspecified malignant neoplasm of intrathoracic lymph nodes; G40.909 Epilepsy, unspecified, not intractable, without status epilepticus; E11.9 Type 2 diabetes mellitus without complications; F17.210 Nicotine dependence, cigarettes, uncomplicated
CPT/HCPCS: 36415; 36591; 80048; 80053; 81000; 83615; 85025; 96374; 96375; 96376; 96413; 99213